=== PATIENT | female | born 1995 | race Caucasian/White ===

== ENCOUNTER 2016-12-15 16:10 | Emergency (ER) | payer OTHER ==
[~2016-12-15] VITALS: Ht 167.6 cm; Wt 149.7 kg
[~2016-12-15 16:10] MED LIST: CLIN-44 PO; DOXY100T PO; HYDR-971 PO; LEVO500T38 PO; METR500T4 PO; ONDA4TAB10 SL; PNV1TABL4 PO; SERT50TA PO; TRAM-29 PO; vitamin d
[2016-12-15 16:17] VITALS: BP 144/87
[2016-12-15 17:10] LABS: BILIRUBIN,URINE NEGATIVE (NEG); GLUCOSE,URINE NEGATIVE (NEG); NITRITE,URINE NEGATIVE (NEG); PH,URINE 7.5; PROTEIN,URINE NEGATIVE (NEG-TRACE); UROBILINOGEN,URINE 0.2 mg/dL (0.2 mg/dL)
[2016-12-15 17:22] LABS: BACTERIA,URINE FEW /HPF (0-FEW); RBC,URINE 0 /HPF (0-2)
[2016-12-15 17:23] LABS: SQUAMOUS EPITHELIAL CELL,UR MOD /LPF
[2016-12-15] MEDS ORDERED: PREN1TAB58 PO (17:36)
--- NOTE | 2016-12-15 17:36 | PHYS DOC ---
Past Medical History Past Medical History: Anxiety Additional Past Medical Histor: hernia Past Surgical History: Cholecystectomy, Tonsillectomy Additional Past Surgical Histo: R)eye SX Alcohol Use: None Drug Use: None Adult General Chief Complaint Chief Complaint: ABDOMINAL PAIN [facility] HPI Patient is a 21 year old female with history of anxiety who presents today stating she believes she is . Patient states she did a test at home and it was faintly positive. She states her last menstrual cycle was a month ago approximately November 07, 2016. She is a G 1 para 1. Patient states she also feels . Patient denies abdominal pain urgency frequency or dysuria, she states she would like to be checked to make sure she is . Review of Systems Review of Systems Constitutional: Denies fever or chills [] Eyes: Denies change in visual acuity, redness, or eye pain [] HENT: Denies nasal congestion or sore throat [] Respiratory: Denies cough or shortness of breath [] Cardiovascular: No additional information not addressed in HPI [] GI: check : Denies dysuria or hematuria [] Musculoskeletal: Denies back pain or joint pain [] Integument: Denies rash or skin lesions [] Neurologic: Denies headache, focal weakness or sensory changes [] Endocrine: Denies polyuria or polydipsia [] Allergies Allergies Allergies Coded Allergies Type Severity Reaction Last Updated Verified Penicillins Allergy Intermediate 09/02/16 Yes cefprozil Allergy Intermediate 09/02/16 Yes Physical Exam Physical Exam Constitutional: Well developed, well nourished, no acute distress, non-toxic appearance. [] HENT: Normocephalic, atraumatic, bilateral external ears normal, oropharynx moist, no oral exudates, nose normal. [] Eyes: PERRLA, EOMI, conjunctiva normal, no discharge. [] Neck: Normal range of motion, no tenderness, supple, no stridor. [] Cardiovascular:Heart rate regular rhythm, no murmur [] Lungs & Thorax: Bilateral breath sounds clear to auscultation [] Abdomen: Bowel sounds normal, soft, no tenderness, no masses, no pulsatile masses. [] Skin: Warm, dry, no erythema, no rash. [] Back: No tenderness, no CVA tenderness. [] Extremities: No tenderness, no cyanosis, no clubbing, ROM intact, no edema. [] Neurologic: Alert and oriented X 3, normal motor function, normal sensory function, no focal deficits noted. [] Psychologic: Affect normal, judgement normal, mood normal. [] Current Patient Data Vital Signs Vital Signs Date Time Temp Pulse Resp B/P Pulse Ox O2 Delivery O2 Flow Rate FiO2 12/15/16 16:17 98.7 100 18 144/87 100 Room Air 98.7 Lab Values Laboratory Tests Test 12/15/16 16:20 Urine Collection Type Unknown Urine Color Yellow Urine Clarity Clear Urine pH 7.5 Urine Specific [place] 1.020 Urine Protein Negativemg/dL (NEG-TRACE) Urine Glucose (UA) Negativemg/dL (NEG) Urine Ketones (Stick) Negativemg/dL (NEG) Urine Blood Negative (NEG) Urine Nitrite Negative (NEG) Urine Bilirubin Negative (NEG) Urine Urobilinogen Dipstick 0.2mg/dL (0.2 mg/dL) Urine Leukocyte Esterase Negative (NEG) Urine RBC 0/HPF (0-2) Urine WBC 1-4/HPF (0-4) Urine Squamous Epithelial Cells Mod/LPF Urine Bacteria Few/HPF (0-FEW) Urine Mucus Slight/LPF EKG EKG [] Radiology/Procedures Radiology/Procedures [] Course & Med Decision Making Course & Med Decision Making Pertinent Labs and Imaging studies reviewed. (See chart for details) Patient is in the ED concerned she could be , her last menstrual cycle was November 07, 2016. Positive urine hCG, urine analysis is negative for infection, results were given to her, she was instructed to follow up with an OB /AIRCRAFT POWER PLANT ASSEMBLER as soon as possible. vitamins recommended. Dragon Disclaimer Dragon Disclaimer This electronic medical record was generated, in whole or in part, using a voice recognition dictation system. Departure Departure Impression: Primary Impression: Disposition: HOME, SELF-CARE Condition: STABLE Referrals: NATALIO SIMS MD (PCP) MADI DE LA TORRE Jr, MD see your RESEARCH ELECTRICIAN in one week Patient Instructions: ABCs of Additional Instructions: Your test is positive. We recommend you start taking vitamins and follow up with an RESEARCH ELECTRICIAN as soon as possible. Come back to the ED if you develop any of the following signs or symptoms including uncontrolled nausea vomiting, back pain, vaginal bleeding,or abdominal pain with cramping. Come back to the ED for any other concerns you have medically. Scripts Vits W-Ca,Fe,Fa(<1MG) ( Vitamins)1 Each Tablet1 Tab PO DAILY # 90 TAB Ref 3 Prov:RANJIT US APRN 12/15/16 Problem Qualifiers Primary Impression: Weeks of gestation: less than 8 weeks Qualified Code: Z3A.01 - Less than 8 weeks gestation of RANJIT US APRN Dec 15, 2016 17:36
== END 2016-12-15 17:40 | disposition home or self-care (01) ==
LOC: ER 16:10
DX: Z33.1 Pregnant state, incidental (principal); F41.9 Anxiety disorder, unspecified; Z88.0 Allergy status to penicillin; Z88.1 Allergy status to other antibiotic agents
CPT/HCPCS: 81001; 81025; 99283

== ENCOUNTER 2016-12-18 20:50 | Emergency (ER) | payer OTHER ==
[~2016-12-18 20:50] MED LIST changes: +PREN1TAB58 PO
[2016-12-18 21:16] VITALS: BP 132/70
[2016-12-18 22:18] LABS: BILIRUBIN,URINE NEGATIVE (NEG); GLUCOSE,URINE NEGATIVE (NEG); NITRITE,URINE NEGATIVE (NEG); PH,URINE 6.5; PROTEIN,URINE NEGATIVE (NEG-TRACE); UROBILINOGEN,URINE 0.2 mg/dL (0.2 mg/dL)
[2016-12-18 22:25] LABS: BACTERIA,URINE MODERATE /HPF (0-FEW); RBC,URINE 0 /HPF (0-2); SQUAMOUS EPITHELIAL CELL,UR MOD /LPF; WBC,URINE 0 /HPF (0-4)
--- NOTE | 2016-12-18 22:41 | PHYS DOC ---
Past Medical History Past Medical History: Anxiety Additional Past Medical Histor: hernia Past Surgical History: Cholecystectomy, Tonsillectomy Additional Past Surgical Histo: R)eye SX Alcohol Use: None Drug Use: None Adult General Chief Complaint Chief Complaint: ABDOMINAL PAIN IN HPI HPI 21-year-old female who states she's had some lower abdominal cramping but no bleeding for the last several days. She was seen in this department 3 days prior and had a urine test is positive and told to follow-up with her OB doctor. She was given vitamins at that time but no other laboratory workup was indicated. Shestates she's having continued cramping pain but again no passage of any tissue or blood. She denies any dysuria or hematuria. She denies any nausea or vomiting. She states her bowel movement normal. Review of Systems Review of Systems Constitutional: Denies fever or chills [] Eyes: Denies change in visual acuity, redness, or eye pain [] HENT: Denies nasal congestion or sore throat [] Respiratory: Denies cough or shortness of breath [] Cardiovascular: No additional information not addressed in HPI [] GI: Denies abdominal pain, nausea, vomiting, bloody stools or diarrhea [] : Denies dysuria or hematuria [] Musculoskeletal: Denies back pain or joint pain [] Integument: Denies rash or skin lesions [] Neurologic: Denies headache, focal weakness or sensory changes [] Endocrine: Denies polyuria or polydipsia [] Allergies Allergies Allergies Coded Allergies Type Severity Reaction Last Updated Verified Penicillins Allergy Intermediate 09/02/16 Yes cefprozil Allergy Intermediate 09/02/16 Yes Physical Exam Physical Exam Constitutional: Well developed, well nourished, no acute distress, non-toxic appearance. [] HENT: Normocephalic, atraumatic, bilateral external ears normal, oropharynx moist, no oral exudates, nose normal. [] Eyes: PERRLA, EOMI, conjunctiva normal, no discharge. [] Neck: Normal range of motion, no tenderness, supple, no stridor. [] Cardiovascular:Heart rate regular rhythm, no murmur [] Lungs & Thorax: Bilateral breath sounds clear to auscultation [] Abdomen: Bowel sounds normal, soft, mild suprapubic tenderness to palpation, no masses, no pulsatile masses. [] Skin: Warm, dry, no erythema, no rash. [] Back: No tenderness, no CVA tenderness. [] Extremities: No tenderness, no cyanosis, no clubbing, ROM intact, no edema. [] Neurologic: Alert and oriented X 3, normal motor function, normal sensory function, no focal deficits noted. [] Psychologic: Affect normal, judgement normal, mood normal. [] Current Patient Data Vital Signs Vital Signs Date Time Temp Pulse Resp B/P Pulse Ox O2 Delivery O2 Flow Rate FiO2 12/18/16 21:16 97.8 98 20 132/70 98 Room Air 97.8 Lab Values Laboratory Tests Test 12/18/16 20:50 12/18/16 21:35 12/18/16 21:56 POC Urine HCG, Qualitative Hcg positive (Negative) Urine Collection Type Unknown Urine Color Yellow Urine Clarity Clear Urine pH 6.5 Urine Specific [place] 1.025 Urine Protein Negativemg/dL (NEG-TRACE) Urine Glucose (UA) Negativemg/dL (NEG) Urine Ketones (Stick) Negativemg/dL (NEG) Urine Blood Negative (NEG) Urine Nitrite Negative (NEG) Urine Bilirubin Negative (NEG) Urine Urobilinogen Dipstick 0.2mg/dL (0.2 mg/dL) Urine Leukocyte Esterase Negative (NEG) Urine RBC 0/HPF (0-2) Urine WBC 0/HPF (0-4) Urine Squamous Epithelial Cells Mod/LPF Urine Bacteria Moderate/HPF (0-FEW) Urine Mucus Slight/LPF Maternal Serum HCG Beta Subunit 343mIU/mL (0-6) H EKG EKG [] Radiology/Procedures Radiology/Procedures Transvaginal OB ultrasound demonstrates the following: FINDINGS Transabdominal imaging: Uterus measures 9.6 centimeters in length. No intrauterine is identified. Right ovary measures 4.1 x 3.3 x 3.0 centimeters and demonstrates presence of a cyst. Left ovary is not seen with transabdominal imaging. No adnexal masses are identified. Endovaginal imaging: Uterus measures 11.0 centimeters in length. No intrauterine is identified. Endometrial thickness is 11 millimeters. Nabothian cyst is seen. The right ovary measures 2.9 x 3.3 x 2.3 centimeters and demonstrates small corpus luteum cyst measuring 1.7 centimeters in maximum dimension. Left ovary measures 1.2 x 2.3 x 1.4 centimeters and is unremarkable. Both ovaries demonstrate normal vascular flow upon Doppler interrogation and are without evidence of torsion. No adnexal masses are seen. No significant free fluid is identified. Course & Med Decision Making Course & Med Decision Making Pertinent Labs and Imaging studies reviewed. (See chart for details) This 21-year-old female has a transvaginal ultrasound that demonstrates no intrauterine at this time but due to the her low beta hCG level this is likely too early to see an intrauterine and it is recommended that she [id number] beta hCG levels and repeat ultrasound. Return workup is negative. Her urinalysis is also negative. I counseld her to Take Tylenol and Follow up Closely with Her OB Doctor in the Next Week As She Is Too Early in Her at This Time to Visualize an IUP. She was discharged without incident. Dragon Disclaimer Dragon Disclaimer This electronic medical record was generated, in whole or in part, using a voice recognition dictation system. Departure Departure Impression: Primary Impression: Abdominal pain during Disposition: 01 HOME, SELF-CARE Admitting Physician: Other Condition: STABLE Referrals: NATLAIO SIMS MD (PCP) Patient Instructions: Abdominal Pain During , [id number] Additional Instructions: Please follow up with your OB doctor in the next 2-3 days for your abdominal pain. Take your vitamins as prescribed and take tylenol for your pain. Return to the ER if you develop any worsening of your pain or bleeding. GREG ROE DO Dec 18, 2016 22:41
--- NOTE | 2016-12-18 22:57 | RAD ---
PROCEDURE First trimester OB ultrasound with endovaginal imaging. HISTORY Pelvic pain for 2 days. Beta hCG level is 343. TECHNIQUE Transabdominal imaging was performed for initial evaluation of the pelvis. Endovaginal imaging was performed for optimal characterization of the endometrium and to increase sensitivity for detection of intrauterine . COMPARISON None. FINDINGS Transabdominal imaging: Uterus measures 9.6 centimeters in length. No intrauterine is identified. Right ovary measures 4.1 x 3.3 x 3.0 centimeters and demonstrates presence of a cyst. Left ovary is not seen with transabdominal imaging. No adnexal masses are identified. Endovaginal imaging: Uterus measures 11.0 centimeters in length. No intrauterine is identified. Endometrial thickness is 11 millimeters. Nabothian cyst is seen. The right ovary measures 2.9 x 3.3 x 2.3 centimeters and demonstrates small corpus luteum cyst measuring 1.7 centimeters in maximum dimension. Left ovary measures 1.2 x 2.3 x 1.4 centimeters and is unremarkable. Both ovaries demonstrate normal vascular flow upon Doppler interrogation and are without evidence of torsion. No adnexal masses are seen. No significant free fluid is identified. IMPRESSION No intrauterine is identified. No adnexal masses are seen. Given low beta HCG level, most likely possibility is exceedingly early intrauterine . As no definite intrauterine is identified, ectopic cannot be entirely excluded. Recommend serial beta HCG levels and pelvic ultrasound as clinically indicated. Electronically signed by: Martínez Espino MD (Dec 18, 2016 22:55:57)
== END 2016-12-18 23:17 | disposition home or self-care (01) ==
LOC: ER 20:50
DX: O26.899 Other specified pregnancy related conditions, unspecified trimester (principal); R10.30 Lower abdominal pain, unspecified; Z3A.00 Weeks of gestation of pregnancy not specified; Z90.49 Acquired absence of other specified parts of digestive tract; Z88.0 Allergy status to penicillin; Z88.1 Allergy status to other antibiotic agents
CPT/HCPCS: 36415; 76801; 76817; 81001; 81025; 84702; 87086; 99285-25

== ENCOUNTER 2016-12-25 08:56 | Emergency (ER) | payer OTHER ==
[~2016-12-25] VITALS: Ht 170.2 cm; Wt 148.3 kg
--- NOTE | 2016-12-25 09:20 | PHYS DOC ---
Past Medical History Past Medical History: Anxiety Additional Past Medical Histor: hernia Past Surgical History: Cholecystectomy, Tonsillectomy Additional Past Surgical Histo: R)eye SX Alcohol Use: None Drug Use: None Adult General Chief Complaint Chief Complaint: V[facility]AL BLEEDING [facility] HPI Patient is a 21 year old female presents emergency room with complaint of vaginal bleeding that began this morning. Patient states that she is approximately 4 weeks . However, she states her last menstrual period was between November 25 to . Patient is actually been seen here twice previously with related complaints. She had an ultrasound performed last week that was inconclusive for a positive IUP. Patient is a without any history of genitourinary disease or surgeries. Patient states that she had intercourse last night without any complications. She states that she is pending an appointment with Dr. Pathak for her initial OB appointment tomorrow. Review of Systems Review of Systems Constitutional: Denies fever or chills [] Eyes: Denies change in visual acuity, redness, or eye pain [] HENT: Denies nasal congestion or sore throat [] Respiratory: Denies cough or shortness of breath [] Cardiovascular: No additional information not addressed in HPI [] GI: Denies abdominal pain, nausea, vomiting, bloody stools or diarrhea [] : Denies dysuria or hematuria [] Musculoskeletal: Denies back pain or joint pain [] Integument: Denies rash or skin lesions [] Neurologic: Denies headache, focal weakness or sensory changes [] Endocrine: Denies polyuria or polydipsia [] Allergies Allergies Allergies Coded Allergies Type Severity Reaction Last Updated Verified Penicillins Allergy Intermediate 09/02/16 Yes cefprozil Allergy Intermediate 09/02/16 Yes Physical Exam Physical Exam Constitutional: Well developed, well nourished, no acute distress, non-toxic appearance. [] HENT: Normocephalic, atraumatic, bilateral external ears normal, oropharynx moist, no oral exudates, nose normal. [] Eyes: PERRLA, EOMI, conjunctiva normal, no discharge. [] Neck: Normal range of motion, no tenderness, supple, no stridor. [] Cardiovascular:Heart rate regular rhythm, no murmur [] Lungs & Thorax: Bilateral breath sounds clear to auscultation [] Abdomen: Bowel sounds normal, soft, no tenderness, no masses, no pulsatile masses. Hot Punch Press Operator and advertising assistant is Terra, RN. Vaginal vault with a scant amount of dark blood. There are no clots or tissue in the vaginal vault. External os is closed. Patient has no complaints of adnexal tenderness. There are no palpable masses upon exam. Skin: Warm, dry, no erythema, no rash. [] Back: No tenderness, no CVA tenderness. [] Extremities: No tenderness, no cyanosis, no clubbing, ROM intact, no edema. [] Neurologic: Alert and oriented X 3, normal motor function, normal sensory function, no focal deficits noted. [] Psychologic: Affect normal, judgement normal, mood normal. [] Current Patient Data Vital Signs Vital Signs Date Time Temp Pulse Resp B/P Pulse Ox O2 Delivery O2 Flow Rate FiO2 12/25/16 09:10 98.3 95 18 132/70 99 Room Air 98.3 Lab Values Laboratory Tests Test 12/25/16 09:30 Maternal Serum HCG Beta Subunit 130mIU/mL (0-6) H EKG EKG [] Radiology/Procedures Radiology/Procedures [facility] [address] [place] [address] IMAGING REPORT Signed PATIENT: ERICK CASTANON ACCOUNT: [id number] : 1995 LOCATION: ER AGE: 21 SEX: F EXAM STATUS: REG ER ORD. PHYSICIAN: MARK GUILLEN REASON: vaginal bleeding this morning. . LMP 11/25. Prev US 12/18. PROCEDURE: OB < 14 WKS Indication bleeding. Possible . Transabdominal scans were obtained. Transvaginal imaging was not performed. There is no independent confirmation of . No quantitative hCG value is available. Note is made of an ultrasound examination 12/18/2016 and the accompanying report. The uterus measures 10.2 x 5.5 x 5.6 cm. No definite intrauterine gestational sac, yolk sac or pole is seen on the images submitted. Endometrial thickness is approximately 8 mm. The ovaries appeared unremarkable. There is no significant free fluid. IMPRESSION: Normal study. No evidence of IUP. Finding should be correlated with a quantitative hCG value. Diagnostic considerations would include non state, early , spontaneous or ectopic DICTATED and SIGNED BY: ANDRIA DIAZ MD DATE: 12/25/16 1009 CC: MARK GUILLEN; NATALIO SIMS MD ~ Course & Med Decision Making Course & Med Decision Making Pertinent Labs and Imaging studies reviewed. (See chart for details) [] Dragon Disclaimer Dragon Disclaimer This electronic medical record was generated, in whole or in part, using a voice recognition dictation system. Departure Departure Impression: Primary Impression: Miscarriage Disposition: HOME, SELF-CARE Condition: STABLE Referrals: NATALIO SIMS MD (PCP) HARITHA PATHAK MD Patient Instructions: Miscarriage, [id number] Additional Instructions: 1. The ultrasound and hormone level test done today indicate that you have had a miscarriage. 2. Review the discharge instructions for self-care and reasons to return to the emergency department. 3. Absolutely no intercourse or insert anything into your vagina until you're cleared to do so by WOOD TYPE FINISHER. 4. Call Dr. Pathak's office this afternoon or tomorrow to schedule an appointment for Friday for reevaluation and hormone level check. MARK GUILLEN Dec 25, 2016 09:20
--- NOTE | 2016-12-25 10:41 | RAD ---
Indication bleeding. Possible . Transabdominal scans were obtained. Transvaginal imaging was not performed. There is no independent confirmation of . No quantitative hCG value is available. Note is made of an ultrasound examination 12/18/2016 and the accompanying report. The uterus measures 10.2 x 5.5 x 5.6 cm. No definite intrauterine gestational sac, yolk sac or pole is seen on the images submitted. Endometrial thickness is approximately 8 mm. The ovaries appeared unremarkable. There is no significant free fluid. IMPRESSION: Normal study. No evidence of IUP. Finding should be correlated with a quantitative hCG value. Diagnostic considerations would include non state, early , spontaneous or ectopic
[2016-12-25 11:00] VITALS: BP 127/70
[2016-12-25 11:18] LABS: BILIRUBIN,URINE NEGATIVE (NEG); GLUCOSE,URINE NEGATIVE (NEG); NITRITE,URINE NEGATIVE (NEG); PH,URINE 5.5; PROTEIN,URINE NEGATIVE (NEG-TRACE); UROBILINOGEN,URINE 0.2 mg/dL (0.2 mg/dL)
[2016-12-25 11:33] LABS: RBC,URINE >40 /HPF (0-2)
[2016-12-25 11:34] LABS: BACTERIA,URINE 0 /HPF (0-FEW); SQUAMOUS EPITHELIAL CELL,UR MOD /LPF; WBC,URINE 0 /HPF (0-4)
== END 2016-12-25 11:44 | disposition home or self-care (01) ==
LOC: ER 08:56
DX: O03.9 Complete or unspecified spontaneous abortion without complication (principal); F41.9 Anxiety disorder, unspecified; Z3A.01 Less than 8 weeks gestation of pregnancy; Z88.0 Allergy status to penicillin; Z88.8 Allergy status to other drugs, medicaments and biological substances; Z90.49 Acquired absence of other specified parts of digestive tract
CPT/HCPCS: 36415; 76801; 81001; 84702; 86900; 86901; 99285-25

== ENCOUNTER → 2017-02-03 | Outpatient (CLI) | payer OTHER ==
[2017-02-03 15:13] LABS: BASO # 0.1 x10^3/uL (0.0-0.2); BASO % 1 % (0-3); EOS % 3 % (0-3); HEMOGLOBIN 14.8 g/dL (12.0-15.5); LYMPH # 2.6 x10^3/uL (1.0-4.8); LYMPH % 29 % (24-48); MEAN CORPUSCULAR HEMOGLOBIN 31 pg (25-35); MEAN CORPUSCULAR HGB CONC 35 g/dL (31-37); MEAN CORPUSCULAR VOLUME 89 fL (79-100); MONO % 6 % (0-9); NEUT % 61 % (31-73); PLATELET COUNT 328 x10^3/uL (140-400); RED BLOOD COUNT 4.83 x10^6/uL (3.50-5.40); RED CELL DISTRIBUTION WIDTH 13.2 % (11.5-14.5)
--- NOTE | 2017-02-03 15:15 | RAD ---
Indication fever. Smoking history. Pain. Frontal and lateral views of the chest were obtained and are compared to an exam 04/24/2016. The heart and pulmonary vessels appear normal. The lungs are clear. There is no pleural fluid or pneumothorax. IMPRESSION: No acute or focal process is seen in the chest
== END | disposition home or self-care (01) ==
LOC: LAB 14:40
PROVIDERS: ATTEND Surgery
DX: R10.33 Periumbilical pain (principal); R50.9 Fever, unspecified; F17.200 Nicotine dependence, unspecified, uncomplicated
CPT/HCPCS: 36415; 71020; 85027

== ENCOUNTER 2017-03-29 14:33 | Emergency (ER) | payer OTHER ==
[~2017-03-29] VITALS: Ht 172.7 cm; Wt 149.7 kg
[~2017-03-29 14:33] MED LIST changes: -CLIN-44 PO; +CLIN150C14 PO; -LEVO500T38 PO; +LEVO500T59 PO; -METR500T4 PO; +METR500T8 PO; -TRAM-29 PO; +TRAM-48 PO
[2017-03-29] MEDS ORDERED: IV NORMAL SALINE 1000ML BAG 1,000 ML IV SCH (15:56)
[2017-03-29] MEDS ORDERED: ONDANSETRON PF 4 MG/2 ML VIAL. IV ONE (16:00)
--- NOTE | 2017-03-29 16:10 | ED.ADGEN ---
Past Medical History Past Medical History: Anxiety Additional Past Medical Histor: hernia Past Surgical History: Cholecystectomy, Tonsillectomy Additional Past Surgical Histo: R)eye SX Alcohol Use: None Drug Use: None Adult General Chief Complaint Chief Complaint: NAUSEA/VOMITING/DIARRHA HPI HPI Patient is a 22 year old and, history of anxiety, depression, umbilical hernia, who presents to the emergency department with a complaint of intermittent nausea and vomiting over the past 3 days. Patient states that she does not feel nauseous currently, but over the last several days she will sometimes experience nausea and vomiting after eating. She states that she has been eating a variety of foods, but has been avoiding meat and spicy foods. She states she is status post a cholecystectomy. She denies any abdominal pain, any fevers or chills, any sick contacts or exposures, any urinary complaints, any weakness, numbness, tingling, rashes, swelling extremities, travel. States her last bowel movement was today and was normal. Review of Systems Review of Systems Constitutional: Denies fever or chills. [] Eyes: Denies change in visual acuity. [] HENT: Denies nasal congestion or sore throat. [] Respiratory: Denies cough or shortness of breath. [] Cardiovascular: Denies chest pain or edema. [] GI: Denies abdominal pain, no bloody stools or diarrhea, complaining of nausea and vomiting, intermittent over the past several days. : Denies dysuria. [] Musculoskeletal: Denies back pain or joint pain. [] Integument: Denies rash. [] Neurologic: Denies headache, focal weakness or sensory changes. [] Endocrine: Denies polyuria or polydipsia. [] Lymphatic: Denies swollen glands. [] Psychiatric: Denies depression or anxiety. [] Current Medications Current Medications Current Medications Medications (Trade) Dose Ordered Sig/Darnell Start Time Stop Time Status Last Admin Dose Admin Ondansetron HCl (Zofran) 4 mg 1X ONCE 03/29/17 16:00 03/29/17 16:01 DC 03/29/17 16:28 4 MG Sodium Chloride 1,000 ml @ 1,000 mls/hr Q1H 03/29/17 15:56 03/29/17 16:55 03/29/17 16:28 1,000 MLS/HR Allergies Allergies Allergies Coded Allergies Type Severity Reaction Last Updated Verified Penicillins Allergy Intermediate 09/02/16 Yes cefprozil Allergy Intermediate 09/02/16 Yes Physical Exam Physical Exam Constitutional: Well developed, well nourished, no acute distress, non-toxic appearance. [] HENT: Normocephalic, atraumatic, bilateral external ears normal, oropharynx moist, no oral exudates, nose normal. [] Eyes: PERRLA, EOMI, conjunctiva normal, no discharge. [] Neck: Normal range of motion, no tenderness, supple, no stridor. [] Cardiovascular:Heart rate regular rhythm, no murmur, S1, S2, no rubs or gallops. [] Lungs & Thorax: Bilateral breath sounds clear to auscultation, no wheezing, rhonchi, rales. No chest or crepitus or tenderness. [] Abdomen: Bowel sounds normal, obese, soft, no tenderness, no masses, no pulsatile masses. No rebound, rigidity, no guarding. [] Skin: Warm, dry, no erythema, no rash. [] Back: No tenderness, no CVA tenderness. [] Extremities: No tenderness, no cyanosis, no clubbing, ROM intact, no edema. Negative Homans sign. [] Neurologic: Alert and oriented X 3, normal motor function, normal sensory function, no focal deficits noted. [] Psychologic: Affect normal, judgement normal, mood normal. [] Current Patient Data Vital Signs Vital Signs Date Time Temp Pulse Resp B/P (MAP) Pulse Ox O2 Delivery O2 Flow Rate FiO2 03/29/17 15:10 98.1 105 20 150/89 (109) 100 Room Air 98.1 Lab Values Laboratory Tests Test 03/29/17 15:05 03/29/17 15:20 Urine Collection Type Unknown Urine Color Yellow Urine Clarity Clear Urine pH 5.0 Urine Specific [place] 1.020 Urine Protein Negative mg/dL (NEG-TRACE) Urine Glucose (UA) Negative mg/dL (NEG) Urine Ketones (Stick) Negative mg/dL (NEG) Urine Blood Negative (NEG) Urine Nitrite Negative (NEG) Urine Bilirubin Negative (NEG) Urine Urobilinogen Dipstick 0.2 mg/dL (0.2 mg/dL) Urine Leukocyte Esterase Negative (NEG) Urine RBC 0 /HPF (0-2) Urine WBC 0 /HPF (0-4) Urine Squamous Epithelial Cells Mod /LPF Urine Bacteria 0 /HPF (0-FEW) Urine Mucus Slight /LPF Urine Opiates Screen Neg (NEG) Urine Methadone Screen Neg (NEG) Urine Barbiturates Neg (NEG) Urine Phencyclidine Screen Neg (NEG) Urine Amphetamine/Methamphetamine Neg (NEG) Urine Benzodiazepines Screen Neg (NEG) Urine Cocaine Screen Neg (NEG) Urine Cannabinoids Screen Neg (NEG) Urine Ethyl Alcohol Neg (NEG) White Blood Count 8.8 x10^3/uL (4.0-11.0) Red Blood Count 4.87 x10^6/uL (3.50-5.40) Hemoglobin 15.0 g/dL (12.0-15.5) Hematocrit 43.5 % (36.0-47.0) Mean Corpuscular Volume 89 fL (79-100) Mean Corpuscular Hemoglobin 31 pg (25-35) Mean Corpuscular Hemoglobin Concent 34 g/dL (31-37) Red Cell Distribution Width 13.3 % (11.5-14.5) Platelet Count 306 x10^3/uL (140-400) Neutrophils (%) (Auto) 66 % (31-73) Lymphocytes (%) (Auto) 27 % (24-48) Monocytes (%) (Auto) 5 % (0-9) Eosinophils (%) (Auto) 2 % (0-3) Basophils (%) (Auto) 1 % (0-3) Neutrophils # (Auto) 5.8 x10^3uL (1.8-7.7) Lymphocytes # (Auto) 2.4 x10^3/uL (1.0-4.8) Monocytes # (Auto) 0.4 x10^3/uL (0.0-1.1) Eosinophils # (Auto) 0.2 x10^3/uL (0.0-0.7) Basophils # (Auto) 0.1 x10^3/uL (0.0-0.2) Sodium Level 141 mmol/L (136-145) Potassium Level 3.6 mmol/L (3.5-5.1) Chloride Level 102 mmol/L (98-107) Carbon Dioxide Level 31 mmol/L (21-32) Anion Gap 8 (6-14) Blood Urea Nitrogen 7 mg/dL (7-20) Creatinine 0.8 mg/dL (0.6-1.0) Estimated GFR (Cockcroft-Gault) 88.9 BUN/Creatinine Ratio 9 (6-20) Glucose Level 110 mg/dL (70-99) H Calcium Level 8.9 mg/dL (8.5-10.1) Total Bilirubin 0.2 mg/dL (0.2-1.0) Aspartate Amino Transferase (AST) 30 U/L (15-37) Alanine Aminotransferase (ALT) 51 U/L (14-59) Alkaline Phosphatase 68 U/L (46-116) Total Protein 7.8 g/dL (6.4-8.2) Albumin 3.9 g/dL (3.4-5.0) Albumin/Globulin Ratio 1.0 (1.0-1.7) Lipase 129 U/L (73-393) Laboratory Tests 03/29/17 15:20 Laboratory Tests 03/29/17 15:20 EKG EKG ECG: Rhythm strip: Heart rate 100 bpm, sinus tachycardia, no ectopy. As interpreted by me. [] Radiology/Procedures Radiology/Procedures Acute abdominal series: 3 view: Normal cardiopulmonary silhouette, no infiltrates, effusions, soft tissue or bone abdomen is identified. Patient with stool and bowel gas throughout, no evidence of air-fluid levels or obstruction. As interpreted by me. [] Course & Med Decision Making Course & Med Decision Making Pertinent Labs and Imaging studies reviewed. (See chart for details) Patient well-appearing, new business rate are moist, noted to be mildly tachycardic in the emergency department, heart rate of mid 90s to 103, sinus tachycardia on the monitor. Afebrile, experiencing any symptoms, not currently experiencing nausea at this time, has not experienced any abdominal pain. Due to the length the patient's symptoms, after discussion and examination proceeded with acute abdominal series, which reveal some concern for possible constipation, but no evidence of obstruction or other concerning findings, and laboratory studies which were unremarkable. I did discuss these findings with patient, heart rate is now in the 80s to low 90s, she remains comfortable and asymptomatic in the ED. We did discuss concerning symptoms that would prompt return, patient to follow-up with her primary care provider symptoms persist for more than additional 3 days, use Zofran as needed, and to return to the ED if any new or concerning symptoms as discussed develop. Patient voiced understanding and agreement with this plan, discharged home with dietary instructions, precautions, and prescription as stated. Dragon Disclaimer Dragon Disclaimer This electronic medical record was generated, in whole or in part, using a voice recognition dictation system. Departure Impression: Primary Impression: Nausea & vomiting Disposition: 01 HOME, SELF-CARE Condition: STABLE Scripts Ondansetron Hcl (ZOFRAN) 4 Mg Tablet 1 TAB PO Q8HRS Y for NAUSEA, #12 TAB Prov: FABIANA ORTIZ DO 03/29/17 FABIANA ORTIZ DO Mar 29, 2017 16:10
[2017-03-29 16:13] LABS: BASO # 0.1 x10^3/uL (0.0-0.2); BASO % 1 % (0-3); EOS % 2 % (0-3); HEMATOCRIT 43.5 % (36.0-47.0); LYMPH # 2.4 x10^3/uL (1.0-4.8); LYMPH % 27 % (24-48); MEAN CORPUSCULAR HEMOGLOBIN 31 pg (25-35); MEAN CORPUSCULAR HGB CONC 34 g/dL (31-37); MEAN CORPUSCULAR VOLUME 89 fL (79-100); MONO % 5 % (0-9); NEUT % 66 % (31-73); PLATELET COUNT 306 x10^3/uL (140-400); RED BLOOD COUNT 4.87 x10^6/uL (3.50-5.40); RED CELL DISTRIBUTION WIDTH 13.3 % (11.5-14.5); WHITE BLOOD COUNT 8.8 x10^3/uL (4.0-11.0)
[2017-03-29 16:15] VITALS: BP 145/73
[2017-03-29 16:17] LABS: BILIRUBIN,URINE NEGATIVE (NEG); GLUCOSE,URINE NEGATIVE (NEG); NITRITE,URINE NEGATIVE (NEG); PROTEIN,URINE NEGATIVE (NEG-TRACE); UROBILINOGEN,URINE 0.2 mg/dL (0.2 mg/dL)
[2017-03-29 16:23] LABS: BARBITURATES NEG (NEG); BENZODIAZEPINES NEG (NEG); CANNABINOIDS NEG (NEG); COCAINE NEG (NEG); METHADONE NEG (NEG); OPIATES NEG (NEG); PHENCYCLIDINE NEG (NEG)
[2017-03-29 16:28] LABS: BACTERIA,URINE 0 /HPF (0-FEW); RBC,URINE 0 /HPF (0-2); SQUAMOUS EPITHELIAL CELL,UR MOD /LPF; WBC,URINE 0 /HPF (0-4)
[2017-03-29] MEDS ORDERED: ONDA4TAB7 PO (16:36)
[2017-03-29 16:40] LABS: CALCIUM 8.9 mg/dL (8.5-10.1); CREATININE 0.8 mg/dL (0.6-1.0); GFR 88.9; POTASSIUM 3.6 mmol/L (3.5-5.1)
[2017-03-29 16:46] LABS: ALBUMIN 3.9 g/dL (3.4-5.0); TOTAL BILIRUBIN 0.2 mg/dL (0.2-1.0); TOTAL PROTEIN 7.8 g/dL (6.4-8.2)
--- NOTE | 2017-03-30 08:44 | RAD ---
ACUTE ABDOMEN SERIES History: N/V x3 days. Comparison: Two-view chest 02/03/2017. Findings: Frontal chest and supine and upright views of the abdomen. Cardiomediastinal silhouette is normal. There is no pleural effusion or pneumothorax. The lungs are clear. No pneumoperitoneum is identified. Cholecystectomy clip. Air-fluid levels on the upright image. Stool in the ascending colon. No dilated loops of bowel are seen. IMPRESSION: 1. No acute cardiopulmonary process. 2. Nonobstructive bowel gas pattern.
== END 2017-03-29 16:55 | disposition home or self-care (01) ==
LOC: ER 14:33
DX: R11.2 Nausea with vomiting, unspecified (principal); Z88.0 Allergy status to penicillin; Z88.8 Allergy status to other drugs, medicaments and biological substances
CPT/HCPCS: 36415; 74022; 80053; 80305; 80320; 81001; 81025; 83690; 85027; 96374; 99285; J2405; J7030; G0481

== ENCOUNTER 2017-04-23 10:09 | Day surgery (SDC) | payer OTHER ==
[~2017-04-23 10:09] MED LIST changes: +HYDROmorphone 2 MG/ML VIAL IV PRN; +IV RINGERS,LACTATED 1000ML 1,000 ML IV SCH; +LIDOCAINE 1% 1 ML SYRINGE. ID PRN; +ONDA4TAB7 PO; +PROCHLORPERAZINE 10 MG/2 ML VIAL. IV PRN; +fentaNYL PF VIAL 100 MCG/2 ML VIAL IV PRN
[2017-04-23] MEDS ORDERED: fentaNYL PF VIAL 250 MCG/5 ML VIAL ONE (11:43)
[2017-04-23] MEDS ORDERED: ROCURONIUM 50 MG/5 ML VIAL. ONE ×2 (11:43→14:07)
[2017-04-23] MEDS ORDERED: LIDOCAINE 2% PF Vial for OR 5 ML VIAL. ONE ×2 (11:44→14:42)
[2017-04-23] MEDS ORDERED: ONDANSETRON PF 4 MG/2 ML VIAL. ONE (11:44)
[2017-04-23] MEDS ORDERED: DESFLURANE > 120 MINUTES IH ONE (11:44)
[2017-04-23] MEDS ORDERED: DEXAMETHASONE SOD PHOS 20 MG/5 ML VIAL. ONE (11:44)
[2017-04-23] MEDS ORDERED: PROPOFOL 20 ML IV ONE (11:44)
[2017-04-23 12:01] LABS: NEG OBC UR NEG; POS OBC UR POS
[2017-04-23 12:02] LABS: BASO # 0.1 x10^3/uL (0.0-0.2); BASO % 1 % (0-3); EOS % 3 % (0-3); HEMATOCRIT 43.7 % (36.0-47.0); HEMOGLOBIN 15.2 g/dL (12.0-15.5); LYMPH # 2.2 x10^3/uL (1.0-4.8); LYMPH % 25 % (24-48); MEAN CORPUSCULAR HEMOGLOBIN 31 pg (25-35); MEAN CORPUSCULAR HGB CONC 35 g/dL (31-37); MEAN CORPUSCULAR VOLUME 89 fL (79-100); MONO % 7 % (0-9); NEUT % 64 % (31-73); PLATELET COUNT 336 x10^3/uL (140-400); RED CELL DISTRIBUTION WIDTH 13.2 % (11.5-14.5); WHITE BLOOD COUNT 8.7 x10^3/uL (4.0-11.0)
[2017-04-23] MEDS ORDERED: ePHEDrine PF IN SALINE 50 MG/5 ML DISP.SYRIN IV ONE (12:12)
[2017-04-23 12:18] LABS: ALBUMIN 3.8 g/dL (3.4-5.0); CALCIUM 8.9 mg/dL (8.5-10.1); CREATININE 0.8 mg/dL (0.6-1.0); GFR 88.9; POTASSIUM 3.6 mmol/L (3.5-5.1)
[2017-04-23] MEDS ORDERED: PHENYLEPHRINE in 0.9% NACL PF 1 MG/10 ML DISP.SYRIN. IV ONE (12:29)
[2017-04-23] MEDS ORDERED: BUPIVACAINE 0.5% 50 ML VIAL. ONE (13:10)
[2017-04-23] MEDS ORDERED: ESMOLOL 100 MG/10 ML VIAL. IV ONE (13:46)
[2017-04-23] MEDS ORDERED: NEOSTIGMINE METHYLSULFATE 5 MG/5 ML SYRINGE. ONE (14:06)
[2017-04-23] MEDS ORDERED: GLYCOPYRROLATE 1 MG/5 ML VIAL. ONE (14:06)
[2017-04-23] MEDS ORDERED: IV NORMAL SALINE 1000ML BAG 1,000 ML IV ONE (14:56)
[2017-04-23] MEDS: fentaNYL PF VIAL 100 MCG/2 ML VIAL IV PRN ×2 (15:14→15:30)
--- NOTE | 2017-04-23 15:28 | DISCH ---
DISCHARGE INSTRUCTIONS Condition on Discharge Condition on Discharge: Stable Activity After Discharge Activity Instructions for Disc: Activity as tolerated, Avoid exertion Lifting Instructions after Dis: No heavy lifting Driving Instructions after Dis: Do not drive (4-5 days) Diet after Discharge Diet after Discharge: Regular Wound Incision Care Wound/Incision Care: Ice to area for comfort Other wound/incision instructi: maintain PARRIS drain MAMTA HERNANDEZ MD Apr 23, 2017 15:28
--- NOTE | 2017-04-23 15:38 | PDOC4 ---
Operative Note Operative Note Date of procedure: April 23, 2017 Procedure: Repair incarcerated umbilical hernia with mesh, primary repair of incarcerated supraumbilical hernia Preoperative diagnosis: Umbilical incisional hernia Postoperative diagnosis: Same with incarcerated omentum, incarcerated supraumbilical hernia Surgeon: James Anesthesia: Gen. endotracheal IV fluids 1 L EBL: 50 mL Indications: Shanti is a morbidly obese 22-year-old female with long- standing umbilical incisional hernia from single site cholecystectomy. She is brought for repair Operative findings: The umbilical hernia had some incarcerated omentum. A supraumbilical hernia was present with incarcerated preperitoneal fat Operative report: Patient brought to the operating suite and given a general endotracheal anesthetic and the abdomen prepped and draped in usual sterile fashion. Half percent Marcaine plain was infiltrated in an infraumbilical fashion, incision made, dissection carried down to the anterior sheath. The hernia was encircled and a Osiel drain placed around it. The umbilical skin was freed from the underlying hernia sac. The sac was opened and incarcerated omental contents reduced. The hernia sac was excised. The defect was repaired with a ventralex ST hernia patch large [place] with strap. A correct sponge count was obtained prior to placement of the mesh. The mesh was secured in 4 quadrants with 0 PDS suture. The attenuated abdominal wall was closed in running fashion using 0 PDS tied in the middle. We then turned our attention to the supraumbilical hernia. It was exposed circumferentially and the incarcerated fat contents were excised. The small defect was closed with interrupted inverted [id number] 0 Vicryl sutures. A 19 [place] round Carter drain was brought through an inferior lateral stab wound left in the subcutaneous space for postoperative drainage. Viability of the umbilical skin was of concern and as such it was excised. Subcutaneous tissue approximated with 3-0 Vicryl skin incision closed with subcuticular 4-0 Monocryl and Steri-Strips. Sterile dressing applied. Abdominal binder placed. Patient awakened from her anesthetic and taken to the recovery room in satisfactory condition. MAMTA HERNANDEZ MD Apr 23, 2017 15:38
[2017-04-23] MEDS: MORPHINE SULFATE 2 MG/ML DISP.SYRIN. IV PRN ×2 (15:43→16:08)
[2017-04-23] MEDS ORDERED: oxyCODONE/APAP 7.5/325 1 TAB TABLET ONE (15:47)
[2017-04-23] MEDS ORDERED: oxyCODONE/APAP 7.5/325 1 TAB TABLET PO ONE (16:00)
[2017-04-23 17:10] VITALS: BP 110/65
--- NOTE | 2017-04-25 16:05 | PATHOLOGY ---
PATHOLOGY REPORT * * * * * * * * FINAL DIAGNOSIS: A. Segment of focal mesothelial-lined fibromembranous and fibroadipose tissue, umbilical hernia repair: - Hernia sac showing congestion and focal submesothelial reactive fibrosis. B. Segment of skin and subcutaneous tissue, umbilical hernia repair: - Congestion, focal chronic inflammation, and focal recent hemorrhage and coagulative changes. C. Supraumbilical hernia contents: - Segment of fibroadipose tissue showing congestion and focal recent hemorrhage. (JPM:mgr; 04/25/2017) REPORT ELECTRONICALLY SIGNED BY: Jose De La Torre M.D. DATE/TIME: 04/25/2017 16:05 * * * * * * * * GROSS PATHOLOGY: A. Received in formalin labeled "Erick Kearns, umbilical hernia sac," is a piece of dark purple wilkins membranous tissue measuring 13.4 x 6.4 x 1.2 cm. No nodules or lesions are identified. House Builder tissue is submitted in cassette A1. B. Received in formalin labeled "umbilical skin" is an irregularly shaped, somewhat polypoid segment of purple wilkins to pink purple skin measuring 6.7 x 3.5 x 2.7 cm. There are focal instrument teeth clamp faustin on the skin surface, but no well defined lesions are identified grossly. The subcutaneous tissue is yellow brown, lobulated and fatty in appearance. There are no areas of unusual firmness or granularity identified. House Builder sections are submitted in cassette B1. C. Received in formalin labeled "incarcerated supraumbilical hernia contents," is a segment of thinly encapsulated, lobulated fibroadipose tissue measuring 3.8 x 3.0 x 2.7 cm in maximum dimensions. Sectioning reveals homogeneous, bright yellow cut surfaces. House Builder tissue is submitted in cassette C1. (JPM; 04/24/17) INITIAL CPT CODE(S): A; 74794 B; 64904 C; 20076 Professional services performed by [facility] at [facility] [address] [place] [id number] Technical services performed by [facility] at [address] [place] [address], [address], [place] [address]. SPECIMEN(S) RECEIVED: A.Umbilical hernia sac B.Umbilical skin C.Incarcerated supraumbilical hernia contents CLINICAL HISTORY: Umbilical hernia PATIENT: ERICK KEARNS /AGE: 4 1995 (Age: 22) PATIENT #: [id number] ALT CASE #: SPECIMEN COLLECTION DATE: 04/23/2017 SPECIMEN RECEIVED DATE: 04/24/2017 [facility] - [id number] [place] [address] - PHONE: [phone] * * * END OF REPORT * * *
== END 2017-04-23 17:26 | disposition home or self-care (01) ==
LOC: SURG 10:09
PROVIDERS: ATTEND Surgery
DX: K42.0 Umbilical hernia with obstruction, without gangrene (principal); F32.9 Major depressive disorder, single episode, unspecified; Z90.49 Acquired absence of other specified parts of digestive tract; Z82.49 Family history of ischemic heart disease and other diseases of the circulatory system; Z83.3 Family history of diabetes mellitus; Z88.1 Allergy status to other antibiotic agents; Z88.0 Allergy status to penicillin
CPT/HCPCS: 36415; 49587; 80048; 81025; 82040; 85027; C1769; J1100; J1956; J2001; J2270; J2370; J2405; J2704; J2710; J3010; J3490; J7030; 88302; 88304

== ENCOUNTER 2017-05-17 22:59 | Emergency (ER) | payer OTHER ==
[~2017-05-17] VITALS: Ht 167.6 cm; Wt 145.1 kg
[~2017-05-17 22:59] MED LIST changes: -HYDROmorphone 2 MG/ML VIAL IV PRN; -IV RINGERS,LACTATED 1000ML 1,000 ML IV SCH; -LIDOCAINE 1% 1 ML SYRINGE. ID PRN; -PROCHLORPERAZINE 10 MG/2 ML VIAL. IV PRN; -fentaNYL PF VIAL 100 MCG/2 ML VIAL IV PRN
[2017-05-17 23:35] VITALS: BP 154/79
[2017-05-18] MEDS ORDERED: HYDROcodone/APAP 5/325MG 1 TAB TABLET PO ONE
[2017-05-18] MEDS ORDERED: CLIN150C14 PO (00:01)
--- NOTE | 2017-05-18 00:01 | PHYS DOC ---
Past Medical History Past Medical History: Anxiety Additional Past Medical Histor: hernia Past Surgical History: Cholecystectomy, Tonsillectomy Additional Past Surgical Histo: R)eye SX, HERNIA Alcohol Use: None Drug Use: None Adult General Chief Complaint Chief Complaint: DENTAL PROBLEM HPI HPI Patient is a 22 year old female who presents with dental pain. The patient states 3 days ago she broke a tooth while eating. She has severe left lower jaw pain today. Denies fevers/chills, nausea/vomiting, trismus, abscess. Has a dentist appointment in 4 days but pain is severe. Review of Systems Review of Systems Constitutional: Denies fever or chills HENT: reports dental pain. Respiratory: Denies cough GI: Denies nausea, vomiting Integument: Denies rash Neurologic: Denies headache Current Medications Current Medications Current Medications Medications (Trade) Dose Ordered Sig/Darnell Start Time Stop Time Status Last Admin Dose Admin Acetaminophen/ Hydrocodone Bitart (Lortab 5/325) 2 tab 1X ONCE 05/18/17 00:00 05/18/17 00:01 DC 05/18/17 00:12 2 TAB Allergies Allergies Allergies Coded Allergies Type Severity Reaction Last Updated Verified Penicillins Allergy Intermediate 04/23/17 Yes cefprozil Allergy Intermediate 04/23/17 Yes Physical Exam Physical Exam Constitutional: Morbidly obese, no acute distress, non-toxic appearance. HENT: Normocephalic, atraumatic, bilateral external ears normal, oropharynx moist, nose normal. left mandibular premolar avulsion without abscess, mild gingival erythema, no trismus or jaw swelling. left TM is normal in appearance. Eyes: conjunctiva normal, no discharge. Cardiovascular: no edema. Lungs & Thorax: no respiratory distress. Abdomen: nondistended. Skin: Warm, dry, no erythema, no rash. Extremities: No deformity Neurologic: Alert and oriented X 3 Current Patient Data Vital Signs Vital Signs Date Time Temp Pulse Resp B/P (MAP) Pulse Ox O2 Delivery O2 Flow Rate FiO2 05/18/17 00:12 Room Air 05/17/17 23:35 98.3 91 18 98 98.3 EKG EKG [] Radiology/Procedures Radiology/Procedures [] Course & Med Decision Making Course & Med Decision Making Pertinent Labs and Imaging studies reviewed. (See chart for details) The patient presents with dental pain. Gave pain medication. She does have a ride home. Provided antibiotics and pain medication. Recommend continue ibuprofen. Follow-up as soon as possible with a dentist. Return to the emergency department for difficulty breathing or swallowing, any otherwise worsening condition. Discharged home in stable condition. [] Dragon Disclaimer Dragon Disclaimer This electronic medical record was generated, in whole or in part, using a voice recognition dictation system. Departure Departure Impression: Primary Impression: Pain, dental Disposition: HOME, SELF-CARE Condition: STABLE Referrals: NATALIO SIMS MD (PCP) Patient Instructions: Dental Pain, [id number] Additional Instructions: You were seen in the emergency department today for dental pain. Please take prescribed antibiotic. Use ibuprofen for pain. Take [place] for severe breakthrough pain. No drinking alcohol or driving while taking [place]. Follow-up with your dentist as soon as possible. Return to the emergency department for difficulty breathing or swallowing, or any otherwise worsening condition. Scripts Hydrocodone/Apap 5-325 (NORCO 5-325 TABLET) 1 Each Tablet 1 TAB PO PRN Q6HRS Y for PAIN, #10 TAB 0 Refills Prov: ERICKSON SANDOVAL MD 05/18/17 Clindamycin Hcl (CLINDAMYCIN HCL) 150 Mg Capsule 3 CAP PO TID for 7 Days, #63 CAP Prov: ERICKSON SANDOVAL MD 05/18/17 ERICKSON SANDOVAL MD May 18, 2017 00:01
[2017-05-18] MEDS ORDERED: HYDR-971 PO (00:02)
== END 2017-05-18 00:11 | disposition home or self-care (01) ==
LOC: ER 22:59
DX: S03.2XXA Dislocation of tooth, initial encounter (principal); E66.01 Morbid (severe) obesity due to excess calories; F41.9 Anxiety disorder, unspecified; Z90.49 Acquired absence of other specified parts of digestive tract; Z68.43 Body mass index [BMI] 50.0-59.9, adult; Z88.0 Allergy status to penicillin; Z88.8 Allergy status to other drugs, medicaments and biological substances; X58.XXXA Exposure to other specified factors, initial encounter; Y93.9 Activity, unspecified; Y92.89 Other specified places as the place of occurrence of the external cause; Y99.8 Other external cause status
CPT/HCPCS: 99283

== ENCOUNTER 2017-05-25 21:38 | Emergency (ER) | payer OTHER ==
[~2017-05-25] VITALS: Ht 172.7 cm; Wt 140.6 kg
[2017-05-25 22:27] LABS: BILIRUBIN,URINE NEGATIVE (NEG); GLUCOSE,URINE NEGATIVE (NEG); NITRITE,URINE NEGATIVE (NEG); PH,URINE 6.5; PROTEIN,URINE NEGATIVE (NEG-TRACE); UROBILINOGEN,URINE 0.2 mg/dL (0.2 mg/dL)
[2017-05-25 22:33] LABS: BACTERIA,URINE FEW /HPF (0-FEW); RBC,URINE OCC /HPF (0-2); SQUAMOUS EPITHELIAL CELL,UR MOD /LPF
[2017-05-25 23:05] VITALS: BP 119/78
[2017-05-25] MEDS ORDERED: ONDA4TAB10 SL (23:19)
[2017-05-25] MEDS ORDERED: HYDR-2758 PO (23:20)
--- NOTE | 2017-05-25 23:20 | PHYS DOC ---
Past Medical History Past Medical History: Anxiety Additional Past Medical Histor: hernia Past Surgical History: Cholecystectomy, Tonsillectomy Additional Past Surgical Histo: R)eye SX, HERNIA Alcohol Use: None Drug Use: None Adult General Chief Complaint Chief Complaint: ABDOMINAL PAIN HPI HPI 22 F with hx of umilical hernia s/p repair presenting with gen abd pain that is sharp nonradiating and without alleviating or exacerbating factors. ROS neg for f/c/n/v/d. neg for cp/soa.all other ros is neg. 22 yo F with abd pain. exam shows soft and nontender abd with neg murphys and mchburneys. hernia repair site is clean dry and intact. vitals show tachycardia likely 2/2 pain. I was unfortunately caring for a critical pt so ms. Kearns had to wait for a while. she at that point wanted to go home and not have her blood tested. I went into the room and discussed her case thus far and examined her abd which was unremarkable. nontender. I provided her with lortab and zofran for her symptoms to f/u with pcp tomorrow. Allergies Allergies Allergies Coded Allergies Type Severity Reaction Last Updated Verified Penicillins Allergy Intermediate 04/23/17 Yes cefprozil Allergy Intermediate 04/23/17 Yes Physical Exam Physical Exam Constitutional: Well developed, well nourished, no acute distress, non-toxic appearance. [] HENT: Normocephalic, atraumatic, bilateral external ears normal, oropharynx moist, no oral exudates, nose normal. [] Eyes: PERRLA, EOMI, conjunctiva normal, no discharge. [] Neck: Normal range of motion, no tenderness, supple, no stridor. [] Cardiovascular:Heart rate regular rhythm, no murmur [] Lungs & Thorax: Bilateral breath sounds clear to auscultation [] Abdomen: Bowel sounds normal, soft, no tenderness, no masses, no pulsatile masses. [] Skin: Warm, dry, no erythema, no rash. [] Back: No tenderness, no CVA tenderness. [] Extremities: No tenderness, no cyanosis, no clubbing, ROM intact, no edema. [] Neurologic: Alert and oriented X 3, normal motor function, normal sensory function, no focal deficits noted. [] Psychologic: Affect normal, judgement normal, mood normal. [] Current Patient Data Vital Signs Vital Signs Date Time Temp Pulse Resp B/P (MAP) Pulse Ox O2 Delivery O2 Flow Rate FiO2 05/25/17 23:05 102 119/78 (92) 98 Room Air 05/25/17 22:14 98.8 16 98.8 Lab Values Laboratory Tests Test 05/25/17 21:20 05/25/17 22:00 POC Urine HCG, Qualitative Hcg negative (Negative) Urine Collection Type Unknown Urine Color Yellow Urine Clarity Clear Urine pH 6.5 Urine Specific [place] 1.025 Urine Protein Negative mg/dL (NEG-TRACE) Urine Glucose (UA) Negative mg/dL (NEG) Urine Ketones (Stick) Negative mg/dL (NEG) Urine Blood Negative (NEG) Urine Nitrite Negative (NEG) Urine Bilirubin Negative (NEG) Urine Urobilinogen Dipstick 0.2 mg/dL (0.2 mg/dL) Urine Leukocyte Esterase Trace (NEG) Urine RBC Occ /HPF (0-2) Urine WBC 1-4 /HPF (0-4) Urine Squamous Epithelial Cells Mod /LPF Urine Bacteria Few /HPF (0-FEW) Urine Mucus Mod /LPF Microbiology 05/25/17 Urine Culture - Preliminary, Resulted 05/25/17 Urine Culture Result 1 (ISIDRO) - Preliminary, Resulted EKG EKG [] Radiology/Procedures Radiology/Procedures [] Course & Med Decision Making Course & Med Decision Making Pertinent Labs and Imaging studies reviewed. (See chart for details) [] Dragon Disclaimer Dragon Disclaimer This electronic medical record was generated, in whole or in part, using a voice recognition dictation system. Departure Departure Impression: Primary Impression: Abdominal pain Disposition: HOME, SELF-CARE Condition: STABLE Referrals: NATALIO SIMS MD (PCP) Patient Instructions: Abdominal Pain Additional Instructions: Thank you for allowing us to participate in your care today. Followup with your primary care physician in 3 days if your symptoms do not improve. Call your Primary Doctor tomorrow and inform them of your visit today. If you do not have a primary care provider you can ask for a list of our primary care providers. Return to the emergency department you have any new or concerning findings. This should be evaluated by the primary care physician and any necessary consulting services for continued management within a few days after discharge. Return to emergency room if you have any new or concerning symptoms including but not limited to fever, chills, nausea, vomiting, intractable pain, any new rashes, chest pain, shortness of air, uncontrolled bleeding, difficulty breathing, and/or vision loss. You may have been prescribed medication that can change in your level of thinking and ability to operate machinery. These medications include hydrocodone and Ativan. Also, Benadryl has been known to do this as well. Be sure to check with your pharmacist and ask if the medications you've prescribed can affect your level of consciousness. I recommend not operating heavy machinery or driving while on medication such as these. Scripts Hydrocodone Bit/Acetaminophen (HYDROCODONE-APAP 5-325 ) 1 Each Tablet 1 TAB PO PRN Q6HRS Y for PAIN, #15 TAB 0 Refills Be careful as this medication may cause you to be drowsy or tired. Do not drive on this medication. Prov: CHEYANNE CARLOS MD 05/25/17 Ondansetron (ZOFRAN ODT) 4 Mg Tab.rapdis 1 TAB SL PRN Q8HRS Y for NAUSEA, #6 TAB Prov: CHEYANNE CARLOS MD 05/25/17 CHEYANNE CARLOS MD May 25, 2017 23:20
== END 2017-05-25 23:35 | disposition home or self-care (01) ==
LOC: ER 21:38
DX: R10.84 Generalized abdominal pain (principal); Z90.49 Acquired absence of other specified parts of digestive tract; Z98.890 Other specified postprocedural states; Z88.0 Allergy status to penicillin; Z88.8 Allergy status to other drugs, medicaments and biological substances
CPT/HCPCS: 36415; 81001; 81025; 87086; 99284

== ENCOUNTER 2017-08-23 23:13 | Emergency (ER) | payer SELFPAY ==
[~2017-08-23] VITALS: Ht 172.7 cm; Wt 140.6 kg
[~2017-08-23 23:13] MED LIST changes: +HYDR-2758 PO
--- NOTE | 2017-08-23 23:31 | PHYS DOC ---
Past Medical History Past Medical History: Anxiety Additional Past Medical Histor: hernia Past Surgical History: Cholecystectomy, Tonsillectomy Additional Past Surgical Histo: R)eye SX, HERNIA Alcohol Use: None Drug Use: None Adult General Chief Complaint Chief Complaint: ABDOMINAL PAIN HPI HPI Patient is a 22 year old F who presents with suprapubic and right lower quadrant tenderness since 4 PM. Patient states the pain is beginning worse since 4 PM with no dysuria or increased frequency. Patient states last menstrual cycle was July 06 however is on medication to try to get . Patient denies any fevers. Patient only abdominal surgeries are hernia repair and gallbladder. Patient denies any nausea/vomiting/diarrhea. Patient is no other complaints. Review of Systems Review of Systems GEN: Denies fevers, chills, sweats HEENT: Denies blurred vision, sore throat CV: Denies chest pain RESP: Denies shortness of air, cough GI: Abdominal pain NEURO: Denies confusion, dizziness MSK: Denies weakness, joint pain/swelling All other systems were reviewed and found to be within normal limits, except as documented in this note. Current Medications Current Medications Current Medications Medications (Trade) Dose Ordered Sig/Darnell Start Time Stop Time Status Last Admin Dose Admin Info (Do NOT chart on this entry -- for MONITORING) 1 each PRN DAILY PRN 08/24/17 01:30 08/24/17 01:30 DC Iohexol (Omnipaque 300 Mg/ml) 75 ml 1X ONCE 08/24/17 01:30 08/24/17 01:30 DC Allergies Allergies Allergies Coded Allergies Type Severity Reaction Last Updated Verified Penicillins Allergy Intermediate 04/23/17 Yes cefprozil Allergy Intermediate 04/23/17 Yes Physical Exam Physical Exam GEN.: No apparent distress. Alert and oriented. HEENT: Head is normocephalic, atraumatic NECK: Supple. LUNGS: CTAB. HEART: RRR, S1, S2 present. Peripheral pulses intact ABDOMEN: Soft, tenderness palpation right lower quadrant, no rebound tenderness, no guarding, tenderness palpation suprapubic, no abdominal distention. Positive bowel sounds. EXTREMITIES: Without any cyanosis. NEUROLOGIC: Normal speech, normal tone PSYCHIATRIC: Normal affect, normal mood. SKIN: No ulcerations Current Patient Data Vital Signs Vital Signs Date Time Temp Pulse Resp B/P (MAP) Pulse Ox O2 Delivery O2 Flow Rate FiO2 08/23/17 23:32 98.3 99 16 151/67 (95) 100 Room Air 98.3 Lab Values Laboratory Tests Test 08/23/17 23:18 08/23/17 23:29 08/23/17 23:35 Urine Collection Type Unknown Urine Color Yellow Urine Clarity Clear Urine pH 6.0 Urine Specific [place] >=1.030 Urine Protein Negative mg/dL (NEG-TRACE) Urine Glucose (UA) Negative mg/dL (NEG) Urine Ketones (Stick) Negative mg/dL (NEG) Urine Blood Negative (NEG) Urine Nitrite Negative (NEG) Urine Bilirubin Small (NEG) Urine Urobilinogen Dipstick 0.2 mg/dL (0.2 mg/dL) Urine Leukocyte Esterase Negative (NEG) Urine RBC 0 /HPF (0-2) Urine WBC Occ /HPF (0-4) Urine Squamous Epithelial Cells Many /LPF Urine Bacteria Moderate /HPF (0-FEW) Urine Mucus Marked /LPF POC Urine HCG, Qualitative Hcg negative (Negative) White Blood Count 10.4 x10^3/uL (4.0-11.0) Red Blood Count 4.86 x10^6/uL (3.50-5.40) Hemoglobin 14.6 g/dL (12.0-15.5) Hematocrit 42.6 % (36.0-47.0) Mean Corpuscular Volume 88 fL (79-100) Mean Corpuscular Hemoglobin 30 pg (25-35) Mean Corpuscular Hemoglobin Concent 34 g/dL (31-37) Red Cell Distribution Width 13.6 % (11.5-14.5) Platelet Count 344 x10^3/uL (140-400) Neutrophils (%) (Auto) 57 % (31-73) Lymphocytes (%) (Auto) 32 % (24-48) Monocytes (%) (Auto) 8 % (0-9) Eosinophils (%) (Auto) 3 % (0-3) Basophils (%) (Auto) 1 % (0-3) Neutrophils # (Auto) 5.9 x10^3uL (1.8-7.7) Lymphocytes # (Auto) 3.3 x10^3/uL (1.0-4.8) Monocytes # (Auto) 0.8 x10^3/uL (0.0-1.1) Eosinophils # (Auto) 0.3 x10^3/uL (0.0-0.7) Basophils # (Auto) 0.1 x10^3/uL (0.0-0.2) Sodium Level 141 mmol/L (136-145) Potassium Level 3.7 mmol/L (3.5-5.1) Chloride Level 104 mmol/L (98-107) Carbon Dioxide Level 29 mmol/L (21-32) Anion Gap 8 (6-14) Blood Urea Nitrogen 11 mg/dL (7-20) Creatinine 0.9 mg/dL (0.6-1.0) Estimated GFR (Cockcroft-Gault) 77.6 BUN/Creatinine Ratio 12 (6-20) Glucose Level 100 mg/dL (70-99) H Calcium Level 9.3 mg/dL (8.5-10.1) Total Bilirubin 0.2 mg/dL (0.2-1.0) Aspartate Amino Transferase (AST) 25 U/L (15-37) Alanine Aminotransferase (ALT) 42 U/L (14-59) Alkaline Phosphatase 66 U/L (46-116) Total Protein 7.2 g/dL (6.4-8.2) Albumin 3.7 g/dL (3.4-5.0) Albumin/Globulin Ratio 1.1 (1.0-1.7) Lipase 166 U/L (73-393) Laboratory Tests 08/23/17 23:35 Laboratory Tests 08/23/17 23:35 EKG EKG [] Radiology/Procedures Radiology/Procedures Patient declined CT scan secondary to claustrophobia therefore signed out AGAINST MEDICAL ADVICE understanding all risks of acute appendicitis including and disability[] Course & Med Decision Making Course & Med Decision Making Pertinent Labs and Imaging studies reviewed. (See chart for details) ED course: Patient was seen and examined emergency room abdominal workup along with a CT scan abdomen pelvis was ordered Patient declined CT scan secondary to claustrophobia therefore signed out AGAINST MEDICAL ADVICE understanding all risks of acute appendicitis including and disability[] Discussed with the patient her UA results which had a lot of epithelial cells however the patient didn't want to be treated for UTI therefore she was prescribed Bactrim MDM: After reviewing the chart, CC/HPI/PMH, physical exam, [lab results], the patient has decided to leave AGAINST MEDICAL ADVICE and not obtain a CT scan understanding all the risks of acute appendicitis I gave the patient multiple options including sedation for the CT scan which she refused. Patient like to go home and follow-up with her family doctor. Made aware to the patient has some dysuria worse she can return at any time to receive the CT scan. Patient will be treated for UTI. Additional verbal discharge instructions were provided to the patient and that if symptoms get worse or any new symptoms arise that are worrisome to the patient she is to return to the emergency room immediately [] Dragon Disclaimer Dragon Disclaimer This electronic medical record was generated, in whole or in part, using a voice recognition dictation system. Departure Departure Impression: Primary Impression: Abdominal pain Additional Impressions: UTI (urinary tract infection) Left against medical advice Disposition: 07 AGAINST MEDICAL ADVICE Condition: STABLE Patient Instructions: Urinary Tract Infection Additional Instructions: Please follow-up with your family physician next one to 2 days and return if your right lower quadrant pain gets worse Scripts Sulfamethoxazole/Trimethoprim (BACTRIM DS TABLET) 1 Each Tablet 1 TAB PO BID for 5 Days, #10 TAB Prov: TOMAS SU DO 08/24/17 Problem Qualifiers TOMAS SU DO Aug 23, 2017 23:31
[2017-08-23 23:32] VITALS: BP 151/67
[2017-08-23 23:36] LABS: BILIRUBIN,URINE SMALL (NEG); GLUCOSE,URINE NEGATIVE (NEG); NITRITE,URINE NEGATIVE (NEG); PROTEIN,URINE NEGATIVE (NEG-TRACE); UROBILINOGEN,URINE 0.2 mg/dL (0.2 mg/dL)
[2017-08-23 23:41] LABS: BASO # 0.1 x10^3/uL (0.0-0.2); BASO % 1 % (0-3); EOS % 3 % (0-3); HEMATOCRIT 42.6 % (36.0-47.0); HEMOGLOBIN 14.6 g/dL (12.0-15.5); LYMPH # 3.3 x10^3/uL (1.0-4.8); LYMPH % 32 % (24-48); MEAN CORPUSCULAR HEMOGLOBIN 30 pg (25-35); MEAN CORPUSCULAR HGB CONC 34 g/dL (31-37); MEAN CORPUSCULAR VOLUME 88 fL (79-100); MONO % 8 % (0-9); NEUT % 57 % (31-73); PLATELET COUNT 344 x10^3/uL (140-400); RED BLOOD COUNT 4.86 x10^6/uL (3.50-5.40); RED CELL DISTRIBUTION WIDTH 13.6 % (11.5-14.5); WHITE BLOOD COUNT 10.4 x10^3/uL (4.0-11.0)
[2017-08-23 23:42] LABS: BACTERIA,URINE MODERATE /HPF (0-FEW); RBC,URINE 0 /HPF (0-2); SQUAMOUS EPITHELIAL CELL,UR MANY /LPF; WBC,URINE OCC /HPF (0-4)
[2017-08-23 23:53] LABS: CALCIUM 9.3 mg/dL (8.5-10.1); CREATININE 0.9 mg/dL (0.6-1.0); GFR 77.6; POTASSIUM 3.7 mmol/L (3.5-5.1)
[2017-08-23 23:58] LABS: ALBUMIN 3.7 g/dL (3.4-5.0); ALBUMIN/GLOBULIN RATIO 1.1 (1.0-1.7); TOTAL BILIRUBIN 0.2 mg/dL (0.2-1.0); TOTAL PROTEIN 7.2 g/dL (6.4-8.2)
[2017-08-24] MEDS ORDERED: SULF1TAB24 PO (01:18)
[2017-08-24] MEDS ORDERED: IOHEXOL 300 MG/ML 100ML VIAL. IV ONE (01:30)
[2017-08-24] MEDS ORDERED: CONTRAST GIVEN MC PRN (01:30)
== END 2017-08-24 01:26 | disposition left against medical advice (07) ==
LOC: ER 23:13
DX: N39.0 Urinary tract infection, site not specified (principal); Z90.49 Acquired absence of other specified parts of digestive tract; Z88.0 Allergy status to penicillin; Z88.8 Allergy status to other drugs, medicaments and biological substances
CPT/HCPCS: 36415; 80053; 81001; 81025; 83690; 85025; 87086; 99285-25

== ENCOUNTER 2017-10-06 16:35 | Emergency (ER) | payer OTHER ==
[2017-10-06 17:18] LABS: ADD MAN DIFF? NO
[2017-10-06 17:20] LABS: BASO # 0.1 x10^3/uL (0.0-0.2); BASO % 1 % (0-3); EOS # 0.3 x10^3/uL (0.0-0.7); EOS % 4 % (0-3); HEMATOCRIT 47.5 % (36.0-47.0); HEMOGLOBIN 16.2 g/dL (12.0-15.5); LYMPH # 2.5 x10^3/uL (1.0-4.8); LYMPH % 30 % (24-48); MEAN CORPUSCULAR HEMOGLOBIN 30 pg (25-35); MEAN CORPUSCULAR HGB CONC 34 g/dL (31-37); MEAN CORPUSCULAR VOLUME 89 fL (79-100); MONO # 0.7 x10^3/uL (0.0-1.1); MONO % 8 % (0-9); NEUT # 4.8 x10^3uL (1.8-7.7); NEUT % 57 % (31-73); PLATELET COUNT 311 x10^3/uL (140-400); RED BLOOD COUNT 5.37 x10^6/uL (3.50-5.40); WHITE BLOOD COUNT 8.4 x10^3/uL (4.0-11.0)
[2017-10-06 17:32] LABS: ANION GAP 12 (6-14); BLOOD UREA NITROGEN 10 mg/dL (7-20); BUN/CREATININE RATIO 11 (6-20); CALCIUM 9.2 mg/dL (8.5-10.1); CARBON DIOXIDE 27 mmol/L (21-32); CHLORIDE 105 mmol/L (98-107); CREATININE 0.9 mg/dL (0.6-1.0); GFR 77.6; GLUCOSE 85 mg/dL (70-99); POTASSIUM 3.9 mmol/L (3.5-5.1); SODIUM 144 mmol/L (136-145)
[2017-10-06 17:39] LABS: ALK PHOS 61 U/L (46-116); ALT (SGPT) 60 U/L (14-59); AST (SGOT) 37 U/L (15-37); TOTAL BILIRUBIN 0.2 mg/dL (0.2-1.0); TOTAL PROTEIN 7.9 g/dL (6.4-8.2)
[2017-10-06 17:56] LABS: BILIRUBIN,URINE NEGATIVE (NEG); COLOR,URINE YELLOW; GLUCOSE,URINE NEGATIVE (NEG); NITRITE,URINE NEGATIVE (NEG); PROTEIN,URINE NEGATIVE (NEG-TRACE); UROBILINOGEN,URINE 0.2 mg/dL (0.2 mg/dL)
[2017-10-06 17:57] LABS: URINE HCG POC HCG NEGATIVE (Negative)
[2017-10-06 18:01] LABS: CLARITY,URINE CLEAR
[2017-10-06 18:03] LABS: BACTERIA,URINE MODERATE /HPF (0-FEW); RBC,URINE RARE /HPF (0-2); SQUAMOUS EPITHELIAL CELL,UR MOD /LPF; WBC,URINE RARE /HPF (0-4)
== END 2017-10-06 18:22 | disposition home or self-care (01) ==
LOC: ER 16:35
DX: R10.84 Generalized abdominal pain (principal); K59.00 Constipation, unspecified; R11.10 Vomiting, unspecified; Z90.49 Acquired absence of other specified parts of digestive tract; Z88.0 Allergy status to penicillin; Z88.8 Allergy status to other drugs, medicaments and biological substances
CPT/HCPCS: 36415; 80053; 81001; 81025; 85025; 87086; 99284

== ENCOUNTER 2017-11-15 20:36 | Emergency (ER) | payer OTHER | END 2017-11-15 21:25 | disposition home or self-care (01) | LOC: ER 20:36 | DX: H66.92 Otitis media, unspecified, left ear (principal); K08.89 Other specified disorders of teeth and supporting structures; R05 Cough; Z88.0 Allergy status to penicillin; Z88.8 Allergy status to other drugs, medicaments and biological substances | CPT/HCPCS: 99283 ==

== ENCOUNTER 2018-01-01 12:57 | Emergency (ER) | payer OTHER | END 2018-01-01 13:10 | disposition home or self-care (01) | LOC: ER 12:57 | DX: K02.9 Dental caries, unspecified (principal); K08.89 Other specified disorders of teeth and supporting structures; Z90.49 Acquired absence of other specified parts of digestive tract; Z88.0 Allergy status to penicillin; Z88.8 Allergy status to other drugs, medicaments and biological substances | CPT/HCPCS: 99283 ==

== ENCOUNTER 2018-01-30 20:10 | Emergency (ER) | payer OTHER ==
[2018-01-30 20:40] LABS: URINE HCG POC HCG NEGATIVE (Negative)
== END 2018-01-30 21:05 | disposition left against medical advice (07) ==
LOC: ER 21:05
DX: R51 Headache (principal); F41.9 Anxiety disorder, unspecified
CPT/HCPCS: 81025

== ENCOUNTER 2018-03-02 20:56 | Emergency (ER) | payer OTHER | END 2018-03-02 21:38 | disposition home or self-care (01) | LOC: ER 20:56 | DX: H66.91 Otitis media, unspecified, right ear (principal); K08.89 Other specified disorders of teeth and supporting structures; Z90.49 Acquired absence of other specified parts of digestive tract; Z88.0 Allergy status to penicillin; Z88.8 Allergy status to other drugs, medicaments and biological substances | CPT/HCPCS: 99283 ==

== ENCOUNTER 2018-04-11 14:17 | Emergency (ER) | payer OTHER ==
[2018-04-11 14:47] LABS: URINE HCG POC HCG NEGATIVE (Negative)
[2018-04-11] MEDS: traMADol 50 MG TABLET PO (14:56)
== END 2018-04-11 15:23 | disposition home or self-care (01) ==
LOC: ER 15:23
DX: K08.89 Other specified disorders of teeth and supporting structures (principal); F41.9 Anxiety disorder, unspecified; E66.9 Obesity, unspecified; Z68.42 Body mass index [BMI] 45.0-49.9, adult; Z90.49 Acquired absence of other specified parts of digestive tract; Z88.0 Allergy status to penicillin; Z88.1 Allergy status to other antibiotic agents
CPT/HCPCS: 81025; 99283

== ENCOUNTER 2018-04-21 08:56 | Emergency (ER) | payer OTHER ==
[2018-04-21 09:39] LABS: URINE HCG POC HCG NEGATIVE (Negative)
[2018-04-21 09:44] LABS: BILIRUBIN,URINE NEGATIVE (NEG); CLARITY,URINE CLEAR; COLOR,URINE YELLOW; GLUCOSE,URINE NEGATIVE (NEG); NITRITE,URINE NEGATIVE (NEG); PH,URINE 5.5; PROTEIN,URINE NEGATIVE (NEG-TRACE); UROBILINOGEN,URINE 0.2 mg/dL (0.2 mg/dL)
[2018-04-21 09:53] LABS: AMORPHOUS SEDIMENT,UR PRESENT /HPF; SQUAMOUS EPITHELIAL CELL,UR OCC /LPF
[2018-04-21 09:54] LABS: BACTERIA,URINE 0 /HPF (0-FEW); RBC,URINE 0 /HPF (0-2); WBC,URINE OCC /HPF (0-4)
[2018-04-21] MEDS: IV NORMAL SALINE 1000ML BAG 1,000 ML IV (09:58)
[2018-04-21 10:14] LABS: ADD MAN DIFF? NO
[2018-04-21 10:21] LABS: BASO # 0.1 x10^3/uL (0.0-0.2); BASO % 1 % (0-3); EOS # 0.2 x10^3/uL (0.0-0.7); EOS % 3 % (0-3); HEMATOCRIT 43.4 % (36.0-47.0); HEMOGLOBIN 15.2 g/dL (12.0-15.5); LYMPH # 1.8 x10^3/uL (1.0-4.8); LYMPH % 26 % (24-48); MEAN CORPUSCULAR HEMOGLOBIN 31 pg (25-35); MEAN CORPUSCULAR HGB CONC 35 g/dL (31-37); MEAN CORPUSCULAR VOLUME 88 fL (79-100); MONO # 0.5 x10^3/uL (0.0-1.1); MONO % 7 % (0-9); NEUT # 4.3 x10^3uL (1.8-7.7); NEUT % 63 % (31-73); PLATELET COUNT 274 x10^3/uL (140-400); RED BLOOD COUNT 4.94 x10^6/uL (3.50-5.40); RED CELL DISTRIBUTION WIDTH 13.5 % (11.5-14.5); WHITE BLOOD COUNT 6.9 x10^3/uL (4.0-11.0)
[2018-04-21 10:25] LABS: ANION GAP 10 (6-14); BLOOD UREA NITROGEN 10 mg/dL (7-20); CARBON DIOXIDE 26 mmol/L (21-32); CHLORIDE 107 mmol/L (98-107); CREATININE 1.1 mg/dL (0.6-1.0); GLUCOSE 107 mg/dL (70-99); POTASSIUM 3.5 mmol/L (3.5-5.1); SODIUM 143 mmol/L (136-145)
== END 2018-04-21 11:18 | disposition home or self-care (01) ==
LOC: ER 08:56
DX: R10.9 Unspecified abdominal pain (principal); R30.0 Dysuria; Z88.0 Allergy status to penicillin; Z88.8 Allergy status to other drugs, medicaments and biological substances
CPT/HCPCS: 36415; 51701; 80048; 81001; 81025; 85025; 96360; 99284-25; J7030

== ENCOUNTER 2018-05-27 08:28 | Emergency (ER) | payer OTHER ==
[~2018-05-27] VITALS: Ht 172.7 cm; Wt 145.1 kg
[~2018-05-27 08:28] MED LIST changes: +AMOX500C PO; +AZIT250T PO; +CLIN300C8 PO; +HYOS0.1264 PO; +IBUP-1060 PO; +SULF1TAB24 PO; +TRAM50TA PO
--- NOTE | 2018-05-27 08:59 | PHYS DOC ---
Past Medical History Past Medical History: Anxiety Additional Past Medical Histor: hernia, obesity,dental pain Past Surgical History: Cholecystectomy, Tonsillectomy Additional Past Surgical Histo: HERNIA REPAIR BELLY BUTTON Alcohol Use: None Drug Use: None Adult General Chief Complaint Chief Complaint: ABDOMINAL PAIN IN HPI HPI Patient is a 23 year old female who presents to the emergency Department today with complaints of lower abdominal cramping after having a positive home test yesterday. Patient states it feels similar to menstrual cramping. She denies any vaginal discharge, bleeding, increased urinary frequency, dysuria, or hematuria. She states that she is G4, P2, A1. She had a miscarriage approximately 5-6 months ago at 3 or 4 weeks gestation. She also states she had a few episodes of nausea and vomiting last week, none within the last 24 hours. She denies any fever, back pain, or diarrhea. Patient states she had her IUD taken out on April 262017. Her last menstrual period was on April 282017. Review of Systems Review of Systems Constitutional: Denies fever or chills [] Respiratory: Denies cough or shortness of breath [] GI: Denies nausea, vomiting, or diarrhea; reports lower abdominal cramping [] : Denies irregular vaginal discharge, vaginal bleeding, increased urinary frequency, difficulty voiding, dysuria or hematuria [] Musculoskeletal: Denies back pain Neurologic: Denies headache, focal weakness or sensory changes [] All other systems were reviewed and found to be within normal limits, except as documented in this note. Allergies Allergies Allergies Coded Allergies Type Severity Reaction Last Updated Verified Penicillins Allergy Intermediate 04/23/17 Yes cefprozil Allergy Intermediate 04/23/17 Yes Physical Exam Physical Exam Constitutional: Well developed, well nourished, no acute distress, non-toxic appearance, morbidly obese. [] HENT: Normocephalic, atraumatic, bilateral external ears normal, nose normal. [] Eyes: PERRLA, conjunctiva normal, no discharge. [] Cardiovascular:Heart rate regular rhythm, no murmur [] Lungs & Thorax: Bilateral breath sounds clear to auscultation [] Abdomen: soft, no tenderness, no masses, no pulsatile masses. [] Skin: Warm, dry, no erythema, no rash. [] Back: No tenderness, no CVA tenderness. [] Neurologic: Alert and oriented X 3, normal motor function, normal sensory function, no focal deficits noted. [] Psychologic: Affect normal, judgement normal, mood normal. [] Current Patient Data Vital Signs Vital Signs Date Time Temp Pulse Resp B/P (MAP) Pulse Ox O2 Delivery O2 Flow Rate FiO2 05/27/18 09:30 90 16 144/69 (94) 98 Room Air 05/27/18 08:59 98.4 98.4 Lab Values Laboratory Tests Test 05/27/18 07:55 05/27/18 08:41 05/27/18 09:20 Urine Collection Type Void Urine Color Yellow Urine Clarity Clear Urine pH 5.0 Urine Specific [place] 1.020 Urine Protein Negative mg/dL (NEG-TRACE) Urine Glucose (UA) Negative mg/dL (NEG) Urine Ketones (Stick) Negative mg/dL (NEG) Urine Blood Negative (NEG) Urine Nitrite Negative (NEG) Urine Bilirubin Negative (NEG) Urine Urobilinogen Dipstick 0.2 mg/dL (0.2 mg/dL) Urine Leukocyte Esterase Negative (NEG) Urine RBC Occ /HPF (0-2) Urine WBC Occ /HPF (0-4) Urine Squamous Epithelial Cells Mod /LPF Urine Bacteria 0 /HPF (0-FEW) Urine Mucus Marked /LPF POC Urine HCG, Qualitative Hcg negative (Negative) Maternal Serum HCG Beta Subunit < 1 mIU/mL (0-5) EKG EKG [] Radiology/Procedures Radiology/Procedures [] Course & Med Decision Making Course & Med Decision Making Pertinent Labs and Imaging studies reviewed. (See chart for details) Patient is a 23-year-old female who presented to the emergency room with concerns of lower abdominal cramping after having a positive home urine test yesterday. VSS, patient noted to be hypertensive on arrival. Urine test in the ER was negative, the beta hCG was less than 1. This practitioner advised patient that the home test that was done yesterday was false positive. Patient advised to use a menstrual cycle tracker to keep track of her cycles and her symptoms. Patient verbalized an understanding of diagnosis, home care, follow-up, and return to ED instructions without any further questions or concerns. Dragon Disclaimer Dragon Disclaimer This electronic medical record was generated, in whole or in part, using a voice recognition dictation system. Departure Departure Impression: Primary Impression: Abdominal cramping in left lower quadrant Disposition: HOME, SELF-CARE Condition: STABLE Referrals: NO PCP (PCP) Patient Instructions: Abdominal Pain Additional Instructions: You may take Tylenol or ibuprofen for relief of cramping. Follow-up with primary care doctor in the next 1-2 days. Return to the emergency room if her symptoms worsen. SAHIL CORREA APRN May 27, 2018 08:59
[2018-05-27 09:12] LABS: BILIRUBIN,URINE NEGATIVE (NEG); CLARITY,URINE CLEAR; COLOR,URINE YELLOW; NITRITE,URINE NEGATIVE (NEG); PROTEIN,URINE NEGATIVE (NEG-TRACE); UROBILINOGEN,URINE 0.2 mg/dL (0.2 mg/dL)
[2018-05-27 09:30] LABS: BACTERIA,URINE 0 /HPF (0-FEW); RBC,URINE OCC /HPF (0-2); SQUAMOUS EPITHELIAL CELL,UR MOD /LPF; WBC,URINE OCC /HPF (0-4)
[2018-05-27 10:18] VITALS: BP 111/56
== END 2018-05-27 10:24 | disposition home or self-care (01) ==
LOC: ER 08:28
DX: R10.32 Left lower quadrant pain (principal); F41.9 Anxiety disorder, unspecified; Z90.49 Acquired absence of other specified parts of digestive tract; Z98.890 Other specified postprocedural states; Z32.02 Encounter for pregnancy test, result negative; Z88.0 Allergy status to penicillin; Z88.8 Allergy status to other drugs, medicaments and biological substances
CPT/HCPCS: 36415; 81001; 81025; 84702; 99284

== ENCOUNTER 2018-08-24 13:36 | Emergency (ER) | payer OTHER ==
[~2018-08-24] VITALS: Ht 172.7 cm; Wt 145.1 kg
[~2018-08-24 13:36] MED LIST changes: +HYDR-3164 PO; -HYDR-971 PO; +METR-84 PO; -METR500T8 PO
[2018-08-24 14:04] VITALS: BP 156/73
[2018-08-24] MEDS ORDERED: IV NORMAL SALINE 1000ML BAG 1,000 ML IV SCH (14:07)
[2018-08-24] MEDS ORDERED: ONDANSETRON PF 4 MG/2 ML VIAL. IV ONE (14:15)
[2018-08-24 14:16] LABS: BILIRUBIN,URINE NEGATIVE (NEG); CLARITY,URINE CLEAR; COLOR,URINE YELLOW; NITRITE,URINE NEGATIVE (NEG); PH,URINE 7.5; PROTEIN,URINE NEGATIVE (NEG-TRACE); UROBILINOGEN,URINE 0.2 mg/dL (0.2 mg/dL)
[2018-08-24 14:29] LABS: BACTERIA,URINE MANY /HPF (0-FEW); RBC,URINE 0 /HPF (0-2); SQUAMOUS EPITHELIAL CELL,UR MANY /LPF; WBC,URINE 0 /HPF (0-4)
[2018-08-24 14:32] LABS: BASO # 0.1 x10^3/uL (0.0-0.2); BASO % 1 % (0-3); EOS # 0.3 x10^3/uL (0.0-0.7); EOS % 4 % (0-3); HEMATOCRIT 41.9 % (36.0-47.0); LYMPH # 2.5 x10^3/uL (1.0-4.8); LYMPH % 27 % (24-48); MEAN CORPUSCULAR HEMOGLOBIN 32 pg (25-35); MEAN CORPUSCULAR HGB CONC 36 g/dL (31-37); MEAN CORPUSCULAR VOLUME 89 fL (79-100); MONO # 0.6 x10^3/uL (0.0-1.1); MONO % 7 % (0-9); NEUT # 5.7 x10^3uL (1.8-7.7); NEUT % 61 % (31-73); PLATELET COUNT 298 x10^3/uL (140-400); RED BLOOD COUNT 4.73 x10^6/uL (3.50-5.40); WHITE BLOOD COUNT 9.3 x10^3/uL (4.0-11.0)
[2018-08-24 14:46] LABS: CALCIUM 8.8 mg/dL (8.5-10.1); CREATININE 0.8 mg/dL (0.6-1.0); GFR 88.1; POTASSIUM 3.8 mmol/L (3.5-5.1)
[2018-08-24 14:54] LABS: ALBUMIN 3.4 g/dL (3.4-5.0); TOTAL BILIRUBIN 0.2 mg/dL (0.2-1.0); TOTAL PROTEIN 6.7 g/dL (6.4-8.2)
--- NOTE | 2018-08-24 15:05 | PHYS DOC ---
Past Medical History Past Medical History: Anxiety Additional Past Medical Histor: hernia, obesity,dental pain Past Surgical History: Cholecystectomy, Tonsillectomy Additional Past Surgical Histo: HERNIA REPAIR BELLY BUTTON Alcohol Use: None Drug Use: None Adult General Chief Complaint Chief Complaint: ABDOMINAL PAIN [facility] HPI Patient is a 23 year old female who presents with complaint of right-sided abdominal pain with nausea, vomiting and diarrhea. Patient states that symptoms started about a week ago and have been intermittent since. She states that no specific foods seem to make symptoms worse in any other food. She states that when she eats or drinks, she gets nauseated and has had several episodes of vomiting. She denies any fever, chest pain or shortness of breath. Patient does indicate that she had a cholecystectomy in the past. Patient does not believe that she has been running a fever. She rates her pain to be a 6 out of 10. Patient states that nothing is improving her symptoms. Review of Systems Review of Systems Constitutional: Denies fever or chills [] Respiratory: Denies cough or shortness of breath [] Cardiovascular: No additional information not addressed in HPI [] GI: Complains of right-sided abdominal pain with nausea, vomiting and diarrhea [ ] Integument: Denies rash or skin lesions [] All other systems were reviewed and found to be within normal limits, except as documented in this note. Current Medications Current Medications Current Medications Medications (Trade) Dose Ordered Sig/Darnell Start Time Stop Time Status Last Admin Dose Admin Info (CONTRAST GIVEN -- Rx MONITORING) 1 each PRN DAILY PRN 08/24/18 15:15 08/26/18 15:14 Iohexol (Omnipaque 300 Mg/ml) 75 ml 1X ONCE 08/24/18 15:15 08/24/18 15:16 DC Ondansetron HCl (Zofran) 4 mg 1X ONCE 08/24/18 14:15 08/24/18 14:16 DC Sodium Chloride 1,000 ml @ 1,000 mls/hr Q1H 08/24/18 14:07 08/24/18 15:06 DC 08/24/18 14:07 1,000 MLS/HR Allergies Allergies Allergies Coded Allergies Type Severity Reaction Last Updated Verified Penicillins Allergy Intermediate 04/23/17 Yes cefprozil Allergy Intermediate 04/23/17 Yes Physical Exam Physical Exam Constitutional: Well developed, well nourished, no acute distress, non-toxic appearance. [] HENT: Normocephalic, atraumatic, bilateral external ears normal, oropharynx moist, no oral exudates, nose normal. [] Eyes: PERRLA, EOMI, conjunctiva normal, no discharge. [] Neck: Normal range of motion, no tenderness, supple, no stridor. [] Cardiovascular:Heart rate regular rhythm [] Lungs & Thorax: Bilateral breath sounds clear to auscultation [] Abdomen: Bowel sounds normal, soft, with tenderness to palpation in the right mid to lower abdomen. [] Skin: Warm, dry, no erythema, no rash. [] Extremities: No tenderness, no cyanosis, no clubbing, ROM intact, no edema. [] Neurologic: Alert and oriented X 3, normal motor function, normal sensory function, no focal deficits noted. [] Current Patient Data Vital Signs Vital Signs Date Time Temp Pulse Resp B/P (MAP) Pulse Ox O2 Delivery O2 Flow Rate FiO2 08/24/18 14:04 98.6 117 15 156/73 (100) 98 Room Air 98.6 Lab Values Laboratory Tests Test 08/24/18 13:53 08/24/18 13:57 08/24/18 14:23 Urine Collection Type Unknown Urine Color Yellow Urine Clarity Clear Urine pH 7.5 Urine Specific [place] 1.025 Urine Protein Negative mg/dL (NEG-TRACE) Urine Glucose (UA) Negative mg/dL (NEG) Urine Ketones (Stick) Negative mg/dL (NEG) Urine Blood Negative (NEG) Urine Nitrite Negative (NEG) Urine Bilirubin Negative (NEG) Urine Urobilinogen Dipstick 0.2 mg/dL (0.2 mg/dL) Urine Leukocyte Esterase Negative (NEG) Urine RBC 0 /HPF (0-2) Urine WBC 0 /HPF (0-4) Urine Squamous Epithelial Cells Many /LPF Urine Bacteria Many /HPF (0-FEW) Urine Mucus Marked /LPF POC Urine HCG, Qualitative Hcg negative (Negative) White Blood Count 9.3 x10^3/uL (4.0-11.0) Red Blood Count 4.73 x10^6/uL (3.50-5.40) Hemoglobin 15.0 g/dL (12.0-15.5) Hematocrit 41.9 % (36.0-47.0) Mean Corpuscular Volume 89 fL (79-100) Mean Corpuscular Hemoglobin 32 pg (25-35) Mean Corpuscular Hemoglobin Concent 36 g/dL (31-37) Red Cell Distribution Width 13.0 % (11.5-14.5) Platelet Count 298 x10^3/uL (140-400) Neutrophils (%) (Auto) 61 % (31-73) Lymphocytes (%) (Auto) 27 % (24-48) Monocytes (%) (Auto) 7 % (0-9) Eosinophils (%) (Auto) 4 % (0-3) H Basophils (%) (Auto) 1 % (0-3) Neutrophils # (Auto) 5.7 x10^3uL (1.8-7.7) Lymphocytes # (Auto) 2.5 x10^3/uL (1.0-4.8) Monocytes # (Auto) 0.6 x10^3/uL (0.0-1.1) Eosinophils # (Auto) 0.3 x10^3/uL (0.0-0.7) Basophils # (Auto) 0.1 x10^3/uL (0.0-0.2) Sodium Level 143 mmol/L (136-145) Potassium Level 3.8 mmol/L (3.5-5.1) Chloride Level 105 mmol/L (98-107) Carbon Dioxide Level 30 mmol/L (21-32) Anion Gap 8 (6-14) Blood Urea Nitrogen 6 mg/dL (7-20) L Creatinine 0.8 mg/dL (0.6-1.0) Estimated GFR (Cockcroft-Gault) 88.1 BUN/Creatinine Ratio 8 (6-20) Glucose Level 97 mg/dL (70-99) Calcium Level 8.8 mg/dL (8.5-10.1) Total Bilirubin 0.2 mg/dL (0.2-1.0) Aspartate Amino Transferase (AST) 29 U/L (15-37) Alanine Aminotransferase (ALT) 52 U/L (14-59) Alkaline Phosphatase 54 U/L (46-116) Total Protein 6.7 g/dL (6.4-8.2) Albumin 3.4 g/dL (3.4-5.0) Albumin/Globulin Ratio 1.0 (1.0-1.7) Laboratory Tests 08/24/18 14:23 Laboratory Tests 08/24/18 14:23 EKG EKG [] Radiology/Procedures Radiology/Procedures [] Impressions: A CT scan of the abdomen and pelvis with contrast has been ordered; however, patient has refused study. She states that she does not like radiological studies. I informed patient that without this study, I would not be able to adequately determine the cause of her abdominal pain. Patient acknowledges understanding and is requesting discharge home. She states that she is currently pain-free. Patient instructed to return to the emergency room if she had any acute worsening of symptoms or if she developed fever. Course & Med Decision Making Course & Med Decision Making Pertinent Labs and Imaging studies reviewed. (See chart for details) [] Dragon Disclaimer Dragon Disclaimer This electronic medical record was generated, in whole or in part, using a voice recognition dictation system. Departure Departure Impression: Primary Impression: Right sided abdominal pain Disposition: HOME, SELF-CARE Condition: STABLE Referrals: NO PCP (PCP) Patient Instructions: Abdominal Pain RAUL LEAHY Jr. DO Aug 24, 2018 15:05
[2018-08-24] MEDS ORDERED: CONTRAST GIVEN. MC PRN (15:15)
[2018-08-24] MEDS ORDERED: IOHEXOL 300 MG/ML 100ML VIAL. IV ONE (15:15)
== END 2018-08-24 15:50 | disposition home or self-care (01) ==
LOC: ER 13:36
DX: R10.31 Right lower quadrant pain (principal); R11.2 Nausea with vomiting, unspecified; R19.7 Diarrhea, unspecified; Z90.49 Acquired absence of other specified parts of digestive tract; Z98.890 Other specified postprocedural states; Z88.0 Allergy status to penicillin; Z88.8 Allergy status to other drugs, medicaments and biological substances
CPT/HCPCS: 36415; 80053; 81001; 81025; 85025; 87086; 96360; 99283; J7030

== ENCOUNTER 2018-10-22 18:52 | Emergency (ER) | payer OTHER ==
[~2018-10-22] VITALS: Ht 172.7 cm; Wt 145.1 kg
[~2018-10-22 18:52] MED LIST changes: -HYDR-2758 PO; +HYDR-2761 PO
[2018-10-22 19:51] LABS: BILIRUBIN,URINE NEGATIVE (NEG); CLARITY,URINE CLEAR; COLOR,URINE YELLOW; NITRITE,URINE NEGATIVE (NEG); PROTEIN,URINE NEGATIVE (NEG-TRACE); UROBILINOGEN,URINE 0.2 mg/dL (0.2 mg/dL)
[2018-10-22 19:57] LABS: BACTERIA,URINE FEW /HPF (0-FEW); RBC,URINE RARE /HPF (0-2); SQUAMOUS EPITHELIAL CELL,UR MOD /LPF; WBC,URINE RARE /HPF (0-4)
[2018-10-22 20:30] VITALS: BP 150/78
[2018-10-22 21:01] LABS: BASO # 0.1 x10^3/uL (0.0-0.2); BASO % 1 % (0-3); EOS # 0.2 x10^3/uL (0.0-0.7); EOS % 3 % (0-3); HEMATOCRIT 41.9 % (36.0-47.0); HEMOGLOBIN 15.1 g/dL (12.0-15.5); LYMPH # 2.9 x10^3/uL (1.0-4.8); LYMPH % 30 % (24-48); MEAN CORPUSCULAR HEMOGLOBIN 32 pg (25-35); MEAN CORPUSCULAR HGB CONC 36 g/dL (31-37); MEAN CORPUSCULAR VOLUME 89 fL (79-100); MONO # 0.6 x10^3/uL (0.0-1.1); MONO % 6 % (0-9); NEUT # 5.8 x10^3uL (1.8-7.7); NEUT % 60 % (31-73); PLATELET COUNT 346 x10^3/uL (140-400); RED BLOOD COUNT 4.71 x10^6/uL (3.50-5.40); RED CELL DISTRIBUTION WIDTH 12.9 % (11.5-14.5); WHITE BLOOD COUNT 9.6 x10^3/uL (4.0-11.0)
[2018-10-22 21:16] LABS: CREATININE 0.9 mg/dL (0.6-1.0); GFR 76.9; POTASSIUM 3.8 mmol/L (3.5-5.1)
[2018-10-22 21:22] LABS: ALBUMIN 3.7 g/dL (3.4-5.0); ALBUMIN/GLOBULIN RATIO 1.1 (1.0-1.7); TOTAL BILIRUBIN 0.3 mg/dL (0.2-1.0); TOTAL PROTEIN 7.2 g/dL (6.4-8.2)
--- NOTE | 2018-10-22 21:28 | RAD ---
Obstetrical ultrasound HISTORY: Cramping, . Positive test. FINDINGS: Endovaginal scanning is performed. Exam performed without the benefit of real-time observation. Uterus measures 11.4 cm longitudinal by 5.8 cm AP by 6.7 cm wide. Endometrium measures 20 mm, and mildly hyperechoic. No evidence of gestational sac, yolk sac, pole or cardiac activity at this time. Left ovary measures 3.9 cm with small follicular cysts measuring up to 18 mm. Positive blood flow to left ovary. Maternal right ovary measures 2.4 cm with positive blood flow. No free fluid is seen. Nabothian cyst identified at the cervix. IMPRESSION: Endometrial thickening. No evidence of gestational sac or intrauterine at this time, but that could be due to early normal gestation. Recommend correlation with quantitative beta hCG values and close short-term follow-up ultrasound. Electronically signed by: Martínez Zarco MD (10/22/2018 9:24 PM) [id number]
--- NOTE | 2018-10-22 21:46 | PHYS DOC ---
Past Medical History Past Medical History: Anxiety Additional Past Medical Histor: hernia, obesity,dental pain Past Surgical History: Cholecystectomy, Tonsillectomy Additional Past Surgical Histo: HERNIA, R EYE Alcohol Use: None Drug Use: None Adult General Chief Complaint Chief Complaint: ABDOMINAL PAIN IN [facility] HPI Patient is a 23 year old [f__sex] who presents with [] Review of Systems Review of Systems Constitutional: Denies fever or chills [] Eyes: Denies change in visual acuity, redness, or eye pain [] HENT: Denies nasal congestion or sore throat [] Respiratory: Denies cough or shortness of breath [] Cardiovascular: No additional information not addressed in HPI [] GI: Denies abdominal pain, nausea, vomiting, bloody stools or diarrhea [] : Denies dysuria or hematuria [] Musculoskeletal: Denies back pain or joint pain [] Integument: Denies rash or skin lesions [] Neurologic: Denies headache, focal weakness or sensory changes [] Endocrine: Denies polyuria or polydipsia [] All other systems were reviewed and found to be within normal limits, except as documented in this note. Allergies Allergies Allergies Coded Allergies Type Severity Reaction Last Updated Verified Penicillins Allergy Intermediate 04/23/17 Yes cefprozil Allergy Intermediate 04/23/17 Yes Physical Exam Physical Exam Constitutional: Well developed, well nourished, no acute distress, non-toxic appearance. [] HENT: Normocephalic, atraumatic, bilateral external ears normal, oropharynx moist, no oral exudates, nose normal. [] Eyes: PERRLA, EOMI, conjunctiva normal, no discharge. [] Neck: Normal range of motion, no tenderness, supple, no stridor. [] Cardiovascular:Heart rate regular rhythm, no murmur [] Lungs & Thorax: Bilateral breath sounds clear to auscultation [] Abdomen: Bowel sounds normal, soft, no tenderness, no masses, no pulsatile masses. [] Skin: Warm, dry, no erythema, no rash. [] Back: No tenderness, no CVA tenderness. [] Extremities: No tenderness, no cyanosis, no clubbing, ROM intact, no edema. [] Neurologic: Alert and oriented X 3, normal motor function, normal sensory function, no focal deficits noted. [] Psychologic: Affect normal, judgement normal, mood normal. [] Current Patient Data Vital Signs Vital Signs Date Time Temp Pulse Resp B/P (MAP) Pulse Ox O2 Delivery O2 Flow Rate FiO2 10/22/18 20:30 110 18 150/78 (102) 99 Room Air 10/22/18 18:52 97.8 97.8 Lab Values Laboratory Tests Test 10/22/18 19:00 10/22/18 19:13 10/22/18 20:40 Urine Collection Type Unknown Urine Color Yellow Urine Clarity Clear Urine pH 5.0 Urine Specific [place] >=1.030 Urine Protein Negative mg/dL (NEG-TRACE) Urine Glucose (UA) Negative mg/dL (NEG) Urine Ketones (Stick) Negative mg/dL (NEG) Urine Blood Negative (NEG) Urine Nitrite Negative (NEG) Urine Bilirubin Negative (NEG) Urine Urobilinogen Dipstick 0.2 mg/dL (0.2 mg/dL) Urine Leukocyte Esterase Negative (NEG) Urine RBC Rare /HPF (0-2) Urine WBC Rare /HPF (0-4) Urine Squamous Epithelial Cells Mod /LPF Urine Bacteria Few /HPF (0-FEW) Urine Mucus Marked /LPF POC Urine HCG, Qualitative Hcg positive (Negative) White Blood Count 9.6 x10^3/uL (4.0-11.0) Red Blood Count 4.71 x10^6/uL (3.50-5.40) Hemoglobin 15.1 g/dL (12.0-15.5) Hematocrit 41.9 % (36.0-47.0) Mean Corpuscular Volume 89 fL (79-100) Mean Corpuscular Hemoglobin 32 pg (25-35) Mean Corpuscular Hemoglobin Concent 36 g/dL (31-37) Red Cell Distribution Width 12.9 % (11.5-14.5) Platelet Count 346 x10^3/uL (140-400) Neutrophils (%) (Auto) 60 % (31-73) Lymphocytes (%) (Auto) 30 % (24-48) Monocytes (%) (Auto) 6 % (0-9) Eosinophils (%) (Auto) 3 % (0-3) Basophils (%) (Auto) 1 % (0-3) Neutrophils # (Auto) 5.8 x10^3uL (1.8-7.7) Lymphocytes # (Auto) 2.9 x10^3/uL (1.0-4.8) Monocytes # (Auto) 0.6 x10^3/uL (0.0-1.1) Eosinophils # (Auto) 0.2 x10^3/uL (0.0-0.7) Basophils # (Auto) 0.1 x10^3/uL (0.0-0.2) Maternal Serum HCG Beta Subunit 378 mIU/mL (0-5) H Sodium Level 136 mmol/L (136-145) Potassium Level 3.8 mmol/L (3.5-5.1) Chloride Level 103 mmol/L (98-107) Carbon Dioxide Level 26 mmol/L (21-32) Anion Gap 7 (6-14) Blood Urea Nitrogen 7 mg/dL (7-20) Creatinine 0.9 mg/dL (0.6-1.0) Estimated GFR (Cockcroft-Gault) 76.9 BUN/Creatinine Ratio 8 (6-20) Glucose Level 83 mg/dL (70-99) Calcium Level 9.0 mg/dL (8.5-10.1) Total Bilirubin 0.3 mg/dL (0.2-1.0) Aspartate Amino Transferase (AST) 18 U/L (15-37) Alanine Aminotransferase (ALT) 33 U/L (14-59) Alkaline Phosphatase 61 U/L (46-116) Total Protein 7.2 g/dL (6.4-8.2) Albumin 3.7 g/dL (3.4-5.0) Albumin/Globulin Ratio 1.1 (1.0-1.7) Laboratory Tests 10/22/18 20:40 Laboratory Tests 10/22/18 20:40 EKG EKG [] Radiology/Procedures Radiology/Procedures [] Course & Med Decision Making Course & Med Decision Making Pertinent Labs and Imaging studies reviewed. (See chart for details) [] Dragon Disclaimer Dragon Disclaimer This electronic medical record was generated, in whole or in part, using a voice recognition dictation system. Departure Departure Impression: Primary Impression: Additional Impression: Abdominal pain during Disposition: 01 HOME, SELF-CARE Condition: STABLE Referrals: NO PCP (PCP) MADI DE LA TORRE Jr, MD Patient Instructions: ABCs of Additional Instructions: Follow-up with your capsule maker for further evaluation and management your . If worsening return to the emergency department. Problem Qualifiers YANI [place] APRN Oct 22, 2018 21:46
== END 2018-10-22 21:50 | disposition home or self-care (01) ==
LOC: ER 18:52
DX: O34.81 Maternal care for other abnormalities of pelvic organs, first trimester (principal); N83.02 Follicular cyst of left ovary; O99.341 Other mental disorders complicating pregnancy, first trimester; O99.211 Obesity complicating pregnancy, first trimester; R10.9 Unspecified abdominal pain; F41.9 Anxiety disorder, unspecified; Z90.49 Acquired absence of other specified parts of digestive tract; Z90.89 Acquired absence of other organs; Z88.0 Allergy status to penicillin; Z88.1 Allergy status to other antibiotic agents; Z3A.01 Less than 8 weeks gestation of pregnancy
CPT/HCPCS: 36415; 76801; 80053; 81001; 81025; 84702; 85025; 99284-25

== ENCOUNTER 2018-12-03 18:43 | Emergency (ER) | payer OTHER ==
[~2018-12-03] VITALS: Ht 172.7 cm; Wt 149.7 kg
[~2018-12-03 18:43] MED LIST changes: +METR-34 PO; -METR-84 PO
[2018-12-03 19:09] VITALS: BP 143/79
[2018-12-03 19:31] LABS: BILIRUBIN,URINE NEGATIVE (NEG); CLARITY,URINE CLEAR; COLOR,URINE YELLOW; NITRITE,URINE NEGATIVE (NEG); PH,URINE 5.5; PROTEIN,URINE 100 mg/dL (NEG-TRACE); UROBILINOGEN,URINE 0.2 mg/dL (0.2 mg/dL)
[2018-12-03 19:37] LABS: BACTERIA,URINE MANY /HPF (0-FEW); RBC,URINE OCC /HPF (0-2); SQUAMOUS EPITHELIAL CELL,UR MANY /LPF; WBC,URINE OCC /HPF (0-4)
[2018-12-03 19:39] LABS: HYALINE CASTS, URINE OCCASIONAL /HPF
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
--- NOTE | 2018-12-03 20:31 | PHYS DOC ---
Past Medical History Past Medical History: Anxiety Additional Past Medical Histor: hernia, obesity,dental pain Past Surgical History: Cholecystectomy, Tonsillectomy Additional Past Surgical Histo: HERNIA, R EYE Alcohol Use: None Drug Use: None Adult General Chief Complaint Chief Complaint: ABDOMINAL PAIN IN HPI HPI Patient is a 23 year old female who presents with abdominal pain during . She denies vaginal discharge or bleeding. Her OB is Dr. Pathak. She did not call him about this pain. She denies fever, nausea, vomiting, diarrhea or constipation. She is 11 weeks 5 days. Review of Systems Review of Systems Constitutional: Denies fever or chills [] Eyes: Denies change in visual acuity, redness, or eye pain [] HENT: Denies nasal congestion or sore throat [] Respiratory: Denies cough or shortness of breath [] Cardiovascular: No additional information not addressed in HPI [] GI: See HPI : See HPI Musculoskeletal: Denies back pain or joint pain [] Integument: Denies rash or skin lesions [] Neurologic: Denies headache, focal weakness or sensory changes [] Endocrine: Denies polyuria or polydipsia [] All other systems were reviewed and found to be within normal limits, except as documented in this note. Allergies Allergies Allergies Coded Allergies Type Severity Reaction Last Updated Verified Penicillins Allergy Intermediate 04/23/17 Yes cefprozil Allergy Intermediate 04/23/17 Yes Physical Exam Physical Exam Constitutional: Well developed, well nourished, no acute distress, non-toxic appearance. [] Cardiovascular:Heart rate regular rhythm, no murmur [] Lungs & Thorax: Bilateral breath sounds clear to auscultation [] Abdomen: Bowel sounds normal, soft, mild suprapubic tenderness, no masses, no pulsatile masses. [] Skin: Warm, dry, no erythema, no rash. [] Back: No tenderness, no CVA tenderness. [] Extremities: No tenderness, no cyanosis, no clubbing, ROM intact, no edema. [] Neurologic: Alert and oriented X 3, normal motor function, normal sensory function, no focal deficits noted. [] Psychologic: Affect normal, judgement normal, mood normal. [] Current Patient Data Vital Signs Lab Values Laboratory Tests Test 12/03/18 19:00 12/03/18 19:30 Urine Collection Type Unknown Urine Color Yellow Urine Clarity Clear Urine pH 5.5 Urine Specific [place] 1.025 Urine Protein 100 mg/dL (NEG-TRACE) Urine Glucose (UA) Negative mg/dL (NEG) Urine Ketones (Stick) Negative mg/dL (NEG) Urine Blood Negative (NEG) Urine Nitrite Negative (NEG) Urine Bilirubin Negative (NEG) Urine Urobilinogen Dipstick 0.2 mg/dL (0.2 mg/dL) Urine Leukocyte Esterase Negative (NEG) Urine RBC Occ /HPF (0-2) Urine WBC Occ /HPF (0-4) Urine Squamous Epithelial Cells Many /LPF Urine Bacteria Many /HPF (0-FEW) Urine Hyaline Casts Occasional /HPF Urine Mucus Marked /LPF Maternal Serum HCG Beta Subunit 68826 mIU/mL (0-5) H Microbiology 12/03/18 Urine Culture - Final, Complete 12/03/18 Urine Culture Result 1 (ISIDRO) - Final, Complete EKG EKG [] Radiology/Procedures Radiology/Procedures [] Course & Med Decision Making Course & Med Decision Making Pertinent Labs and Imaging studies reviewed. (See chart for details) []There was no acute cause found for your pain. Follow up with Dr. Pathak for further investigation or return to the ED is worsening. Dragon Disclaimer Dragon Disclaimer This electronic medical record was generated, in whole or in part, using a voice recognition dictation system. Departure Departure Impression: Primary Impression: Abdominal pain during Disposition: 01 HOME, SELF-CARE Condition: STABLE Referrals: NO PCP (PCP) Additional Instructions: Follow-up with Dr. Pathak for continued management your . Your urine and ultrasound were negative for any acute findings. YANI [place] APRN Dec 03, 2018 20:31
== END 2018-12-03 20:37 | disposition home or self-care (01) ==
LOC: ER 18:43
DX: O26.891 Other specified pregnancy related conditions, first trimester (principal); R10.9 Unspecified abdominal pain; Z3A.11 11 weeks gestation of pregnancy; Z98.890 Other specified postprocedural states; Z90.49 Acquired absence of other specified parts of digestive tract; Z88.0 Allergy status to penicillin; Z88.8 Allergy status to other drugs, medicaments and biological substances
CPT/HCPCS: 36415; 76801; 81001; 84702; 87086; 99284-25

== ENCOUNTER 2018-12-06 12:39 | Emergency (ER) | payer OTHER ==
[~2018-12-06] VITALS: Ht 172.7 cm; Wt 149.7 kg
[2018-12-06 12:59] LABS: BILIRUBIN,URINE NEGATIVE (NEG); CLARITY,URINE CLEAR; COLOR,URINE YELLOW; NITRITE,URINE NEGATIVE (NEG); PH,URINE 5.5; PROTEIN,URINE NEGATIVE (NEG-TRACE); UROBILINOGEN,URINE 0.2 mg/dL (0.2 mg/dL)
[2018-12-06 13:06] LABS: SQUAMOUS EPITHELIAL CELL,UR MOD /LPF
[2018-12-06 13:07] LABS: HYALINE CASTS, URINE MANY /HPF
[2018-12-06 13:08] LABS: BACTERIA,URINE 0 /HPF (0-FEW)
[2018-12-06 13:09] LABS: AMORPHOUS SEDIMENT,UR PRESENT /HPF
[2018-12-06 13:44] LABS: BASO # 0.1 x10^3/uL (0.0-0.2); BASO % 1 % (0-3); EOS # 0.2 x10^3/uL (0.0-0.7); EOS % 1 % (0-3); HEMOGLOBIN 13.5 g/dL (12.0-15.5); LYMPH # 2.1 x10^3/uL (1.0-4.8); LYMPH % 17 % (24-48); MEAN CORPUSCULAR HEMOGLOBIN 30 pg (25-35); MEAN CORPUSCULAR HGB CONC 34 g/dL (31-37); MEAN CORPUSCULAR VOLUME 89 fL (79-100); MONO # 0.8 x10^3/uL (0.0-1.1); MONO % 6 % (0-9); NEUT # 9.5 x10^3uL (1.8-7.7); NEUT % 76 % (31-73); PLATELET COUNT 323 x10^3/uL (140-400); RED BLOOD COUNT 4.49 x10^6/uL (3.50-5.40); RED CELL DISTRIBUTION WIDTH 12.6 % (11.5-14.5); WHITE BLOOD COUNT 12.6 x10^3/uL (4.0-11.0)
[2018-12-06 13:57] LABS: CREATININE 1.1 mg/dL (0.6-1.0); POTASSIUM 3.5 mmol/L (3.5-5.1)
[2018-12-06] MEDS ORDERED: HYDROcodone/APAP 5/325MG 1 TAB TABLET PO ONE (14:00)
[2018-12-06 14:03] LABS: ALBUMIN 3.2 g/dL (3.4-5.0); ALBUMIN/GLOBULIN RATIO 0.8 (1.0-1.7); TOTAL BILIRUBIN 0.2 mg/dL (0.2-1.0); TOTAL PROTEIN 7.2 g/dL (6.4-8.2)
--- NOTE | 2018-12-06 14:41 | RAD ---
Examination: Obstetric ultrasound less than 14 weeks HISTORY: History of left flank pain. COMPARISON: 12/03/2018 FINDINGS: The uterus measures 13.1 x 8.5 x 9.3 cm. The cervical length measures 3.8 cm. The right ovary measures 3.1 x 1.6 x 3.8 cm. The left ovary measures 3.2 x 1.7 x 1.8 cm Blood flow identified in the right and left ovaries. Single living intrauterine identified with heart rate of 171 bpm. The crown-rump length measures 4.5 cm corresponding to 11 weeks and 2 days. LMP 09/10/2018. Clinical age by LMP 12 weeks and 3 days with estimated delivery by LMP 06/17/2019. Estimated date of delivery by ultrasound 06/25/2019. IMPRESSION: Single living intrauterine with heart rate of 171 bpm. Electronically signed by: Gregorio Carney MD (12/06/2018 2:38 PM) [facility]
--- NOTE | 2018-12-06 14:47 | PHYS DOC ---
Past Medical History Past Medical History: No Pertinent History, Anxiety, Kidney Stone Additional Past Medical Histor: hernia, obesity,dental pain Past Surgical History: Cholecystectomy, Tonsillectomy Additional Past Surgical Histo: HERNIA, R EYE Alcohol Use: None Drug Use: None Adult General Chief Complaint Chief Complaint: FLANK PAIN HPI HPI Patient is a 23 year old female who presents with left flank pain in . She has been seen here for similar complaints. She denies fever, nausea or vomiting. She did not call her OB. Review of Systems Review of Systems Constitutional: Denies fever or chills [] Eyes: Denies change in visual acuity, redness, or eye pain [] HENT: Denies nasal congestion or sore throat [] Respiratory: Denies cough or shortness of breath [] Cardiovascular: No additional information not addressed in HPI [] GI: SEE HPI Musculoskeletal: Denies back pain or joint pain [] Integument: Denies rash or skin lesions [] Neurologic: Denies headache, focal weakness or sensory changes [] Endocrine: Denies polyuria or polydipsia [] All other systems were reviewed and found to be within normal limits, except as documented in this note. Current Medications Current Medications Current Medications Medications (Trade) Dose Ordered Sig/Darnell Start Time Stop Time Status Last Admin Dose Admin Acetaminophen/ Hydrocodone Bitart (Lortab 5/325) 1 tab 1X ONCE 12/06/18 14:00 12/06/18 14:01 DC 12/06/18 13:59 1 TAB Allergies Allergies Allergies Coded Allergies Type Severity Reaction Last Updated Verified Penicillins Allergy Intermediate 04/23/17 Yes cefprozil Allergy Intermediate 04/23/17 Yes Physical Exam Physical Exam Constitutional: Well developed, well nourished, no acute distress, non-toxic appearance. [] HENT: Normocephalic, atraumatic, bilateral external ears normal, oropharynx [address], no oral exudates, nose normal. [] Eyes: PERRLA, EOMI, conjunctiva normal, no discharge. [] Neck: Normal range of motion, no tenderness, supple, no stridor. [] Cardiovascular:Heart rate regular rhythm, no murmur [] Lungs & Thorax: Bilateral breath sounds clear to auscultation [] Abdomen: Bowel sounds normal, soft, left flank tenderness, no masses, no pulsatile masses. [] Skin: Warm, dry, no erythema, no rash. [] Back: No tenderness, no CVA tenderness. [] Extremities: No tenderness, no cyanosis, no clubbing, ROM intact, no edema. [] Neurologic: Alert and oriented X 3, normal motor function, normal sensory function, no focal deficits noted. [] Psychologic: Affect normal, judgement normal, mood normal. [] Current Patient Data Vital Signs Lab Values Laboratory Tests Test 12/06/18 12:50 12/06/18 12:52 12/06/18 13:15 Urine Collection Type Unknown Urine Color Yellow Urine Clarity Clear Urine pH 5.5 Urine Specific [place] >=1.030 Urine Protein Negative mg/dL (NEG-TRACE) Urine Glucose (UA) Negative mg/dL (NEG) Urine Ketones (Stick) Negative mg/dL (NEG) Urine Blood Negative (NEG) Urine Nitrite Negative (NEG) Urine Bilirubin Negative (NEG) Urine Urobilinogen Dipstick 0.2 mg/dL (0.2 mg/dL) Urine Leukocyte Esterase Negative (NEG) Urine RBC 3-5 /HPF (0-2) Urine WBC 1-4 /HPF (0-4) Urine Squamous Epithelial Cells Mod /LPF Urine Amorphous Sediment Present /HPF Urine Bacteria 0 /HPF (0-FEW) Urine Hyaline Casts Many /HPF Urine Mucus Mod /LPF Urine Opiates Screen Neg (NEG) Urine Methadone Screen Neg (NEG) Urine Barbiturates Neg (NEG) Urine Phencyclidine Screen Neg (NEG) Urine Amphetamine/Methamphetamine Neg (NEG) Urine Benzodiazepines Screen Neg (NEG) Urine Cocaine Screen Neg (NEG) Urine Cannabinoids Screen Neg (NEG) Urine Ethyl Alcohol Neg (NEG) POC Urine HCG, Qualitative Hcg positive (Negative) White Blood Count 12.6 x10^3/uL (4.0-11.0) H Red Blood Count 4.49 x10^6/uL (3.50-5.40) Hemoglobin 13.5 g/dL (12.0-15.5) Hematocrit 40.0 % (36.0-47.0) Mean Corpuscular Volume 89 fL (79-100) Mean Corpuscular Hemoglobin 30 pg (25-35) Mean Corpuscular Hemoglobin Concent 34 g/dL (31-37) Red Cell Distribution Width 12.6 % (11.5-14.5) Platelet Count 323 x10^3/uL (140-400) Neutrophils (%) (Auto) 76 % (31-73) H Lymphocytes (%) (Auto) 17 % (24-48) L Monocytes (%) (Auto) 6 % (0-9) Eosinophils (%) (Auto) 1 % (0-3) Basophils (%) (Auto) 1 % (0-3) Neutrophils # (Auto) 9.5 x10^3uL (1.8-7.7) H Lymphocytes # (Auto) 2.1 x10^3/uL (1.0-4.8) Monocytes # (Auto) 0.8 x10^3/uL (0.0-1.1) Eosinophils # (Auto) 0.2 x10^3/uL (0.0-0.7) Basophils # (Auto) 0.1 x10^3/uL (0.0-0.2) Maternal Serum HCG Beta Subunit 87920 mIU/mL (0-5) H Sodium Level 137 mmol/L (136-145) Potassium Level 3.5 mmol/L (3.5-5.1) Chloride Level 101 mmol/L (98-107) Carbon Dioxide Level 25 mmol/L (21-32) Anion Gap 11 (6-14) Blood Urea Nitrogen 9 mg/dL (7-20) Creatinine 1.1 mg/dL (0.6-1.0) H Estimated GFR (Cockcroft-Gault) 61.0 BUN/Creatinine Ratio 8 (6-20) Glucose Level 82 mg/dL (70-99) Calcium Level 9.0 mg/dL (8.5-10.1) Total Bilirubin 0.2 mg/dL (0.2-1.0) Aspartate Amino Transferase (AST) 19 U/L (15-37) Alanine Aminotransferase (ALT) 23 U/L (14-59) Alkaline Phosphatase 49 U/L (46-116) Total Protein 7.2 g/dL (6.4-8.2) Albumin 3.2 g/dL (3.4-5.0) L Albumin/Globulin Ratio 0.8 (1.0-1.7) L Laboratory Tests 12/06/18 13:15 Laboratory Tests 12/06/18 13:15 EKG EKG [] Radiology/Procedures Radiology/Procedures []PATIENT: ERICK CASTANONCOUNT: [id number]#: [id number] : 1995 LOCATION: ER AGE: 23 SEX: F EXAM STATUS: REG ER ORD. PHYSICIAN: YANI [place] APRN REASON: left flank pain PROCEDURE: OB < 14 WKS Examination: Obstetric ultrasound less than 14 weeks HISTORY: History of left flank pain. COMPARISON: 12/03/2018 FINDINGS: The uterus measures 13.1 x 8.5 x 9.3 cm. The cervical length measures 3.8 cm. The right ovary measures 3.1 x 1.6 x 3.8 cm. The left ovary measures 3.2 x 1.7 x 1.8 cm Blood flow identified in the right and left ovaries. Single living intrauterine identified with heart rate of 171 bpm. The crown-rump length measures 4.5 cm corresponding to 11 weeks and 2 days. LMP 09/10/2018. Clinical age by LMP 12 weeks and 3 days with estimated delivery by LMP 06/17/2019. Estimated date of delivery by ultrasound 06/25/2019. IMPRESSION: Single living intrauterine with heart rate of 171 bpm. Electronically signed by: Gregorio Carney MD (12/06/2018 2:38 PM) [facility] DICTATED and SIGNED BY: GREGORIO CARNEY MD DATE: 12/06/18 1434 Course & Med Decision Making Course & Med Decision Making Pertinent Labs and Imaging studies reviewed. (See chart for details) []No blood noted to urine to indicate a stone. No CT due to . Dragon Disclaimer Dragon Disclaimer This electronic medical record was generated, in whole or in part, using a voice recognition dictation system. Departure Departure Impression: Primary Impression: Abdominal pain during Disposition: 01 HOME, SELF-CARE Condition: STABLE Referrals: NO PCP (PCP) Patient Instructions: Abdominal Pain During Additional Instructions: There is no sign of kidney stone in your urology for ultrasound. A beta Quant was taken for you so that your enterprise systems administrator will have access for serial labs. Follow-up with your OB at your scheduled appointment or return to the emergency department if worsening. YANI [place] APRN Dec 06, 2018 14:47
[2018-12-06 15:03] LABS: AMPHETAMINE/METHAMPHETAMINE NEG (NEG); BARBITURATES NEG (NEG); BENZODIAZEPINES NEG (NEG); CANNABINOIDS NEG (NEG); COCAINE NEG (NEG); METHADONE NEG (NEG); OPIATES NEG (NEG); PHENCYCLIDINE NEG (NEG)
[2018-12-06 15:31] VITALS: BP 138/62
== END 2018-12-06 15:48 | disposition home or self-care (01) ==
LOC: ER 12:39
DX: O26.891 Other specified pregnancy related conditions, first trimester (principal); R10.9 Unspecified abdominal pain; E66.9 Obesity, unspecified; Z68.43 Body mass index [BMI] 50.0-59.9, adult; Z90.49 Acquired absence of other specified parts of digestive tract; Z98.890 Other specified postprocedural states; Z3A.11 11 weeks gestation of pregnancy; Z88.0 Allergy status to penicillin; Z88.8 Allergy status to other drugs, medicaments and biological substances
CPT/HCPCS: 36415; 76801; 80053; 80307; 81001; 81025; 84702; 85025; 99284-25

== ENCOUNTER 2019-02-10 14:26 | Observation (INO) | payer OTHER ==
[2019-02-10] MEDS ORDERED: IV RINGERS,LACTATED 1000ML 1,000 ML IV SCH (15:01)
[2019-02-10] MEDS ORDERED: IV DEXTROSE 5%-LACT RINGERS 1,000 ML IV SCH (15:01)
[2019-02-10 15:08] LABS: BASO # 0.1 x10^3/uL (0.0-0.2); BASO % 1 % (0-3); EOS # 0.2 x10^3/uL (0.0-0.7); EOS % 2 % (0-3); HEMATOCRIT 36.6 % (36.0-47.0); HEMOGLOBIN 12.6 g/dL (12.0-15.5); LYMPH # 2.1 x10^3/uL (1.0-4.8); LYMPH % 18 % (24-48); MEAN CORPUSCULAR HEMOGLOBIN 30 pg (25-35); MEAN CORPUSCULAR HGB CONC 35 g/dL (31-37); MEAN CORPUSCULAR VOLUME 87 fL (79-100); MONO # 0.5 x10^3/uL (0.0-1.1); MONO % 4 % (0-9); NEUT # 8.8 x10^3uL (1.8-7.7); NEUT % 75 % (31-73); PLATELET COUNT 330 x10^3/uL (140-400); RED BLOOD COUNT 4.21 x10^6/uL (3.50-5.40); RED CELL DISTRIBUTION WIDTH 13.5 % (11.5-14.5); WHITE BLOOD COUNT 11.7 x10^3/uL (4.0-11.0)
[2019-02-10 15:12] LABS: BILIRUBIN,URINE NEGATIVE (NEG); CLARITY,URINE CLEAR; COLOR,URINE YELLOW; NITRITE,URINE NEGATIVE (NEG); PH,URINE 5.5; PROTEIN,URINE NEGATIVE (NEG-TRACE); UROBILINOGEN,URINE 0.2 mg/dL (0.2 mg/dL)
[2019-02-10 15:18] LABS: BACTERIA,URINE FEW /HPF (0-FEW); SQUAMOUS EPITHELIAL CELL,UR MOD /LPF; WBC,URINE OCC /HPF (0-4)
[2019-02-10 15:19] LABS: RBC,URINE 0 /HPF (0-2)
[2019-02-10 15:22] LABS: CALCIUM 8.9 mg/dL (8.5-10.1); CREATININE 0.8 mg/dL (0.6-1.0); GFR 87.4; POTASSIUM 3.8 mmol/L (3.5-5.1)
[2019-02-10 15:28] LABS: ALBUMIN 2.9 g/dL (3.4-5.0); ALBUMIN/GLOBULIN RATIO 0.9 (1.0-1.7); TOTAL BILIRUBIN 0.2 mg/dL (0.2-1.0); TOTAL PROTEIN 6.2 g/dL (6.4-8.2)
== END 2019-02-10 16:57 | disposition home or self-care (01) ==
LOC: 3 SO LND 14:26
PROVIDERS: ADMIT Specialist; ATTEND Specialist
DX: O26.892 Other specified pregnancy related conditions, second trimester (principal); R42 Dizziness and giddiness; O99.282 Endocrine, nutritional and metabolic diseases complicating pregnancy, second trimester; E86.0 Dehydration; Z3A.22 22 weeks gestation of pregnancy
CPT/HCPCS: 36415; 80053; 81001; 85025; 96360; G0378; G0379; J7120

== ENCOUNTER 2019-03-15 13:11 | Observation (INO) | payer OTHER ==
[2019-03-15] MEDS ORDERED: IV RINGERS,LACTATED 1000ML 1,000 ML IV PRN (13:30)
== END 2019-03-15 14:29 | disposition home or self-care (01) ==
LOC: 3 SO LND 13:11
PROVIDERS: ADMIT Specialist; ATTEND Specialist
DX: O26.893 Other specified pregnancy related conditions, third trimester (principal); R10.9 Unspecified abdominal pain; Z3A.36 36 weeks gestation of pregnancy
CPT/HCPCS: G0378; G0379

== ENCOUNTER 2019-03-15 14:01 | Emergency (ER) | payer OTHER ==
[~2019-03-15] VITALS: Ht 172.7 cm; Wt 151.0 kg
[2019-03-15 14:11] VITALS: BP 154/87
== END 2019-03-15 14:48 | disposition left against medical advice (07) ==
LOC: ER 14:01
DX: O99.512 Diseases of the respiratory system complicating pregnancy, second trimester (principal); R06.02 Shortness of breath; R09.81 Nasal congestion; Z3A.20 20 weeks gestation of pregnancy; Z53.21 Procedure and treatment not carried out due to patient leaving prior to being seen by health care provider

== ENCOUNTER 2019-04-19 21:25 | Observation (INO) | payer OTHER ==
[2019-03-16 12:22] VITALS: BP 125/75
[2019-04-19] MEDS ORDERED: ACETAMINOPHEN 325 MG TABLET. PO PRN (21:45)
[2019-04-19] MEDS ORDERED: IV RINGERS,LACTATED 1000ML 1,000 ML IV SCH (21:45)
[2019-04-19 21:51] LABS: BILIRUBIN,URINE NEGATIVE (NEG); CLARITY,URINE CLEAR; COLOR,URINE YELLOW; NITRITE,URINE NEGATIVE (NEG); PH,URINE 5.5; PROTEIN,URINE NEGATIVE (NEG-TRACE); UROBILINOGEN,URINE 0.2 mg/dL (0.2 mg/dL)
[2019-04-19 21:57] LABS: CREATININE,RANDOM URINE 244.2 mg/dL (Not Establ.)
[2019-04-19 21:59] LABS: AMPHETAMINE/METHAMPHETAMINE NEG (NEG); BARBITURATES NEG (NEG); BENZODIAZEPINES NEG (NEG); CANNABINOIDS NEG (NEG); COCAINE NEG (NEG); METHADONE NEG (NEG); OPIATES NEG (NEG); PHENCYCLIDINE NEG (NEG)
[2019-04-19 22:03] LABS: BACTERIA,URINE FEW /HPF (0-FEW); SQUAMOUS EPITHELIAL CELL,UR MANY /LPF
[2019-04-19 22:47] LABS: BASO % 0 % (0-3); EOS # 0.1 x10^3/uL (0.0-0.7); EOS % 2 % (0-3); HEMATOCRIT 34.2 % (36.0-47.0); HEMOGLOBIN 11.9 g/dL (12.0-15.5); LYMPH % 23 % (24-48); MEAN CORPUSCULAR HEMOGLOBIN 30 pg (25-35); MEAN CORPUSCULAR HGB CONC 35 g/dL (31-37); MEAN CORPUSCULAR VOLUME 87 fL (79-100); MONO # 0.5 x10^3/uL (0.0-1.1); MONO % 6 % (0-9); NEUT % 69 % (31-73); PLATELET COUNT 265 x10^3/uL (140-400); RED BLOOD COUNT 3.95 x10^6/uL (3.50-5.40); RED CELL DISTRIBUTION WIDTH 14.5 % (11.5-14.5); WHITE BLOOD COUNT 8.8 x10^3/uL (4.0-11.0)
[2019-04-19 22:57] LABS: CALCIUM 8.5 mg/dL (8.5-10.1); CREATININE 0.7 mg/dL (0.6-1.0); POTASSIUM 3.3 mmol/L (3.5-5.1)
[2019-04-19 23:03] LABS: ALBUMIN 2.5 g/dL (3.4-5.0); ALBUMIN/GLOBULIN RATIO 0.7 (1.0-1.7); TOTAL BILIRUBIN 0.1 mg/dL (0.2-1.0); TOTAL PROTEIN 6.2 g/dL (6.4-8.2)
== END 2019-04-19 23:20 | disposition home or self-care (01) ==
LOC: 3 SO LND 21:25
PROVIDERS: ADMIT Specialist; ATTEND Specialist
DX: O26.893 Other specified pregnancy related conditions, third trimester (principal); R51 Headache; Z3A.32 32 weeks gestation of pregnancy
CPT/HCPCS: 36415; 80053; 80307; 81001; 82570; 84156; 85025; G0378; G0379

== ENCOUNTER 2019-04-28 12:10 | Observation (INO) | payer OTHER ==
[2019-03-16 12:22] VITALS: BP 125/75
[~2019-04-28] VITALS: Ht 172.7 cm; Wt 152.4 kg
--- NOTE | 2019-04-28 13:54 | RAD ---
Examination: BIOPHYS PROFILE W/O NON STRESS History: No movement Comparison/Correlation: 12/06/2018 OB ultrasound less than 14 weeks Findings: Biophysical profile exam was performed. Ultrasound imaging is limited due to patient body habitus. The following scores were obtained: breathing movements: 2 motion: 2 tone: 2 Amniotic fluid volume: 2 Placental is fundal in location. heart rate is 144 bpm. Intrauterine gestation is noted to have cephalic lie. Intrauterine gestation which has a by ultrasound 33 weeks 0 days noted. EDC of 06/16/2019 noted. Cervical length is 4.62 cm although visualization of the cervix is limited. measurements include: Biparietal diameter: 8.22 cm corresponding to 33 weeks 0 days. Femur length of 6.38 cm corresponding to 33 weeks 0 days. Head circumference of 29.79 cm corresponding to 33 weeks 0 days. Abdominal circumference of 28.86 cm corresponding to 30 weeks 6 days. Estimated weight is 2018 g +/- 308 g and this is identified to correspond with the 45th percentile Age by 4 parameters corresponds to 33 weeks 0 days. EDC by average age is 06/16/2019. Gestational age by last menstrual period is 32 weeks 6 days. Cephalic index of 82.4. H/A ratio is 1.03. FL/BPD is 77.6. FL/ AC is 22.1. Amniotic fluid index is 10.6. IMPRESSION: Biophysical profile score is 8/8. motion is identified. heart rate detected. Single living intrauterine gestation with ultrasound age of 33 weeks 0 days is 1 day greater than age by last menstrual period. Adequate interval growth since the prior ultrasound exam is noted. Electronically signed by: Stanley Jackman MD (04/28/2019 1:51 PM) [id number]
== END 2019-04-28 13:50 | disposition home or self-care (01) ==
LOC: 3 SO LND 12:10
PROVIDERS: ADMIT Specialist; ATTEND Specialist
DX: O36.8130 Decreased fetal movements, third trimester, not applicable or unspecified (principal); Z3A.33 33 weeks gestation of pregnancy
CPT/HCPCS: 76819; G0378; G0379

== ENCOUNTER 2019-06-08 06:06 | Inpatient (IN) | payer OTHER ==
[~2019-06-08] VITALS: Ht 172.7 cm; Wt 153.8 kg
[2019-06-08] MEDS ORDERED: BUTORPHANOL 2 MG/ML VIAL. IV PRN ×2 (06:15)
[2019-06-08] MEDS ORDERED: MAG HYDROX/ALUMINUM HYD/SIMETH 30 ML ORAL.SUSP PO PRN (06:15)
[2019-06-08] MEDS ORDERED: OXYTOCIN 30 UNIT/500 ML PREMIX 500 ML IV PRN (06:15)
[2019-06-08] MEDS ORDERED: LIDOCAINE 1% PF 30 ML VIAL. INJ PRN (06:15)
[2019-06-08] MEDS ORDERED: ONDANSETRON PF 4 MG/2 ML VIAL. IV PRN (06:15)
[2019-06-08] MEDS ORDERED: fentaNYL PF VIAL 100 MCG/2 ML VIAL IV PRN ×2 (06:15)
[2019-06-08] MEDS ORDERED: IBUPROFEN 400 MG TABLET. PO PRN (06:15)
[2019-06-08] MEDS ORDERED: TERBUTALINE 1 MG/ML VIAL. SQ PRN (06:15)
[2019-06-08] MEDS ORDERED: 0.9 % SODIUM CHLORIDE 10 ML DISP.SYRIN. IV PRN (06:15)
[2019-06-08 07:08] LABS: BASO % 0 % (0-3); EOS # 0.2 x10^3/uL (0.0-0.7); EOS % 2 % (0-3); HEMATOCRIT 37.8 % (36.0-47.0); LYMPH # 1.8 x10^3/uL (1.0-4.8); LYMPH % 19 % (24-48); MEAN CORPUSCULAR HEMOGLOBIN 30 pg (25-35); MEAN CORPUSCULAR HGB CONC 34 g/dL (31-37); MEAN CORPUSCULAR VOLUME 86 fL (79-100); MONO # 0.4 x10^3/uL (0.0-1.1); MONO % 5 % (0-9); NEUT # 6.7 x10^3/uL (1.8-7.7); NEUT % 74 % (31-73); PLATELET COUNT 271 x10^3/uL (140-400); RED CELL DISTRIBUTION WIDTH 15.1 % (11.5-14.5); WHITE BLOOD COUNT 9.1 x10^3/uL (4.0-11.0)
[2019-06-08 07:13] LABS: BILIRUBIN,URINE NEGATIVE (NEG); CLARITY,URINE CLOUDY; COLOR,URINE AMBER; NITRITE,URINE NEGATIVE (NEG); PROTEIN,URINE 30 mg/dL (NEG-TRACE); UROBILINOGEN,URINE 0.2 mg/dL (0.2 mg/dL)
[2019-06-08] MEDS: IV RINGERS,LACTATED 1000ML 1,000 ML IV SCH ×4 (07:24→20:37)
[2019-06-08] MEDS: OXYTOCIN 30 UNIT/500 ML PREMIX 500 ML IV PRN (07:25)
[2019-06-08 07:53] LABS: BACTERIA,URINE FEW /HPF (0-FEW); SQUAMOUS EPITHELIAL CELL,UR MANY /LPF
[2019-06-08] MEDS ORDERED: DINOPROSTONE 10 MG SUPP.VAG VG ONE (11:00)
[2019-06-08] MEDS: fentaNYL PF VIAL 100 MCG/2 ML VIAL IV PRN ×2 (15:56→18:12)
[2019-06-08] MEDS ORDERED: NALBUPHINE 10 MG/ML AMPUL. IV PRN (19:30)
[2019-06-09] MEDS ORDERED: L&D EPIDURAL SYRINGE 50 ML ONE (00:33)
[2019-06-09] MEDS ORDERED: ROPIVacaine 0.2% PF 10 ML VIAL. ONE ×2 (00:33→01:00)
[2019-06-09] MEDS ORDERED: L&D EPIDURAL 50 ML SYRINGE. ONE (01:00)
[2019-06-09] MEDS: IV RINGERS,LACTATED 1000ML 1,000 ML IV SCH (01:04)
[2019-06-09] MEDS ORDERED: fentaNYL PF VIAL 100 MCG/2 ML VIAL ONE (01:42)
[2019-06-09] MEDS ORDERED: LIDOCAINE 1% PF 30 ML VIAL. ONE (01:42)
[2019-06-09] MEDS ORDERED: BUPIVACAINE MPF 0.25% 30 ML VIAL. EPID PRN (01:45)
[2019-06-09] MEDS ORDERED: ROPIVacaine 0.2% IN 0.9%NACL PF 40 MG/20 ML DISP.SYRIN. EPID PRN (01:45)
[2019-06-09] MEDS ORDERED: NALOXONE 0.4 MG/ML VIAL. IV PRN (01:45)
[2019-06-09] MEDS ORDERED: IV RINGERS,LACTATED 1000ML 1,000 ML IV SCH (02:00)
[2019-06-09] MEDS: L&D EPIDURAL SYRINGE 50 ML EPID PRN ×2 (04:01→06:39)
[2019-06-09] MEDS ORDERED: MMR per PROTOCOL. MC PRN (07:50)
[2019-06-09] MEDS ORDERED: BENZOCAINE 20% TOPICAL AEROSOL SPRAY 57GM CAN. TP PRN (08:00)
[2019-06-09] MEDS ORDERED: SIMETHICONE 80 MG TAB.CHEW PO PRN (08:00)
[2019-06-09] MEDS ORDERED: ZOLPIDEM 5 MG TABLET. PO PRN (08:00)
[2019-06-09] MEDS ORDERED: MAGNESIUM HYDROXIDE 2,400 MG/30 ML ORAL.SUSP. PO PRN (08:00)
[2019-06-09] MEDS ORDERED: 0.9 % SODIUM CHLORIDE 10 ML DISP.SYRIN. IV PRN (08:00)
[2019-06-09] MEDS ORDERED: MAG HYDROX/ALUMINUM HYD/SIMETH 30 ML ORAL.SUSP PO PRN (08:00)
[2019-06-09] MEDS ORDERED: PHENYLEPH/MINERAL OIL/PETROLAT RECTAL OINTMENT TUBE. RC PRN (08:00)
[2019-06-09] MEDS ORDERED: HYDROCORTISONE 1% TOPICAL OINTMENT 30GM TUBE. TP PRN (08:00)
[2019-06-09] MEDS: FERROUS SULFATE 325 MG TABLET. PO SCH ×2 (08:00→15:52)
[2019-06-09] MEDS ORDERED: OXYTOCIN 30 UNIT/500 ML PREMIX 500 ML IV PRN (08:00)
[2019-06-09] MEDS ORDERED: ACETAMINOPHEN 325 MG TABLET. PO PRN (08:00)
[2019-06-09] MEDS ORDERED: diphenhydrAMINE HCL 25 MG CAPSULE PO PRN (08:00)
--- NOTE | 2019-06-09 08:08 | PDOC ---
VAGINAL DELIVERY DATE DATE: 06/09/19 TIME: 08:07 : 4 Para: 2 EDC: Jun 12, 2019 VAGINAL DELIVERY: VTX VACCUM ASSISTED: No PLACENTA: Spontaneous SEX: Male WEIGHT Weight [ ] Nuchal Cord: No Amniotic Fluid: Clear PAIN: Epidural EPISIOTOMY: No EBL 300cc COMPLICATIONS none CONDITION Stable Signs of Intrauterine Infectio: None Shoulder Dystocia: No DIAGNOSIS HARITHA Maya MD Jun 09, 2019 08:08
[2019-06-09] MEDS: OXYTOCIN 30 UNIT/500 ML PREMIX 500 ML IV PRN (08:51)
[2019-06-09 11:03] VITALS: BP 132/78
[2019-06-09] MEDS ORDERED: IBUPROFEN 400 MG TABLET. PO SCH (14:00)
[2019-06-09] MEDS: IBUPROFEN 400 MG TABLET. PO PRN (15:43)
[2019-06-09 15:50] VITALS: BP 135/82
[2019-06-09] MEDS: ACETAMINOPHEN 325 MG TABLET. PO PRN (20:12)
[2019-06-09 22:42] VITALS: BP 140/81
[2019-06-10] MEDS: IBUPROFEN 400 MG TABLET. PO PRN ×2 (03:56→21:59)
[2019-06-10 05:10] VITALS: BP 120/80
[2019-06-10] MEDS: ACETAMINOPHEN 325 MG TABLET. PO PRN (09:39)
[2019-06-10 10:20] VITALS: BP 128/77
[2019-06-10 17:31] VITALS: BP 134/78
--- NOTE | 2019-06-10 21:11 | PDOC ---
Provider Note Provider Note No complaints VSS Uterus NTTP Fu in AM HARITHA REYES MD Jun 10, 2019 21:11
[2019-06-10 22:00] VITALS: BP 129/74
[2019-06-11 06:11] VITALS: BP 116/76
[2019-06-11] MEDS: IBUPROFEN 400 MG TABLET. PO PRN (09:31)
[2019-06-11 11:00] VITALS: BP 117/64
--- NOTE | 2019-06-11 14:53 | PDOC3 ---
OB DISCHARGE SUMMARY DATE OF ADMISSION: 06/09/19 DATE OF DISCHARGE: 06/11/19 REASON FOR ADMISSION: Induction of labor PROCEDURES: Ultrasound INTRAPARTUM PROCEDURES: Spontanous Vag Deliv PROCEDURES: None DISCHARGE DIAGNOSIS: Term Delivered DISCHARGE INFORMATION: Activity, Diet HOSPITAL COURSE Unremarkable CONDITION AT DISCHARGE Stable HARITHA REYES MD Jun 11, 2019 14:53
--- NOTE | 2019-06-11 14:57 | PDOC1 ---
OB - History Hx of Present Care: Good Care Ultrasounds: Normal mid trimester US Obstetrical Complications: None Medical Complications: None Past Family/Social History * Past Medical, Surgical, Family and Obstetric Histories reviewed from chart. Blood Type: O+ Rubella: Immune RPR/VDRL: Negative GBS Status: Unknown HBsAG: Negative OB - Chief Complaint & HPI Date of Admission: Date of Admission: Jun 08, 2019 at 06:06 Chief Complaint/History : 4 Para: 2 EDC: Jun 12, 2019 Reason for admission: induction of labor Admission Nurse Assessment Rev: Yes OB - Admission Exam Physical Exam Vitals: VS - Last 72 Hours, by Label Date Time Temp Pulse Resp B/P (MAP) Pulse Ox O2 Delivery O2 Flow Rate FiO2 06/11/19 11:00 98.0 86 20 117/64 (81) 99 Room Air 98.0 06/11/19 06:11 98.1 74 20 116/76 (89) Room Air 98.1 06/10/19 22:00 97.7 80 22 129/74 (92) 97 Room Air 97.7 06/10/19 17:31 98.2 81 26 134/78 (96) 98 Room Air 98.2 06/10/19 10:20 98.0 82 18 128/77 (94) 98 Room Air 98.0 06/10/19 05:10 97.7 76 20 120/80 (93) 97.7 06/09/19 22:42 97.8 76 20 140/81 (100) 97.8 06/09/19 15:50 98.2 91 20 135/82 (99) 97 Room Air 98.2 06/09/19 11:03 98.4 91 20 132/78 (96) 97.0 98.4 06/09/19 06:39 20 Room Air 06/09/19 04:01 20 Room Air 06/08/19 20:37 18 98 Room Air 06/08/19 18:12 16 06/08/19 15:56 16 Room Air Heart: Regular Rate Lungs: Clear, Equal Abdomen: Gravid Extremities: Normal Pulses, No tenderness or swelling Reflexes: Normal Cervical Dilatation: 2cm Effacement: 50% Membranes: Intact Amniotic Fluid: Clear Heart Rate: Normal Accelerations: Accelerations Present Contractions on Admission: >10 Minutes Apart Intensity: Mild Assessment/Plan Assessment/Plan TIUP Induction ACSVD REYES,HARITHA K MD Jun 11, 2019 14:57
[2019-06-11 15:00] VITALS: BP 133/65
[2019-06-11] MEDS ORDERED: NAPR-514 PO (15:01)
[2019-06-11] MEDS ORDERED: HYDR-3164 PO (15:01)
--- NOTE | 2019-06-11 15:31 | NUR ---
Discharge Discharge instructions given to patient at this time, no questions or concerns noted. To follow up with DR Pathak in 1 week. Waiting for transportation, will continue to monitor.
== END 2019-06-11 16:56 | disposition home or self-care (01) | DRG 807 ==
LOC: 3 SO LND 06:06 → 3 NORTH 06-09 10:06
PROVIDERS: ADMIT Specialist; ATTEND Specialist
PROC: 10E0XZZ Delivery of Products of Conception, External Approach (ICD-10-PCS; principal; 2019-06-09)
PROC: 00HU33Z Insertion of Infusion Device into Spinal Canal, Percutaneous Approach (ICD-10-PCS; 2019-06-09)
PROC: 3E0R3BZ Introduction of Anesthetic Agent into Spinal Canal, Percutaneous Approach (ICD-10-PCS; 2019-06-09)
DX: O80 Encounter for full-term uncomplicated delivery (principal); Z37.0 Single live birth; Z3A.00 Weeks of gestation of pregnancy not specified
CPT/HCPCS: 36415; 81001; 85014; 85025; 86592; 86850; 86900; 86901; 87086; J2300; J2590; J2795; J3010; J7120; G0378

== ENCOUNTER 2019-08-14 20:23 | Inpatient (IN) | payer OTHER ==
[~2019-08-14] VITALS: Ht 172.7 cm; Wt 152.0 kg
[~2019-08-14 20:23] MED LIST changes: +NAPR-514 PO
[2019-08-14 22:07] LABS: BASO # 0.1 x10^3/uL (0.0-0.2); BASO % 1 % (0-3); EOS # 0.4 x10^3/uL (0.0-0.7); EOS % 4 % (0-3); HEMATOCRIT 44.2 % (36.0-47.0); HEMOGLOBIN 14.9 g/dL (12.0-15.5); LYMPH # 3.4 x10^3/uL (1.0-4.8); LYMPH % 33 % (24-48); MEAN CORPUSCULAR HEMOGLOBIN 29 pg (25-35); MEAN CORPUSCULAR HGB CONC 34 g/dL (31-37); MEAN CORPUSCULAR VOLUME 87 fL (79-100); MONO # 0.9 x10^3/uL (0.0-1.1); MONO % 9 % (0-9); NEUT # 5.5 x10^3/uL (1.8-7.7); NEUT % 54 % (31-73); PLATELET COUNT 322 x10^3/uL (140-400); RED CELL DISTRIBUTION WIDTH 14.4 % (11.5-14.5); WHITE BLOOD COUNT 10.3 x10^3/uL (4.0-11.0)
[2019-08-14] MEDS ORDERED: IV NORMAL SALINE 1000ML BAG 1,000 ML IV ONE (22:30)
[2019-08-14] MEDS ORDERED: IOHEXOL 300 MG/ML 100ML VIAL. IV ONE (23:00)
[2019-08-14] MEDS ORDERED: CONTRAST GIVEN. MC PRN (23:00)
[2019-08-14 23:01] LABS: CALCIUM 8.6 mg/dL (8.5-10.1); GFR 67.6; POTASSIUM 3.9 mmol/L (3.5-5.1)
[2019-08-14 23:08] LABS: ALBUMIN 3.5 g/dL (3.4-5.0); ALBUMIN/GLOBULIN RATIO 0.9 (1.0-1.7); TOTAL BILIRUBIN 0.2 mg/dL (0.2-1.0); TOTAL PROTEIN 7.4 g/dL (6.4-8.2)
[2019-08-14 23:14] LABS: BILIRUBIN,URINE SMALL (NEG); CLARITY,URINE CLEAR; COLOR,URINE YELLOW; NITRITE,URINE NEGATIVE (NEG); PROTEIN,URINE 30 mg/dL (NEG-TRACE)
[2019-08-14 23:24] LABS: BACTERIA,URINE FEW /HPF (0-FEW); SQUAMOUS EPITHELIAL CELL,UR MOD /LPF
[2019-08-14 23:25] LABS: AMORPHOUS SEDIMENT,UR PRESENT /HPF
[2019-08-14 23:36] LABS: BARBITURATES NEG (NEG); BENZODIAZEPINES NEG (NEG); CANNABINOIDS NEG (NEG); COCAINE NEG (NEG); METHADONE NEG (NEG); OPIATES NEG (NEG); PHENCYCLIDINE NEG (NEG)
[2019-08-14 23:38] LABS: AMPHETAMINE/METHAMPHETAMINE NEG (NEG)
--- NOTE | 2019-08-14 23:41 | RAD ---
CT HEAD WO CONTRAST History: Headache. Comparison: October 28, 2009 Technique: Noncontrast CT imaging was performed of the head. Coronal reconstruction was performed. Exposure: One or more of the following individualized dose reduction techniques were utilized for this examination: 1. Automated exposure control 2. Adjustment of the mA and/or kV according to patient size 3. Use of iterative reconstruction technique. Findings: No intracranial hemorrhage. No mass effect. No hydrocephalus. Partially empty sella. Imaged orbits are unremarkable. Complete opacification of the left maxillary sinus. Moderate left sphenoid sinus mucosal thickening with fluid. Scattered ethmoid sinus partial opacification with additional mucosal thickening in the frontal sinuses. Mastoid air cells are clear. No acute calvarial fracture. Impression: 1. No acute intracranial abnormality. 2. Paranasal sinus disease, can be seen with acute sinusitis in the appropriate clinical setting. 3. Partially empty sella, can be incidental although can be seen with intracranial hypertension or panhypopituitarism. Electronically signed by: Krunal Ramirez DO (08/14/2019 11:38 PM) [facility]
[2019-08-14 23:50] LABS: CREATININE,RANDOM URINE 484.9 mg/dL (Not Establ.)
--- NOTE | 2019-08-14 23:57 | PHYS DOC ---
Past Medical History Past Medical History: Anxiety Additional Past Medical Histor: hernia, obesity,dental pain Past Surgical History: Cholecystectomy, Tonsillectomy Additional Past Surgical Histo: HERNIA, R eye surgery Smoking: Cigarettes, 1 Pack Per Day Alcohol Use: None Drug Use: None Adult General Chief Complaint Chief Complaint: COUGH HPI HPI Patient is a 24 year old female, accompanied by her significant other, who presents to the emergency department with complaints of a dry cough, and nasal congestion for the last week. Patient states she also has had a headache since this morning that has not gone away with Tylenol. Patient states she has headaches daily but they always go away when she takes Tylenol. She states these headaches have been occurring for several months. Patient recently had a child on June [id number]. She states that for the last 2 days she hasn't been able to taste or smell. She denies any fever, abdominal pain, nausea, vomiting, diarrhea, numbness, tingling, weakness, vision changes, rash, sore throat, body aches, dysuria, hematuria, low back pain. Patient states that she does smoke about a pack of cigarettes a day. She states that her only medical history is anxiety and some intermittent high blood pressure when she was . Patient denies ever taking any medications for hypertension during her . Review of Systems Review of Systems Constitutional: Denies fever or chills [] Eyes: Denies change in visual acuity, redness, or eye pain [] HENT: see HPI Respiratory: Denies cough or shortness of breath [] Cardiovascular: No additional information not addressed in HPI [] GI: Denies abdominal pain, nausea, vomiting, or diarrhea [] : Denies dysuria or hematuria [] Musculoskeletal: Denies back pain or joint pain [] Integument: Denies rash or skin lesions [] Neurologic: see HPI Endocrine: Denies polyuria or polydipsia [] Complete systems were reviewed and found to be within normal limits, except as documented in this note. Current Medications Current Medications Current Medications Medications (Trade) Dose Ordered Sig/Darnell Start Time Stop Time Status Last Admin Dose Admin Info (CONTRAST GIVEN -- Rx MONITORING) 1 each PRN DAILY PRN 08/14/19 23:00 08/16/19 22:59 Iohexol (Omnipaque 300 Mg/ml) 75 ml 1X ONCE 08/14/19 23:00 08/14/19 23:01 DC Lorazepam (Ativan Inj) 1 mg 1X ONCE 08/14/19 22:00 08/14/19 22:01 DC 08/14/19 21:50 1 MG Sodium Chloride 1,000 ml @ 1,000 mls/hr 1X ONCE 08/14/19 22:30 08/14/19 23:29 DC 08/14/19 22:30 1,000 MLS/HR Allergies Allergies Allergies Coded Allergies Type Severity Reaction Last Updated Verified Penicillins Allergy Intermediate 04/23/17 Yes cefprozil Allergy Intermediate 04/23/17 Yes Physical Exam Physical Exam Constitutional: Well developed, well nourished, no acute distress, non-toxic appearance, obese. [] HENT: Normocephalic, atraumatic, bilateral external ears normal, oropharynx moist, nose normal. [] Eyes: PERRLA, EOMI, conjunctiva normal, no discharge. [] Neck: Normal range of motion, no stridor. [] Cardiovascular:Heart rate regular tachycardic rhythm, no murmur [] Lungs & Thorax: Bilateral breath sounds clear to auscultation [] Abdomen: soft, no tenderness Skin: Warm, dry, no erythema, no rash. [] Back: No CVA tenderness. [] Extremities: No cyanosis, no clubbing, ROM intact, no edema. [] Neurologic: Alert and oriented X 3, no focal deficits noted. [] Psychologic: Affect normal, judgement normal, mood normal. [] Current Patient Data Vital Signs Vital Signs Date Time Temp Pulse Resp B/P (MAP) Pulse Ox O2 Delivery O2 Flow Rate FiO2 08/14/19 22:41 116 26 128/62 (84) 97 Room Air 08/14/19 20:44 98.2 98.2 Lab Values Laboratory Tests Test 08/14/19 21:50 08/14/19 22:40 08/14/19 23:03 08/14/19 23:05 White Blood Count 10.3 x10^3/uL (4.0-11.0) Red Blood Count 5.10 x10^6/uL (3.50-5.40) Hemoglobin 14.9 g/dL (12.0-15.5) Hematocrit 44.2 % (36.0-47.0) Mean Corpuscular Volume 87 fL (79-100) Mean Corpuscular Hemoglobin 29 pg (25-35) Mean Corpuscular Hemoglobin Concent 34 g/dL (31-37) Red Cell Distribution Width 14.4 % (11.5-14.5) Platelet Count 322 x10^3/uL (140-400) Neutrophils (%) (Auto) 54 % (31-73) Lymphocytes (%) (Auto) 33 % (24-48) Monocytes (%) (Auto) 9 % (0-9) Eosinophils (%) (Auto) 4 % (0-3) H Basophils (%) (Auto) 1 % (0-3) Neutrophils # (Auto) 5.5 x10^3/uL (1.8-7.7) Lymphocytes # (Auto) 3.4 x10^3/uL (1.0-4.8) Monocytes # (Auto) 0.9 x10^3/uL (0.0-1.1) Eosinophils # (Auto) 0.4 x10^3/uL (0.0-0.7) Basophils # (Auto) 0.1 x10^3/uL (0.0-0.2) Sodium Level 145 mmol/L (136-145) Potassium Level 3.9 mmol/L (3.5-5.1) Chloride Level 107 mmol/L (98-107) Carbon Dioxide Level 26 mmol/L (21-32) Anion Gap 12 (6-14) Blood Urea Nitrogen 16 mg/dL (7-20) Creatinine 1.0 mg/dL (0.6-1.0) Estimated GFR (Cockcroft-Gault) 67.6 BUN/Creatinine Ratio 16 (6-20) Glucose Level 85 mg/dL (70-99) Calcium Level 8.6 mg/dL (8.5-10.1) Total Bilirubin 0.2 mg/dL (0.2-1.0) Aspartate Amino Transferase (AST) 32 U/L (15-37) Alanine Aminotransferase (ALT) 77 U/L (14-59) H Alkaline Phosphatase 63 U/L (46-116) Total Protein 7.4 g/dL (6.4-8.2) Albumin 3.5 g/dL (3.4-5.0) Albumin/Globulin Ratio 0.9 (1.0-1.7) L Urine Collection Type Unknown Urine Color Yellow Urine Clarity Clear Urine pH 6.0 Urine Specific [place] >=1.030 Urine Protein 30 mg/dL (NEG-TRACE) Urine Glucose (UA) Negative mg/dL (NEG) Urine Ketones (Stick) Trace mg/dL (NEG) Urine Blood Moderate (NEG) Urine Nitrite Negative (NEG) Urine Bilirubin Small (NEG) Urine Urobilinogen Dipstick 1.0 mg/dL (0.2 mg/dL) Urine Leukocyte Esterase Negative (NEG) Urine RBC 3-5 /HPF (0-2) Urine WBC 1-4 /HPF (0-4) Urine Squamous Epithelial Cells Mod /LPF Urine Amorphous Sediment Present /HPF Urine Bacteria Few /HPF (0-FEW) Urine Mucus Slight /LPF Urine Random Creatinine 484.9 mg/dL (Not Establ.) Urine Random Total Protein 41.5 mg/dL (Not Establ.) Urine Protein/Creatinine Ratio 86 mg/g (0-200) Urine Opiates Screen Neg (NEG) Urine Methadone Screen Neg (NEG) Urine Barbiturates Neg (NEG) Urine Phencyclidine Screen Neg (NEG) Urine Amphetamine/Methamphetamine Neg (NEG) Urine Benzodiazepines Screen Neg (NEG) Urine Cocaine Screen Neg (NEG) Urine Cannabinoids Screen Neg (NEG) Urine Ethyl Alcohol Neg (NEG) POC Urine HCG, Qualitative Hcg negative (Negative) Laboratory Tests 08/14/19 21:50 Laboratory Tests 08/14/19 22:40 EKG EKG [] Radiology/Procedures Radiology/Procedures PROCEDURE: CT HEAD WO CONTRAST CT HEAD WO CONTRAST History: Headache. Comparison: October 28, 2009 Technique: Noncontrast CT imaging was performed of the head. Coronal reconstruction was performed. Exposure: One or more of the following individualized dose reduction techniques were utilized for this examination: 1. Automated exposure control 2. Adjustment of the mA and/or kV according to patient size 3. Use of iterative reconstruction technique. Findings: No intracranial hemorrhage. No mass effect. No hydrocephalus. Partially empty sella. Imaged orbits are unremarkable. Complete opacification of the left maxillary sinus. Moderate left sphenoid sinus mucosal thickening with fluid. Scattered ethmoid sinus partial opacification with additional mucosal thickening in the frontal sinuses. Mastoid air cells are clear. No acute calvarial fracture. Impression: 1. No acute intracranial abnormality. 2. Paranasal sinus disease, can be seen with acute sinusitis in the appropriate clinical setting. 3. Partially empty sella, can be incidental although can be seen with intracranial hypertension or panhypopituitarism. [] Course & Med Decision Making Course & Med Decision Making Pertinent Labs and Imaging studies reviewed. (See chart for details) dx: headache, hypertension, abnormal head CT CBC unremarkable, CMP unremarkable, UA trace protein 30, prot/linux network engineer ratio 86 normal; UDS negative Pt's blood pressure was 184/110 on arrival, while I was at the bedside blood pressure was 175/88. Pt denies any hx of preeclampsia during her and denies taking any blood pressure medication during or after delivery. I spoke with Dr. Pathak who is the patient's OBGyn who recommended that a urine PROT/CREAT ratio be done. Dr. Pathak states that the elevated BP is not likely to be due to preeclampsia. 1 mg of IV ativan and 1L of NS were ordered and the patient's blood pressure lowered to 144/71, pt's heart rate was in the 110's throughout her visit, pt reports a hx of chronic tachycardia. She denies any chest pain or shortness of breath. CT head was concerning for sinusitis, and abnormal finding of partially empty sella, that can be incidental although can be seen with intracranial hypertension or panhypopituitarism. I discussed the abnormal head CT result with the patient and recommended admission to the hospital for further evaluation of abnormal head CT, hypertension, and daily headaches. Pt agreed with admission decision. The patient and POC was also discussed with Dr. García. The patient is admitted to the med/tele floor to Dr. Jackson. [] Dragon Disclaimer Dragon Disclaimer This electronic medical record was generated, in whole or in part, using a voice recognition dictation system. Departure Departure Impression: Primary Impression: Headache Additional Impressions: Hypertension Abnormal head CT Disposition: ADMITTED INPATIENT Admitting Physician: RADHA (Manuel) Condition: STABLE Referrals: NO PCP (PCP) Problem Qualifiers Primary Impression: Headache Headache type: unspecified Headache chronicity pattern: unspecified pattern Intractability: not intractable Qualified Codes: R51 - Headache Additional Impressions: Hypertension Hypertension type: unspecified Qualified Codes: I10 - Essential (primary) hypertension SAHIL CORREA HYDRAULIC MODELING ENGINEER Aug 14, 2019 23:57
[2019-08-15 02:20] VITALS: BP 154/88
[2019-08-15] MEDS ORDERED: SERT50TA8 PO (02:42)
[2019-08-15 07:00] VITALS: BP 147/85
[2019-08-15 11:00] VITALS: BP 123/86
--- NOTE | 2019-08-15 11:33 | PDOC1 ---
History and Physical Date of Admission Date of Admission DATE: 08/15/19 TIME: 11:28 Identification/Chief Complaint Chief Complaint SEEN IN THE the emergency department with complaints of a dry cough, and nasal congestion for the last week. Patient states she also has had a headache has not gone away with Tylenol. Patient states she has headaches daily but they always go away when she takes Tylenol. She states these headaches have been occurring for several months. BP VERY HIGH IN ER CT HEAD SUGGESTS EMPTY SELLA, HYPERTENSIVE URGENCY NOTED POSSIBLE INTRACRANIAL HYPERTENSION , Patient recently had a child on June 092018. She states that for the last 2 days she hasn't been able to taste or smell. She denies any fever, abdominal pain, nausea, vomiting, diarrhea, numbness, tingling, weakness, vision changes, rash, sore throat, body aches, dysuria, hematuria, low back pain. Patient states that she does smoke about a pack of cigarettes a day Past Medical History Past Medical History Past Medical History Past Medical History: Anxiety Additional Past Medical Histor: hernia, obesity,dental pain Past Surgical History: Cholecystectomy, Tonsillectomy Additional Past Surgical Histo: HERNIA, R eye surgery Smoking: Cigarettes, 1 Pack Per Day Alcohol Use: None Drug Use: None Family History Family History: Hypertension Social History Smoke: <1 pack per day ALCOHOL: occassional Drugs: None Current Problem List Problem List Problems Medical Problems: (1) Abnormal head CT Status: Acute (2) Headache Status: Acute (3) Hypertension Status: Acute Current Medications Current Medications Current Medications Lorazepam (Ativan Inj) 1 mg 1X ONCE IV Last administered on 08/14/19at 21:50; Start 08/14/19 at 22:00; Stop 08/14/19 at 22:01; Status DC Sodium Chloride 1,000 ml @ 1,000 mls/hr 1X ONCE IV Last administered on 08/14/19at 22:30; Start 08/14/19 at 22:30; Stop 08/14/19 at 23:29; Status DC Iohexol (Omnipaque 300 Mg/ml) 75 ml 1X ONCE IV ; Start 08/14/19 at 23:00; Stop 08/14/19 at 23:01; Status DC Info (CONTRAST GIVEN -- Rx MONITORING) 1 each PRN DAILY PRN MC SEE COMMENTS; Start 08/14/19 at 23:00; Stop 08/16/19 at 22:59 Active Scripts Active Ibuprofen 800 Mg Tablet 800 Mg PO PRN Q6HRS PRN Reported Sertraline Hcl 50 Mg Tablet 50 Mg PO DAILY Allergies Allergies: Coded Allergies: Penicillins (Verified Allergy, Intermediate, 04/23/17) cefprozil (Verified Allergy, Intermediate, 04/23/17) ROS Review of System Review of Systems Review of Systems Constitutional: Denies fever or chills [] Eyes: Denies change in visual acuity, redness, or eye pain [] HENT: see HPI Respiratory: Denies cough or shortness of breath [] Cardiovascular: No additional information not addressed in HPI [] GI: Denies abdominal pain, nausea, vomiting, or diarrhea [] : Denies dysuria or hematuria [] Musculoskeletal: Denies back pain or joint pain [] Integument: Denies rash or skin lesions [] Neurologic: see HPI Endocrine: Denies polyuria or polydipsia [] 14 PT systems were reviewed and found to be within normal limits, except as documented . HEENT: YES: Heacaches Hematological and Lymphatic: No: Bleeding Problems, Blood Clots, Blood Transfusions, Brusing, Night Sweats, Pallor, Swollen Lymph Nodes, Other Respiratory: No: Cough, Hemoptysis, Orthopnea, Pleuritic Pain, Shortness of breath, SOB with excertion, Sputum Changes, Stridor, Tachypnea, Wheezing, Other Vitals Vitals Vital Signs Date Time Temp Pulse Resp B/P (MAP) Pulse Ox O2 Delivery O2 Flow Rate FiO2 08/15/19 08:00 Room Air 08/15/19 07:00 98.7 85 12 147/85 (105) 96 98.7 Labs Labs Laboratory Tests Test 08/14/19 21:50 08/14/19 22:40 08/14/19 23:03 08/14/19 23:05 White Blood Count 10.3 x10^3/uL (4.0-11.0) Red Blood Count 5.10 x10^6/uL (3.50-5.40) Hemoglobin 14.9 g/dL (12.0-15.5) Hematocrit 44.2 % (36.0-47.0) Mean Corpuscular Volume 87 fL (79-100) Mean Corpuscular Hemoglobin 29 pg (25-35) Mean Corpuscular Hemoglobin Concent 34 g/dL (31-37) Red Cell Distribution Width 14.4 % (11.5-14.5) Platelet Count 322 x10^3/uL (140-400) Neutrophils (%) (Auto) 54 % (31-73) Lymphocytes (%) (Auto) 33 % (24-48) Monocytes (%) (Auto) 9 % (0-9) Eosinophils (%) (Auto) 4 % (0-3) Basophils (%) (Auto) 1 % (0-3) Neutrophils # (Auto) 5.5 x10^3/uL (1.8-7.7) Lymphocytes # (Auto) 3.4 x10^3/uL (1.0-4.8) Monocytes # (Auto) 0.9 x10^3/uL (0.0-1.1) Eosinophils # (Auto) 0.4 x10^3/uL (0.0-0.7) Basophils # (Auto) 0.1 x10^3/uL (0.0-0.2) Sodium Level 145 mmol/L (136-145) Potassium Level 3.9 mmol/L (3.5-5.1) Chloride Level 107 mmol/L (98-107) Carbon Dioxide Level 26 mmol/L (21-32) Anion Gap 12 (6-14) Blood Urea Nitrogen 16 mg/dL (7-20) Creatinine 1.0 mg/dL (0.6-1.0) Estimated GFR (Cockcroft-Gault) 67.6 BUN/Creatinine Ratio 16 (6-20) Glucose Level 85 mg/dL (70-99) Calcium Level 8.6 mg/dL (8.5-10.1) Total Bilirubin 0.2 mg/dL (0.2-1.0) Aspartate Amino Transf (AST/SGOT) 32 U/L (15-37) Alanine Aminotransferase (ALT/SGPT) 77 U/L (14-59) Alkaline Phosphatase 63 U/L (46-116) Total Protein 7.4 g/dL (6.4-8.2) Albumin 3.5 g/dL (3.4-5.0) Albumin/Globulin Ratio 0.9 (1.0-1.7) Urine Collection Type Unknown Urine Color Yellow Urine Clarity Clear Urine pH 6.0 Urine Specific [place] >=1.030 Urine Protein 30 mg/dL (NEG-TRACE) Urine Glucose (UA) Negative mg/dL (NEG) Urine Ketones (Stick) Trace mg/dL (NEG) Urine Blood Moderate (NEG) Urine Nitrite Negative (NEG) Urine Bilirubin Small (NEG) Urine Urobilinogen Dipstick 1.0 mg/dL (0.2 mg/dL) Urine Leukocyte Esterase Negative (NEG) Urine RBC 3-5 /HPF (0-2) Urine WBC 1-4 /HPF (0-4) Urine Squamous Epithelial Cells Mod /LPF Urine Amorphous Sediment Present /HPF Urine Bacteria Few /HPF (0-FEW) Urine Mucus Slight /LPF Urine Random Creatinine 484.9 mg/dL (Not Establ.) Urine Random Total Protein 41.5 mg/dL (Not Establ.) Urine Protein/Creatinine Ratio 86 mg/g (0-200) Urine Opiates Screen Neg (NEG) Urine Methadone Screen Neg (NEG) Urine Barbiturates Neg (NEG) Urine Phencyclidine Screen Neg (NEG) Urine Amphetamine/Methamphetamine Neg (NEG) Urine Benzodiazepines Screen Neg (NEG) Urine Cocaine Screen Neg (NEG) Urine Cannabinoids Screen Neg (NEG) Urine Ethyl Alcohol Neg (NEG) Bedside Urine HCG, Qualitative Hcg negative (Negative) Laboratory Tests Test 08/14/19 21:50 08/14/19 22:40 08/14/19 23:03 08/14/19 23:05 White Blood Count 10.3 x10^3/uL (4.0-11.0) Red Blood Count 5.10 x10^6/uL (3.50-5.40) Hemoglobin 14.9 g/dL (12.0-15.5) Hematocrit 44.2 % (36.0-47.0) Mean Corpuscular Volume 87 fL (79-100) Mean Corpuscular Hemoglobin 29 pg (25-35) Mean Corpuscular Hemoglobin Concent 34 g/dL (31-37) Red Cell Distribution Width 14.4 % (11.5-14.5) Platelet Count 322 x10^3/uL (140-400) Neutrophils (%) (Auto) 54 % (31-73) Lymphocytes (%) (Auto) 33 % (24-48) Monocytes (%) (Auto) 9 % (0-9) Eosinophils (%) (Auto) 4 % (0-3) Basophils (%) (Auto) 1 % (0-3) Neutrophils # (Auto) 5.5 x10^3/uL (1.8-7.7) Lymphocytes # (Auto) 3.4 x10^3/uL (1.0-4.8) Monocytes # (Auto) 0.9 x10^3/uL (0.0-1.1) Eosinophils # (Auto) 0.4 x10^3/uL (0.0-0.7) Basophils # (Auto) 0.1 x10^3/uL (0.0-0.2) Sodium Level 145 mmol/L (136-145) Potassium Level 3.9 mmol/L (3.5-5.1) Chloride Level 107 mmol/L (98-107) Carbon Dioxide Level 26 mmol/L (21-32) Anion Gap 12 (6-14) Blood Urea Nitrogen 16 mg/dL (7-20) Creatinine 1.0 mg/dL (0.6-1.0) Estimated GFR (Cockcroft-Gault) 67.6 BUN/Creatinine Ratio 16 (6-20) Glucose Level 85 mg/dL (70-99) Calcium Level 8.6 mg/dL (8.5-10.1) Total Bilirubin 0.2 mg/dL (0.2-1.0) Aspartate Amino Transf (AST/SGOT) 32 U/L (15-37) Alanine Aminotransferase (ALT/SGPT) 77 U/L (14-59) Alkaline Phosphatase 63 U/L (46-116) Total Protein 7.4 g/dL (6.4-8.2) Albumin 3.5 g/dL (3.4-5.0) Albumin/Globulin Ratio 0.9 (1.0-1.7) Urine Collection Type Unknown Urine Color Yellow Urine Clarity Clear Urine pH 6.0 Urine Specific [place] >=1.030 Urine Protein 30 mg/dL (NEG-TRACE) Urine Glucose (UA) Negative mg/dL (NEG) Urine Ketones (Stick) Trace mg/dL (NEG) Urine Blood Moderate (NEG) Urine Nitrite Negative (NEG) Urine Bilirubin Small (NEG) Urine Urobilinogen Dipstick 1.0 mg/dL (0.2 mg/dL) Urine Leukocyte Esterase Negative (NEG) Urine RBC 3-5 /HPF (0-2) Urine WBC 1-4 /HPF (0-4) Urine Squamous Epithelial Cells Mod /LPF Urine Amorphous Sediment Present /HPF Urine Bacteria Few /HPF (0-FEW) Urine Mucus Slight /LPF Urine Random Creatinine 484.9 mg/dL (Not Establ.) Urine Random Total Protein 41.5 mg/dL (Not Establ.) Urine Protein/Creatinine Ratio 86 mg/g (0-200) Urine Opiates Screen Neg (NEG) Urine Methadone Screen Neg (NEG) Urine Barbiturates Neg (NEG) Urine Phencyclidine Screen Neg (NEG) Urine Amphetamine/Methamphetamine Neg (NEG) Urine Benzodiazepines Screen Neg (NEG) Urine Cocaine Screen Neg (NEG) Urine Cannabinoids Screen Neg (NEG) Urine Ethyl Alcohol Neg (NEG) Bedside Urine HCG, Qualitative Hcg negative (Negative) Images Images CT HEAD WO CONTRAST History: Headache. Comparison: October 28, 2009 Technique: Noncontrast CT imaging was performed of the head. Coronal reconstruction was performed. Exposure: One or more of the following individualized dose reduction techniques were utilized for this examination: 1. Automated exposure control 2. Adjustment of the mA and/or kV according to patient size 3. Use of iterative reconstruction technique. Findings: No intracranial hemorrhage. No mass effect. No hydrocephalus. Partially empty sella. Imaged orbits are unremarkable. Complete opacification of the left maxillary sinus. Moderate left sphenoid sinus mucosal thickening with fluid. Scattered ethmoid sinus partial opacification with additional mucosal thickening in the frontal sinuses. Mastoid air cells are clear. No acute calvarial fracture. Impression: 1. No acute intracranial abnormality. 2. Paranasal sinus disease, can be seen with acute sinusitis in the appropriate clinical setting. 3. Partially empty sella, can be incidental although can be seen with intracranial hypertension or panhypopituitarism. Electronically signed by: Krunal Ramirez DO (08/14/2019 11:38 PM) [id number] VTE Prophylaxis Ordered VTE Prophylaxis Devices: No VTE Pharmacological Prophylaxi: Yes Assessment/Plan Assessment/Plan Impression: 1. No acute intracranial abnormality. 2. Paranasal sinus disease, can be seen with acute sinusitis in the appropriate clinical setting. 3. Partially empty sella, can be incidental although can be seen with intracranial hypertension or panhypopituitarism. 4. HYPERTENSION, URGENCY 5. POSSIBLE SARKIS'S SYNDROME PLAN ADMIT NEUROLOGY CONSULT TSH ACTH, FSH ENDOCRINE CONSULT OUT PT SERUM CORTISOL 77 MIN PT EXAM, CHART REVIEW, > 50% of time spent with chart review, pt exam, pt care coordination MARIE LEI MD Aug 15, 2019 11:33
[2019-08-15] MEDS ORDERED: amLODIPine BESYLATE 5 MG TABLET PO SCH (12:00)
--- NOTE | 2019-08-15 14:50 | RAD ---
CHEST PA LATERAL History: Hypertension Comparison: March 29, 2017 Findings: 2 views of the chest are submitted. There is no infiltrate, pneumothorax, or effusion. Pericardial cardiac silhouette is within normal limits in size. Impression: 1. There is no radiographic evidence of acute cardiopulmonary disease. Electronically signed by: Kyle Morales MD (08/15/2019 2:47 PM) [id number]
[2019-08-15 15:00] VITALS: BP 137/77
--- NOTE | 2019-08-15 15:16 | PDOC2 ---
CONSULT Date of Consult Date of Consult DATE: 08/15/19 TIME: 15:15 Identification/Chief Complaint Chief Complaint Intractable headaches. History of Present Illness Reason for Visit: This patient presented with complaint of dry cough, nasal congestion. Patient had previous history of chronic headache. She reports she has one-sided headache which were radiate to top and back of the head. Some headaches are associated with throbbing pain associated with nausea, photophobia. Patient denies any complaint of chest pain shortness of breath focal extremity weakness denies any problem with gait balance CT scan done brain did not show any evidence of acute intracranial etiology. Intractable headaches with features of migraine headaches. Current Problem List Problem List Problems Medical Problems: (1) Abnormal head CT Status: Acute (2) Headache Status: Acute (3) Hypertension Status: Acute Current Medications Current Medications Current Medications Lorazepam (Ativan Inj) 1 mg 1X ONCE IV Last administered on 08/14/19at 21:50; Start 08/14/19 at 22:00; Stop 08/14/19 at 22:01; Status DC Sodium Chloride 1,000 ml @ 1,000 mls/hr 1X ONCE IV Last administered on 08/14/19at 22:30; Start 08/14/19 at 22:30; Stop 08/14/19 at 23:29; Status DC Iohexol (Omnipaque 300 Mg/ml) 75 ml 1X ONCE IV ; Start 08/14/19 at 23:00; Stop 08/14/19 at 23:01; Status DC Info (CONTRAST GIVEN -- Rx MONITORING) 1 each PRN DAILY PRN MC SEE COMMENTS; Start 08/14/19 at 23:00; Stop 08/16/19 at 22:59 Amlodipine Besylate (Norvasc) 5 mg DAILY PO Last administered on 08/15/19at 12:05; Start 08/15/19 at 12:00 Active Scripts Active Ibuprofen 800 Mg Tablet 800 Mg PO PRN Q6HRS PRN Reported Sertraline Hcl 50 Mg Tablet 50 Mg PO DAILY Allergies Allergies: Coded Allergies: Penicillins (Verified Allergy, Intermediate, 04/23/17) cefprozil (Verified Allergy, Intermediate, 04/23/17) Physical Exam Physical Exam General no acute distress. HEENT: Normocephalic and atraumatic. NECK: Supple without bruit Respiratory: Clear to auscultation bilaterally Heart: Regular rate and rhythm, S1S2 normal NEUROLOGIC: Mental status Alert oriented No meningeal signs No papilledema. Cranial nerve equally reactive pupils, and intact extraocular movements. No facial asymmetry. Palate elevates and tongue protrudes in midline. Reflexes are 1-2 with flexor plantar responses. Strength able to move all exts equally. Sensory exam is intact for light touch and pinprick. Gait in bed. Vitals VITALS Vital Signs Date Time Temp Pulse Resp B/P (MAP) Pulse Ox O2 Delivery O2 Flow Rate FiO2 08/15/19 12:05 102 123/86 08/15/19 11:00 98.4 12 97 Room Air 98.4 Labs Labs Laboratory Tests Test 08/14/19 21:50 08/14/19 22:40 08/14/19 23:03 08/14/19 23:05 White Blood Count 10.3 x10^3/uL (4.0-11.0) Red Blood Count 5.10 x10^6/uL (3.50-5.40) Hemoglobin 14.9 g/dL (12.0-15.5) Hematocrit 44.2 % (36.0-47.0) Mean Corpuscular Volume 87 fL (79-100) Mean Corpuscular Hemoglobin 29 pg (25-35) Mean Corpuscular Hemoglobin Concent 34 g/dL (31-37) Red Cell Distribution Width 14.4 % (11.5-14.5) Platelet Count 322 x10^3/uL (140-400) Neutrophils (%) (Auto) 54 % (31-73) Lymphocytes (%) (Auto) 33 % (24-48) Monocytes (%) (Auto) 9 % (0-9) Eosinophils (%) (Auto) 4 % (0-3) Basophils (%) (Auto) 1 % (0-3) Neutrophils # (Auto) 5.5 x10^3/uL (1.8-7.7) Lymphocytes # (Auto) 3.4 x10^3/uL (1.0-4.8) Monocytes # (Auto) 0.9 x10^3/uL (0.0-1.1) Eosinophils # (Auto) 0.4 x10^3/uL (0.0-0.7) Basophils # (Auto) 0.1 x10^3/uL (0.0-0.2) Sodium Level 145 mmol/L (136-145) Potassium Level 3.9 mmol/L (3.5-5.1) Chloride Level 107 mmol/L (98-107) Carbon Dioxide Level 26 mmol/L (21-32) Anion Gap 12 (6-14) Blood Urea Nitrogen 16 mg/dL (7-20) Creatinine 1.0 mg/dL (0.6-1.0) Estimated GFR (Cockcroft-Gault) 67.6 BUN/Creatinine Ratio 16 (6-20) Glucose Level 85 mg/dL (70-99) Calcium Level 8.6 mg/dL (8.5-10.1) Total Bilirubin 0.2 mg/dL (0.2-1.0) Aspartate Amino Transf (AST/SGOT) 32 U/L (15-37) Alanine Aminotransferase (ALT/SGPT) 77 U/L (14-59) Alkaline Phosphatase 63 U/L (46-116) Total Protein 7.4 g/dL (6.4-8.2) Albumin 3.5 g/dL (3.4-5.0) Albumin/Globulin Ratio 0.9 (1.0-1.7) Urine Collection Type Unknown Urine Color Yellow Urine Clarity Clear Urine pH 6.0 Urine Specific [place] >=1.030 Urine Protein 30 mg/dL (NEG-TRACE) Urine Glucose (UA) Negative mg/dL (NEG) Urine Ketones (Stick) Trace mg/dL (NEG) Urine Blood Moderate (NEG) Urine Nitrite Negative (NEG) Urine Bilirubin Small (NEG) Urine Urobilinogen Dipstick 1.0 mg/dL (0.2 mg/dL) Urine Leukocyte Esterase Negative (NEG) Urine RBC 3-5 /HPF (0-2) Urine WBC 1-4 /HPF (0-4) Urine Squamous Epithelial Cells Mod /LPF Urine Amorphous Sediment Present /HPF Urine Bacteria Few /HPF (0-FEW) Urine Mucus Slight /LPF Urine Random Creatinine 484.9 mg/dL (Not Establ.) Urine Random Total Protein 41.5 mg/dL (Not Establ.) Urine Protein/Creatinine Ratio 86 mg/g (0-200) Urine Opiates Screen Neg (NEG) Urine Methadone Screen Neg (NEG) Urine Barbiturates Neg (NEG) Urine Phencyclidine Screen Neg (NEG) Urine Amphetamine/Methamphetamine Neg (NEG) Urine Benzodiazepines Screen Neg (NEG) Urine Cocaine Screen Neg (NEG) Urine Cannabinoids Screen Neg (NEG) Urine Ethyl Alcohol Neg (NEG) Bedside Urine HCG, Qualitative Hcg negative (Negative) Laboratory Tests Test 08/14/19 21:50 08/14/19 22:40 08/14/19 23:03 08/14/19 23:05 White Blood Count 10.3 x10^3/uL (4.0-11.0) Red Blood Count 5.10 x10^6/uL (3.50-5.40) Hemoglobin 14.9 g/dL (12.0-15.5) Hematocrit 44.2 % (36.0-47.0) Mean Corpuscular Volume 87 fL (79-100) Mean Corpuscular Hemoglobin 29 pg (25-35) Mean Corpuscular Hemoglobin Concent 34 g/dL (31-37) Red Cell Distribution Width 14.4 % (11.5-14.5) Platelet Count 322 x10^3/uL (140-400) Neutrophils (%) (Auto) 54 % (31-73) Lymphocytes (%) (Auto) 33 % (24-48) Monocytes (%) (Auto) 9 % (0-9) Eosinophils (%) (Auto) 4 % (0-3) Basophils (%) (Auto) 1 % (0-3) Neutrophils # (Auto) 5.5 x10^3/uL (1.8-7.7) Lymphocytes # (Auto) 3.4 x10^3/uL (1.0-4.8) Monocytes # (Auto) 0.9 x10^3/uL (0.0-1.1) Eosinophils # (Auto) 0.4 x10^3/uL (0.0-0.7) Basophils # (Auto) 0.1 x10^3/uL (0.0-0.2) Sodium Level 145 mmol/L (136-145) Potassium Level 3.9 mmol/L (3.5-5.1) Chloride Level 107 mmol/L (98-107) Carbon Dioxide Level 26 mmol/L (21-32) Anion Gap 12 (6-14) Blood Urea Nitrogen 16 mg/dL (7-20) Creatinine 1.0 mg/dL (0.6-1.0) Estimated GFR (Cockcroft-Gault) 67.6 BUN/Creatinine Ratio 16 (6-20) Glucose Level 85 mg/dL (70-99) Calcium Level 8.6 mg/dL (8.5-10.1) Total Bilirubin 0.2 mg/dL (0.2-1.0) Aspartate Amino Transf (AST/SGOT) 32 U/L (15-37) Alanine Aminotransferase (ALT/SGPT) 77 U/L (14-59) Alkaline Phosphatase 63 U/L (46-116) Total Protein 7.4 g/dL (6.4-8.2) Albumin 3.5 g/dL (3.4-5.0) Albumin/Globulin Ratio 0.9 (1.0-1.7) Urine Collection Type Unknown Urine Color Yellow Urine Clarity Clear Urine pH 6.0 Urine Specific [place] >=1.030 Urine Protein 30 mg/dL (NEG-TRACE) Urine Glucose (UA) Negative mg/dL (NEG) Urine Ketones (Stick) Trace mg/dL (NEG) Urine Blood Moderate (NEG) Urine Nitrite Negative (NEG) Urine Bilirubin Small (NEG) Urine Urobilinogen Dipstick 1.0 mg/dL (0.2 mg/dL) Urine Leukocyte Esterase Negative (NEG) Urine RBC 3-5 /HPF (0-2) Urine WBC 1-4 /HPF (0-4) Urine Squamous Epithelial Cells Mod /LPF Urine Amorphous Sediment Present /HPF Urine Bacteria Few /HPF (0-FEW) Urine Mucus Slight /LPF Urine Random Creatinine 484.9 mg/dL (Not Establ.) Urine Random Total Protein 41.5 mg/dL (Not Establ.) Urine Protein/Creatinine Ratio 86 mg/g (0-200) Urine Opiates Screen Neg (NEG) Urine Methadone Screen Neg (NEG) Urine Barbiturates Neg (NEG) Urine Phencyclidine Screen Neg (NEG) Urine Amphetamine/Methamphetamine Neg (NEG) Urine Benzodiazepines Screen Neg (NEG) Urine Cocaine Screen Neg (NEG) Urine Cannabinoids Screen Neg (NEG) Urine Ethyl Alcohol Neg (NEG) Bedside Urine HCG, Qualitative Hcg negative (Negative) Assessment/Plan Assessment/Plan This patient presented with complaint of dry cough, nasal congestion. Patient had previous history of chronic headache. She reports she has one-sided headache which were radiate to top and back of the head. Some headaches are associated with throbbing pain associated with nausea, photophobia. Patient denies any complaint of chest pain shortness of breath focal extremity weakness denies any problem with gait balance CT scan done brain did not show any evidence of acute intracranial etiology. Intractable headaches with features of migraine headaches.Patient was recommended further workup MRI of brain she will also follow up with her eye physician. May need a lumbar puncture to evaluate for further workup. Patient does not want to stay in the hospital for inpatient workup. She will follow up in neurology clinic. Plan discussed with patientpriscilla's family at bedside in detail PHONG WILHELM MD Aug 15, 2019 15:15
[2019-08-15] MEDS ORDERED: tiZANidine 4 MG TABLET. PO PRN (15:30)
--- NOTE | 2019-08-15 17:48 | NUR ---
Patient leaving AMA.
== END 2019-08-15 18:13 | disposition left against medical advice (07) | DRG 103 ==
LOC: ER 20:23 → 6 SOUTH 08-15 01:11
PROVIDERS: ADMIT Family Medicine; ATTEND Family Medicine
DX: G43.909 Migraine, unspecified, not intractable, without status migrainosus (principal); Z68.43 Body mass index [BMI] 50.0-59.9, adult; F17.210 Nicotine dependence, cigarettes, uncomplicated; F41.9 Anxiety disorder, unspecified; E66.9 Obesity, unspecified; I16.0 Hypertensive urgency; Z53.29 Procedure and treatment not carried out because of patient's decision for other reasons; Z90.49 Acquired absence of other specified parts of digestive tract; Z88.1 Allergy status to other antibiotic agents; Z88.0 Allergy status to penicillin; Z82.49 Family history of ischemic heart disease and other diseases of the circulatory system; I10 Essential (primary) hypertension
CPT/HCPCS: 36415; 70450; 71046; 80053; 80307; 81001; 81025; 82570; 84156; 85025; 96361; 96374; J2060; J7030; 99285-25; G0378

== ENCOUNTER → 2019-09-15 | Outpatient (CLI) | payer OTHER ==
[~2019-09-15] MED LIST changes: +SERT50TA8 PO
[2019-09-15 11:51] LABS: PROTHROMBIN TIME PATIENT 13.3 SEC (11.7-14.0)
[2019-09-15 11:52] LABS: BASO # 0.1 x10^3/uL (0.0-0.2); BASO % 1 % (0-3); EOS # 0.2 x10^3/uL (0.0-0.7); EOS % 2 % (0-3); HEMATOCRIT 43.1 % (36.0-47.0); HEMOGLOBIN 15.1 g/dL (12.0-15.5); LYMPH # 2.1 x10^3/uL (1.0-4.8); LYMPH % 23 % (24-48); MEAN CORPUSCULAR HEMOGLOBIN 30 pg (25-35); MEAN CORPUSCULAR HGB CONC 35 g/dL (31-37); MEAN CORPUSCULAR VOLUME 86 fL (79-100); MONO # 0.7 x10^3/uL (0.0-1.1); MONO % 8 % (0-9); NEUT # 6.2 x10^3/uL (1.8-7.7); NEUT % 66 % (31-73); PLATELET COUNT 367 x10^3/uL (140-400); RED BLOOD COUNT 5.02 x10^6/uL (3.50-5.40); RED CELL DISTRIBUTION WIDTH 14.5 % (11.5-14.5); WHITE BLOOD COUNT 9.4 x10^3/uL (4.0-11.0)
[2019-09-15 11:57] LABS: BARBITURATES NEG (NEG); BENZODIAZEPINES NEG (NEG); CANNABINOIDS NEG (NEG); COCAINE NEG (NEG); METHADONE NEG (NEG); OPIATES NEG (NEG); PHENCYCLIDINE NEG (NEG)
[2019-09-15 11:58] LABS: AMPHETAMINE/METHAMPHETAMINE NEG (NEG)
[2019-09-15 12:09] LABS: CALCIUM 9.1 mg/dL (8.5-10.1); CREATININE 0.9 mg/dL (0.6-1.0); GFR 76.3; POTASSIUM 3.8 mmol/L (3.5-5.1); TOTAL BILIRUBIN 0.4 mg/dL (0.2-1.0); TOTAL PROTEIN 7.9 g/dL (6.4-8.2)
== END | disposition home or self-care (01) ==
LOC: LAB 11:12
PROVIDERS: ATTEND Psychiatry & Neurology Neurology
DX: G93.2 Benign intracranial hypertension (principal); I10 Essential (primary) hypertension; E66.01 Morbid (severe) obesity due to excess calories
CPT/HCPCS: 36415; 80053; 80307; 84443; 85025; 85610

== ENCOUNTER 2019-10-18 09:16 | Outpatient (CLI) | payer OTHER ==
[2019-10-18 11:07] VITALS: BP 116/69
[2019-10-18 11:37] LABS: CSF COLOR COLORLESS; CSF PROTEIN 49.9 mg/dL (15.0-45.0)
[2019-10-18 11:38] LABS: CSF CLARITY CLEAR; CSF RBC COUNT 0 /cmm (Not Established); CSF WBC COUNT 0 /cmm (Not Established)
[2019-10-18 11:51] VITALS: BP 121/70
--- NOTE | 2019-10-18 12:03 | NUR ---
Discharge Note: ERICK CASTANON Discharge instructions and discharge home medications reviewed with Patient and a copy given. All questions have been answered and understanding verbalized. The following instructions and handouts were given: Lumbar Puncture post care Discontinued lines and drains: no lines to remove. Patient discharged to Home or Self Care withSignificant Othervia Wheelchair
--- NOTE | 2019-10-18 13:50 | RAD ---
Fluoroscopically Guided Lumbar Puncture for CSF Sampling: Clinical History: head ache. Procedure: The relative benefits, risks and alternatives to the procedure were discussed and verbal written informed consent was obtained. The patient was placed prone and slightly oblique on the fluoroscopic table and bony landmarks were used to plan for a lumbar puncture. The patient was carefully prepped and draped in a sterile fashion and with local anesthetic and sterile technique, a 20-gauge needle was advanced at the L5-S1 level. Clear CSF was seen and approximately 9 cc of clear fluid was aspirated and sent for testing. Opening pressure was measured and found to be 12 cm of water. Closing pressure was measured and found to be 7 cm of water. The procedure was well tolerated and the patient was sent to Recovery in good condition. Patient was later sent home in good condition with instructions to contact physician should if developed signs or symptoms of pain, bleeding or infection. The patient was also encouraged to drink of oral fluids to decrease chances of having a spinal headache. Total patient fluoro time: 0.3 minutes. Impression: Status post fluoroscopic guided lumbar puncture for spinal tap. Electronically signed by: Matthew Granado MD (10/18/2019 1:47 PM) [facility]
[2019-10-20 11:12] LABS: HERPES SIMPLEX TYPE 1 Negative (Negative); HERPES SIMPLEX TYPE 2 Negative (Negative)
== END 2019-10-18 12:06 | disposition home or self-care (01) ==
LOC: RAD 09:16
PROVIDERS: ATTEND Psychiatry & Neurology Neurology
DX: R51 Headache (principal); G93.2 Benign intracranial hypertension
CPT/HCPCS: 36415; 62270; 62328; 82945; 84157; 87071; 87075; 87102; 87252; 87529; 89051

== ENCOUNTER → 2020-03-10 | Outpatient (CLI) | payer OTHER ==
--- NOTE | 2020-03-10 16:13 | CARD ---
MR#: [id number] Date of Study: 03/10/2020 Ordering Physician: MADI REYNOLDS, Referring Physician: MADI REYNOLDS, Tech: Tomeka Maldonado APPROVED REPORT EXAM: Two-dimensional and M-mode echocardiogram with Doppler and color Doppler. Other Information Quality : FairHR: 92bpm Technically limited study due to body habitus. INDICATION Murmur RISK FACTORS Hypertension Smoking quit smoking 3 months ago 2D DIMENSIONS Left Atrium(2D)3.2 (1.6-4.0cm)IVSd1.0 (0.7-1.1cm) Aortic Root(2D)3.2 (2.0-3.7cm)LVDd5.6 (3.9-5.9cm) LVOT Diameter2.0 (1.8-2.4cm)PWd1.1 (0.7-1.1cm) LVDs3.0 (2.5-4.0cm)FS (%) 46.3 % SV118.0 ml Aortic Valve AoV Peak Alfredo.123.1cm/sAoV VTI23.2cm AO Peak GR.6.1mmHgLVOT Peak Alfredo.99.7cm/s LVOT VTI 23.53cmAO Mean GR.3mmHg AMANDA (VMAX)1.78xk8HVP (VTI)3.24cm2 Mitral Valve MV E Okkalkmk31.8cm/sMV DECEL [id number] MV A Mxaivqoy76.8cm/sMV E Mean Gr.2mmHg MV [id number] Ratio1.7 MVA (PHT)3.33cm2 TDI E/Lateral E'7.0E/Medial E'8.2 Pulmonary Valve PV Peak Ifkwfxah325.7cm/sPV Peak Grad.4mmHg Pulmonary Vein S1 Faqiarlh78.6cm/sD2 Qqaabiho04.4cm/s PVa [id number] LEFT VENTRICLE The left ventricle is normal size. There is borderline concentric left ventricular hypertrophy. The l eft ventricular systolic function is normal and the ejection fraction is within normal range. The Eje ction Fraction is 50-60%. There is normal LV segmental wall motion. Transmitral Doppler flow pattern is Grade II-pseudonormal filling dynamics. RIGHT VENTRICLE The right ventricle is normal size. There is normal right ventricular wall thickness. The right ventr icular systolic function is normal. ATRIA The left atrium size is normal. The right atrium size is normal. The atrial septum is mildly aneurysm al. AORTIC VALVE The aortic valve is normal in structure and function. Doppler and Color Flow revealed no significant aortic regurgitation. There is no significant aortic valvular stenosis. MITRAL VALVE The mitral valve is normal in structure and function. There is no evidence of mitral valve prolapse. There is no mitral valve stenosis. Doppler and Color-flow revealed trace mitral regurgitation. TRICUSPID VALVE The tricuspid valve is normal in structure and function. Doppler and Color Flow revealed no tricuspid valve regurgitation noted. There is no tricuspid valve stenosis. PULMONIC VALVE The pulmonic valve is not well visualized. Doppler and Color Flow revealed no pulmonic valvular regur gitation. GREAT VESSELS The aortic root is normal in size. The IVC is normal in size and collapses >50% with inspiration. PERICARDIAL EFFUSION There is no evidence of significant pericardial effusion. Critical Notification Critical Value: No <Conclusion> The left ventricle is normal size. The left ventricular systolic function is normal and the ejection fraction is within normal range. The Ejection Fraction is 50-60%. Doppler and Color Flow revealed no significant aortic regurgitation. There is no significant aortic valvular stenosis. Doppler and Color-flow revealed trace mitral regurgitation. Doppler and Color Flow revealed no tricuspid valve regurgitation noted. Signed by : Madi Reynolds MD Electronically Approved : 03/10/2020 16:13:34
== END ==
LOC: ECHO 14:13
PROVIDERS: ATTEND Internal Medicine Cardiovascular Disease
DX: R01.1 Cardiac murmur, unspecified (principal)
CPT/HCPCS: 93306

== ENCOUNTER → 2020-04-12 | Outpatient (CLI) | payer OTHER ==
[2020-04-12 12:38] LABS: CHOLESTEROL/HDL RATIO 5.1
--- NOTE | 2020-04-12 15:32 | RAD ---
Single view of the chest. 04/12/2020 12:42 PM Indication: Reason: PREOP / Spl. Instructions: / History: Comparison: Chest radiograph August 15, 2019 Findings: There is no focal consolidation. There is no pleural effusion or pneumothorax. The cardiomediastinal silhouette and pulmonary vasculature are within normal limits. No acute osseous abnormalities are seen. Impression: No evidence of acute cardiopulmonary process. Electronically signed by: Ricardo Langley MD (04/12/2020 3:29 PM) [id number]
== END | disposition home or self-care (01) ==
LOC: LAB 11:17
PROVIDERS: ATTEND Surgery
DX: Z01.818 Encounter for other preprocedural examination (principal)
CPT/HCPCS: 36415; 71046; 80061; 83036; 84443; 87338

== ENCOUNTER → 2020-12-20 | Outpatient (CLI) | payer OTHER ==
[~2020-12-20] MED LIST changes: -CLIN150C14 PO; +CLIN150C15 PO; -CLIN300C8 PO; +CLIN300C9 PO; +SERT-267 PO; -SERT50TA8 PO
[2020-12-20 11:12] LABS: BASO # 0.1 x10^3/uL (0.0-0.2); BASO % 1 % (0-3); EOS # 0.2 x10^3/uL (0.0-0.7); EOS % 3 % (0-3); HEMATOCRIT 38.7 % (36.0-47.0); HEMOGLOBIN 13.5 g/dL (12.0-15.5); LYMPH # 1.6 x10^3/uL (1.0-4.8); LYMPH % 28 % (24-48); MEAN CORPUSCULAR HEMOGLOBIN 30 pg (25-35); MEAN CORPUSCULAR HGB CONC 35 g/dL (31-37); MEAN CORPUSCULAR VOLUME 87 fL (79-100); MONO # 0.4 x10^3/uL (0.0-1.1); MONO % 7 % (0-9); NEUT # 3.4 x10^3/uL (1.8-7.7); NEUT % 61 % (31-73); PLATELET COUNT 280 x10^3/uL (140-400); RED BLOOD COUNT 4.45 x10^6/uL (3.50-5.40); RED CELL DISTRIBUTION WIDTH 12.9 % (11.5-14.5); WHITE BLOOD COUNT 5.5 x10^3/uL (4.0-11.0)
[2020-12-20 11:46] LABS: ALBUMIN 3.4 g/dL (3.4-5.0); CALCIUM 8.4 mg/dL (8.5-10.1); CHOLESTEROL/HDL RATIO 3.8; CREATININE 0.8 mg/dL (0.6-1.0); GFR 86.7; POTASSIUM 3.6 mmol/L (3.5-5.1); TOTAL BILIRUBIN 0.4 mg/dL (0.2-1.0); TOTAL PROTEIN 6.7 g/dL (6.4-8.2)
[2020-12-20 22:08] LABS: HEMOGLOBIN A1C 4.8 % (4.8-5.6)
[2020-12-20 23:08] LABS: CALCIUM PTH 9.1 mg/dL (8.7-10.2); CREATININE PTH 0.77 mg/dL (0.57-1.00); PHOSPHORUS PTH 3.5 mg/dL (3.0-4.3); PTH INTACT 34 pg/mL (15-65)
== END ==
LOC: LAB 10:41
PROVIDERS: ATTEND Surgery
DX: K91.2 Postsurgical malabsorption, not elsewhere classified (principal)
CPT/HCPCS: 80053; 80061; 82306; 82607; 83036; 83540; 83550; 83735; 83970; 84425; 84630; 85025

== ENCOUNTER → 2021-07-05 | Outpatient (CLI) | payer OTHER ==
[~2021-07-05] MED LIST changes: +CLIN-94 PO; -CLIN150C15 PO; +CLIN150C16 PO; -CLIN300C9 PO
--- NOTE | 2021-07-05 12:31 | KCIC ---
AP and Lateral Views of the Chest 07/05/2021 11:29 AM Indication: Reason: COUGH, NASAL DRAINAGE, DIARRHEA PAST 2 WEEKS, NEG COVID TEST / Spl. Instructions: / History: Comparison: Chest radiograph April 12, 2020 Findings: There is no focal consolidation or infiltrate identified. The cardiomediastinal silhouette is within normal limits. There is no evidence of pneumothorax or pleural effusion. No acute osseous a bnormalities are identified. Impression: No evidence of acute cardiopulmonary process. Electronically signed by: Ricardo Langley MD (07/05/2021 12:29 PM) [id number]
== END ==
LOC: KCIC 11:26
PROVIDERS: ATTEND Family Medicine
DX: R05 Cough (principal)
CPT/HCPCS: 71046

== ENCOUNTER → 2021-11-28 | Outpatient (CLI) | payer MEDICAID, OTHER ==
[2021-11-28 11:18] LABS: HEMATOCRIT 41.1 % (36.0-47.0); HEMOGLOBIN 13.9 g/dL (12.0-15.5); RED BLOOD COUNT 4.64 x10^6/uL (3.50-5.40); RED CELL DISTRIBUTION WIDTH 13.4 % (11.5-14.5); WHITE BLOOD COUNT 7.4 x10^3/uL (4.0-11.0)
[2021-11-28 11:53] LABS: ALBUMIN 3.6 g/dL (3.4-5.0); CALCIUM 8.2 mg/dL (8.5-10.1); CREATININE 0.7 mg/dL (0.6-1.0); GFR 100.4; POTASSIUM 3.7 mmol/L (3.5-5.1); TOTAL BILIRUBIN 0.3 mg/dL (0.2-1.0); TOTAL PROTEIN 7.3 g/dL (6.4-8.2); URIC ACID 4.7 mg/dL (2.6-6.0)
[2021-11-29 18:25] LABS: RUBELLA IGG ANTIBODY <0.90 index (Immune >0.99)
== END ==
LOC: LAB 10:43
PROVIDERS: ATTEND Obstetrics & Gynecology
DX: Z34.91 Encounter for supervision of normal pregnancy, unspecified, first trimester (principal)
CPT/HCPCS: 36415; 80053; 83615; 84550; 85027; 85660; 86592; 86703; 86762; 86787; 86803; 86850; 86900; 86901; 87340

== ENCOUNTER → 2021-11-30 | Outpatient (CLI) | payer MEDICAID, OTHER ==
--- NOTE | 2021-11-30 17:24 | RAD ---
EXAMINATION: US OB <14 WKS +TV, 11/30/2021 3:51 PM CLINICAL INDICATION: , unsure of dates TECHNIQUE: Grayscale, color and spectral Doppler ultrasound images of the pelvis via first trimester OB protocol. COMPARISON: None. FINDINGS: The uterus measures 12 x 7 x 7 cm. There is a gestational sac containing a single embryo with crown-r ump length of 0.28 cm, consistent with gestational age 5 weeks 6 days. cardiac activity is visu alized with heart rate of 137 bpm. Sonographic CORAL is 07/27/2022. Small nabothian cysts in the cervix . The right ovary measures 3.3 x 1.4 x 2.0 cm. The left ovary measures 3.4 x 2.2 x 2.8 cm. There is a 9 mm corpus luteum cyst in the left ovary. Normal ovarian blood flow bilaterally There is no adnexal m ass or free fluid.. IMPRESSION: Single living intrauterine with gestational age 5 weeks 6 days. heart rat e 137 bpm. Sonographic CORAL is 07/27/2022. Electronically signed by: Gina Anderson MD (11/30/2021 5:21 PM) [id number]
== END ==
LOC: US 15:49
PROVIDERS: ATTEND Obstetrics & Gynecology
DX: O00.01 Abdominal pregnancy with intrauterine pregnancy (principal); Z3A.01 Less than 8 weeks gestation of pregnancy
CPT/HCPCS: 76801; 76817

== ENCOUNTER → 2022-02-26 | Outpatient (CLI) | payer MEDICAID ==
--- NOTE | 2022-02-26 16:58 | RAD ---
US OB >14 WEEKS History: Reason: 2nd trimester Anatomy scan-Normal / Spl. Instructions: / History: Comparison: Ultrasound November 30, 2021 Technique: Multiple grayscale images, color Doppler, and M-mode images of the uterus are obtained. Findings: There is a single intrauterine gestation in breech presentation. The placenta is anterior in location without evidence of placenta previa. The amount of amniotic fluid appears appropriate. Amniotic flu id index is 10.9 cm. Cervical length is 4.2 cm. Biometrical data: BPD = 4.75 cm for 20 weeks 3 days. HC = 17.70 cm for 20 weeks 2 days. AC = 15.51 cm for 20 weeks 5 days. FL = 3.25 cm for 20 weeks 1 days. HC/AC ratio = 1.15. Overall, the estimated sonographic gestational age is 20 weeks 3 days for an estimated date of delive ry of July 13, 2022. The estimated date of delivery provided by the last menstrual period is 2021. Estimated weight is 352 grams. (12 ounces +/- 2 ounces). The estimated heart rate is 163 beats per minute. Bilateral upper and lower extremities are identified. There is a three-vessel cord with cord insertion visualized. stomach and urinary bladder are identified. Both kidneys are seen. Degraded evaluation due to patient body habitus. The brain, nose/lips and heart are not well se en. Impression: 1. Degraded evaluation, as described. 2. Single intrauterine gestation with estimated gestational age 20 weeks 3 days. Estimated date of d elivery 2 weeks more advanced compared to prior ultrasound and last menstrual period. Electronically signed by: Krunal Ramirez DO (02/26/2022 4:55 PM) [id number]
== END ==
LOC: US 10:15
PROVIDERS: ATTEND Obstetrics & Gynecology
DX: Z34.92 Encounter for supervision of normal pregnancy, unspecified, second trimester (principal)
CPT/HCPCS: 76805